=== PATIENT | male | born 1975 | race Caucasian/White ===

== ENCOUNTER 2022-03-18 13:26 | Emergency (ER) | payer MEDICAID, SELFPAY ==
--- NOTE | ~2022-03-18 | XR_ITS ---
EXAMINATION: XR CHEST CLINICAL INFORMATION: Shortness of breath. COMPARISON: None TECHNIQUE: 2 views of the chest were obtained. FINDINGS: No significant abnormality is noted involving the heart, lungs, mediastinum, or soft tissues. Mild degenerative changes of the spine. XR/XR chest 2V IMPRESSION: Unremarkable examination.
[2022-03-18 13:27] VITALS: BP 122/101; PULSE 100; RESP 18; TEMP 36.7; O2SAT 98; BMI 30.7
--- NOTE | 2022-03-18 13:28 | ED.SOB ---
HPI - SOB/Dyspnea General Chief Complaint: General Medical Stated Complaint: chf retaining fluids Time Seen by Provider: 03/18/22 18:27 Source: patient Mode of arrival: ambulatory Limitations: no limitations History of Present Illness HPI Narrative: 47 yo male who is transitioning to female and goes by KERRI w/ history of HTN, fibromyalgia, CHF, hepatitis C here with complaints of leg swelling and some cold symptoms who recently ran out of Lasix. Last dose of Lasix was Friday. No shortness of breath, chest pain, fevers or chills. Patient is currently residing in a jail house. Patient denies any history of DVTs or PEs. Related Data Previous Rx's Medication Instructions Recorded furosemide 40 mg tablet (Lasix) 40 mg PO QAM #60 tabs 03/18/22 Allergies Allergy/AdvReac Type Severity Reaction Status Date / Time cephalexin Allergy Mild Hives Verified 03/18/22 13:29 Review of Systems Review of Systems: Yes all other systems are reviewed and are negative Constitutional: Constitutional: Reports no additional constitutional complaints, Denies body ache(s), Denies chills, Denies fever(s), Denies headache(s) and Denies weakness Eyes: Eyes: Reports no additional eye complaints and Denies change in vision ENT: Reports system reviewed and no additional complaints, except as documented, Denies dizziness, Denies headache(s), Denies nasal congestion, Denies nasal discharge and Denies neck pain Cardiovascular: Cardiovascular: Reports no additional cardiovascular complaints, Denies chest pain, Reports leg edema and Denies dyspnea Respiratory: Respiratory: Reports no additional respiratory complaints, Reports cough and Denies dyspnea Gastrointestinal: Gastrointestinal: Reports no additional gastrointestinal complaints, Denies abdominal pain, Denies diarrhea, Denies nausea and Denies vomiting Genitourinary: Genitourinary: Denies urinary incontinence Musculoskeletal: Musculoskeletal: Reports no additional musculoskeletal complaints, Denies back pain, Denies arthralgias, Denies joint swelling, Denies neck pain, Denies numbness and Denies tingling Integumentary/Breasts: Skin/Breast: Reports system reviewed and no additional complaints, except as docu and Denies rash Neurologic: Reports system reviewed and no additional complaints, except as documented, Denies Abnormal speech present, Denies dizziness, Denies headache(s), Denies numbness, Denies tingling and Denies weakness PMF Social History Social History Advance Directives: Yes Advance Directives on File: No Physical Exam Vital Signs: Vital Signs: Last Vital Signs Temp 98.1 F 03/18/22 13:27 Pulse 100 03/18/22 13:27 Resp 18 03/18/22 13:27 BP 122/101 H 03/18/22 13:27 Pulse Ox 98 03/18/22 13:27 O2 Del Method 03/18/22 13:27 BMI result Body Mass Index 30.7 Const: General: cooperative, healthy appearing, comfortable and no acute distress Orientation/consciousness: patient oriented x3 Limitations: no limitations HEENT: Head: Yes normal to inspection Ears: hearing grossly normal bilaterally General nose exam: Normal external nose present Face and sinus: Yes normal facial exam Mouth: Normal oral and palatal mucosa present Throat: Yes posterior oropharynx normal Eyes: General: appearance normal, both eyes and all related structures Pupils: Equal, round and reactive pupils present Neck: Neck: Yes normal visual inspection Chest: Chest palpation & inspection: normal inspection of the chest Resp: Effort & Inspection: normal respiratory effort Auscultation: clear to auscultation bilaterally Cardio: Rate: regular rate Rhythm: regular rhythm Peripheral pulses: Peripheral pulses 2+ throughout GI: Inspection: Yes normal to inspection Palpation (GI): Soft to palpation and nontender Auscultation: normal bowel sounds Back/Spine/Pelvis: Thoracic/Lumbar Spine: thoracic and lumbar spine normal to inspection Skin: General skin exam: no rashes or lesions noted Neuro: General: patient oriented x3, no focal motor deficits and normal sensation to monofilament Cranial nerves: Yes Equal, round and reactive pupils present Cognition (Neuro): normal cognition Speech: No Abnormal speech present Gait exam (Neuro): Normal gait present Motor exam (neuro): 5/5 motor strength present throughout Extrem: Other: Bilateral edema nonpitting no redness or warmth no tenderness Normal distal pulses General: Yes normal to inspection Course Course Course Narrative: This is rapid medical exam. Deferred additional HPI, ROS, PE to primary provider. 47 yo male who is transitioning to female and goes by KERRI dove/ history of HTN, fibromyalgia, CHF, hepatitis C here with complaints of leg swelling and some cold symptoms who recently ran out of Lasix. Last dose of Lasix was Friday. Will obtain labs, EKG, chest x-ray. Vital state Reevaluation(s) Reevaluation #1: No evidence of CHF on chest x-ray. Vitals are stable. Patient with mild lower extremity swelling. No concern for DVT. Patient ran out of Lasix. Patient is currently in a jail home and been unable to get a touch with her primary care for refill. Will give refill for 2 months and recommend patient follow-up with primary outpatient. Reviewed worrisome signs and symptoms of when to return to the emergency room. Comfortable plan for discharge home. Medical Decision Making Medical Decision Making [facility] Narrative: 47-year-old patient here with increasing leg swelling and cough after running out of Lasix. No chest pain, shortness of breath or fever Will obtain labs, EKG, chest x-ray Differential Diagnosis Differential Diagnoses: The differential diagnosis associated with the presentation includes Low concern for DVT, CHF exacerbation Lab Data [facility] Lab Attestation statement: I reviewed the patient's lab results. 03/18/22 14:46 03/18/22 14:46 Labs: Lab Results 03/18/22 03/18/22 03/18/22 Range/Units 14:46 14:46 14:46 WBC 5.5 (4.8-10.8) X10*3/uL RBC 3.72 L (4.60-5.80) X10*6/uL Hgb 11.4 L (14.0-18.0) g/dl Hct 35.7 L (42.0-52.0) % MCV 96.0 (80.0-98.0) fL MCH 30.6 (27.0-33.0) pg MCHC 31.9 (31.0-36.0) g/dl RDW 13.8 (11.0-16.0) % Plt Count 270 (160-400) X10*3/uL MPV 10.6 (9.4-12.4) fL Immature Gran % (Auto) 0.5 H (0.0-0.4) % Neut % (Auto) 49.1 (45-73) % Lymph % (Auto) 33.7 (20-40) % Cannon % (Auto) 10.0 (2-11) % Eos % (Auto) 5.8 H (0-4) % Baso % (Auto) 0.9 (0-2) % Lymph # (Auto) 1.9 (1.2-4.9) X10*3/uL Cannon # (Auto) 0.6 (0.1-1.2) X10*3/uL Eos # (Auto) 0.3 (0.0-0.4) X10*3/uL Baso # (Auto) 0.1 (0.0-0.2) X10*3/uL Abs Immat Gran (auto) 0.03 (0.00-0.03) X10*3/uL Absolute Neuts (auto) 2.7 (2.0-8.3) x10*3/uL Absolute Nucleated RBC 0.000 (0.0-0.012) X10*3/uL Nucleated RBC % (auto) 0.0 (0.0-0.2) /100WBC Sodium 139 (135-145) mmol/L Potassium 4.6 (3.3-5.1) mmol/L Chloride 108 (96-108) mmol/L Carbon Dioxide 24 (22-29) mmol/L Anion Gap 12 (12-20) BUN 17 H (9-16) mg/dL Creatinine 0.79 (0.5-1.4) mg/dL Estim Creat Clear Calc 137.6 Estimated GFR > 60 Random Glucose 149 H (60-115) mg/dL Calcium 8.6 (8.4-10.2) mg/dL Total Bilirubin 0.3 (0.0-1.0) mg/dL Direct Bilirubin < 0.2 (0.0-0.5) mg/dL AST 42 H (5-37) U/L ALT 56 H (0-40) U/L Alkaline Phosphatase 67 (39-117) U/L Troponin I High Sens < 3.5 (<3.5-35.0) ng/L B-Natriuretic Peptide (<100) pg/mL Total Protein 6.2 L (6.5-8.0) g/dL Albumin 3.6 (3.5-5.0) g/dL 03/18/22 Range/Units 14:46 WBC (4.8-10.8) X10*3/uL RBC (4.60-5.80) X10*6/uL Hgb (14.0-18.0) g/dl Hct (42.0-52.0) % MCV (80.0-98.0) fL MCH (27.0-33.0) pg MCHC (31.0-36.0) g/dl RDW (11.0-16.0) % Plt Count (160-400) X10*3/uL MPV (9.4-12.4) fL Immature Gran % (Auto) (0.0-0.4) % Neut % (Auto) (45-73) % Lymph % (Auto) (20-40) % Cannon % (Auto) (2-11) % Eos % (Auto) (0-4) % Baso % (Auto) (0-2) % Lymph # (Auto) (1.2-4.9) X10*3/uL Cannon # (Auto) (0.1-1.2) X10*3/uL Eos # (Auto) (0.0-0.4) X10*3/uL Baso # (Auto) (0.0-0.2) X10*3/uL Abs Immat Gran (auto) (0.00-0.03) X10*3/uL Absolute Neuts (auto) (2.0-8.3) x10*3/uL Absolute Nucleated RBC (0.0-0.012) X10*3/uL Nucleated RBC % (auto) (0.0-0.2) /100WBC Sodium (135-145) mmol/L Potassium (3.3-5.1) mmol/L Chloride (96-108) mmol/L Carbon Dioxide (22-29) mmol/L Anion Gap (12-20) BUN (9-16) mg/dL Creatinine (0.5-1.4) mg/dL Estim Creat Clear Calc Estimated GFR Random Glucose (60-115) mg/dL Calcium (8.4-10.2) mg/dL Total Bilirubin (0.0-1.0) mg/dL Direct Bilirubin (0.0-0.5) mg/dL AST (5-37) U/L ALT (0-40) U/L Alkaline Phosphatase (39-117) U/L Troponin I High Sens (<3.5-35.0) ng/L B-Natriuretic Peptide 82 (<100) pg/mL Total Protein (6.5-8.0) g/dL Albumin (3.5-5.0) g/dL Independent Interpretation I performed an independent interpretation of an: EKG and Plain X-Ray (I independently reviewed the x-ray and agree with the radiologist's report) Interpretation: I independently reviewed the EKG which shows sinus rhythm with occasional PVCs with rate of 96, normal NC, normal QRS, normal QT Radiology Impression Discussion of test interpretation with radiology: I have reviewed the radiologist's reading. Radiologist Impression: [address] [address] XRay Report Signed Patient: Pj Lopez MR#: [id number] : 1975 Acct:[id number] Age/Sex: 47 / M ADM Date: 03/18/22 Loc: .ED Attending Dr: Ordering Physician: Rosibel Khanna NP Date of Service: 03/18/22 Procedure(s): XR chest 2V Accession Number(s): [id number] cc: Rosibel Khanna NP~ EXAMINATION: XR CHEST CLINICAL INFORMATION: Shortness of breath. COMPARISON: None TECHNIQUE: 2 views of the chest were obtained. FINDINGS: No significant abnormality is noted involving the heart, lungs, mediastinum, or soft tissues. Mild degenerative changes of the spine. XR/XR chest 2V IMPRESSION: Unremarkable examination. Discharge Plan Discharge Clinical Impression: Medication refill Patient Disposition: Home, Self-Care Instructions: Medicine Refill (ED) Additional Instructions: Labs, EKG and chest x-ray are reassuring. Elevate your legs, limit sodium Prescriptions: New furosemide [Lasix] 40 mg tablet 40 mg PO QAM Qty: 60 0RF Referrals: Physician,Nonstaff [Primary Care Provider] -
--- NOTE | 2022-03-18 13:29 | ECG_ITS ---
Test Reason : edema Blood Pressure : / mmHG Vent. Rate : 096 BPM Atrial Rate : 096 BPM P-R Int : 184 ms QRS Dur : 096 ms QT Int : 368 ms P-R-T Axes : 031 022 036 degrees QTc Int : 464 ms Sinus rhythm with occasional Premature ventricular complexes Otherwise normal ECG No previous ECGs available Referred By: Rosibel Estrada Electronically Signed By:Siva Lopez
[2022-03-18 15:07] LABS: Basophils Absolute Auto 0.1 X10*3/uL (0.0-0.2); Basophils Percent Auto 0.9 % (0-2); Eosinophils Absolute Auto 0.3 X10*3/uL (0.0-0.4); Eosinophils Percent Auto 5.8 % (0-4); Hematocrit 35.7 % (42.0-52.0); Hemoglobin 11.4 g/dl (14.0-18.0); Imm Gran Abs Auto 0.03 X10*3/uL (0.00-0.03); Imm Gran Pct Auto 0.5 % (0.0-0.4); Lymphocytes Absolute Auto 1.9 X10*3/uL (1.2-4.9); Lymphocytes Percent Auto 33.7 % (20-40); MANUAL DIFF FLAG NO; Mean Corpuscular HGB Conc 31.9 g/dl (31.0-36.0); Mean Corpuscular Hemoglobin 30.6 pg (27.0-33.0); Mean Platelet Volume 10.6 fL (9.4-12.4); Monocytes Absolute Auto 0.6 X10*3/uL (0.1-1.2); Neutrophils Absolute Auto 2.7 x10*3/uL (2.0-8.3); Neutrophils Percent Auto 49.1 % (45-73); Platelet Count 270 X10*3/uL (160-400); Red Blood Count 3.72 X10*6/uL (4.60-5.80); Red Cell Distribution Width 13.8 % (11.0-16.0); White Blood Count 5.5 X10*3/uL (4.8-10.8)
[2022-03-18 15:22] LABS: Alanine Aminotransferase 56 U/L (0-40); Albumin Level 3.6 g/dL (3.5-5.0); Alkaline Phosphatase 67 U/L (39-117); Anion Gap 12 (12-20); Aspartate Amino Transferase 42 U/L (5-37); Bilirubin Direct < 0.2 mg/dL (0.0-0.5); Bilirubin Total 0.3 mg/dL (0.0-1.0); Blood Urea Nitrogen 17 mg/dL (9-16); Calcium 8.6 mg/dL (8.4-10.2); Carbon Dioxide 24 mmol/L (22-29); Chloride 108 mmol/L (96-108); Creatinine Clr Calc Pharmacy 137.6; Estimated Glomerular Filt Rate > 60; Glucose Random 149 mg/dL (60-115); Potassium 4.6 mmol/L (3.3-5.1); Sodium 139 mmol/L (135-145); Total Protein 6.2 g/dL (6.5-8.0)
[2022-03-18 15:28] LABS: B Type Natriuretic Peptide 82 pg/mL (<100)
[2022-03-18 15:31] LABS: Troponin-I High Sensitivity < 3.5 ng/L (<3.5-35.0)
== END 2022-03-18 18:34 | disposition home or self-care (01) ==
PROVIDERS: Nurse Practitioner Family; Emergency Provider Emergency Medicine Emergency Medical Services
DX: R06.02 Shortness of breath (principal); I10 Essential (primary) hypertension; R60.0 Localized edema; Z76.0 Encounter for issue of repeat prescription; Z79.899 Other long term (current) drug therapy
CPT/HCPCS: 36415; 71046; 80048; 80076; 83880; 84484; 85025; 93005; 99283

== ENCOUNTER → 2022-05-16 14:03 | Outpatient (REF) | payer MEDICARE, MEDICAID, OTHER, SELFPAY ==
--- NOTE | 2022-05-16 14:12 | CA_ITS ---
Transthoracic Echocardiogram Patient (Last, First, Middle): Pj Lopez, Gender: Male Date of : 1975 Age: 47 Procedure Date: 05/16/2022 Procedure Type: Transthoracic Echocardiogram Location: OP Height: 180.34 cm Weight: 113.4 kg BSA: 2.32 m2 Heart Rate: 83 bpm BP: 124 / 78 mmHg Surgical Elastic Knitter: SB Referring MD: Cherie Benítez Symptoms: HX OF HF WITH EF...15% I50.1 Study Quality: Adequate ECG Rhythm: Sinus Conclusions: - The left ventricular systolic function is mildly decreased. The calculated ejection fraction is 44% by biplane method. - No obvious valvular pathology seen on this study. Findings Left Ventricle Mildly increased left ventricular cavity size. There is normal left ventricular wall thickness. The left ventricular systolic function is mildly decreased. The calculated ejection fraction is 44% by biplane method. There is mild global hypokinesis. Diastolic function is normal for age. Right Ventricle Normal right ventricular cavity size and systolic function. Atria Both atria are normal in size. Aortic Valve There is a normal trileaflet aortic valve. There is no aortic valve stenosis. There is no aortic valve regurgitation. Mitral Valve The mitral valve appears normal. There is trace mitral valve regurgitation. There is no mitral valve stenosis. Pulmonic Valve The pulmonic valve is likely normal. Tricuspid Valve Normal tricuspid valve structure. There is trace tricuspid valve regurgitation. There is no evidence of pulmonary hypertension. Great Vessels The asc aorta and aortic arch are normal in size. Venous The inferior vena cava was not well visualized. Pericardium/Pleural There is no evidence of pericardial effusion. Prior Study Comparison No prior study available for comparison. Recommendations, Care & Conclusions No obvious valvular pathology seen on this study. Measurements 2D Linear Measurements IVSd: 0.71 0.6-0.9/0.6-1.0 cm LVIDd: 5.79 3.9-5.3/4.2-5.9 cm LVIDd Index: 2.50 2.4-3.2/2.2-3.1 cm/m2 LVIDs: 5.01 2.0-3.6 cm LVPWd: 0.70 0.7-1.1 cm LA Diam: 3.90 2.7-3.8/3.0-4.0 cm LAIDs Index: 1.68 1.5-2.3 cm/m2 LV Mass: 186.47 67-162/88-224 g LV Mass Index: 80.38 43-95/49-115 g/m2 LVOT Diam: 2.40 3.0+(-)1.3 cm 2D Systolic Function EF 4C: 51.30 >55% EF 2C: 28.20 >55% EF BiP: 43.90 >55% Mitral Valve MV Pk E: 0.60 MV PK A: 0.79 MV Decel Time: 140.00 E/A: 0.80 E'Lateral: 6.53 E'Medial: 7.72 E/E' Med: 7.80 E/E' Lat: 9.20 PHT: 41.00 MVA PHT: 5.37 Decel [place]: 4.27 Aortic Valve AoV Pk Crow: 1.24 AoV Pk Grad: 6.00 DANIS: 3.86 LVOT LVOT Pk Crow: 1.06 LVOT Mn Crow: 0.69 LVOT VTI: 0.21 LVOT Pk Grad: 4.00 LVOT Mn Grad: 2.00 LVOT Diam: 2.40 LVOT Area: 4.52 Diastolic Function MV Pk E: 0.60 MV Pk A: 0.79 E/A: 0.80 E'Medial: 7.72 E/E' Med: 7.80 E' Laterial: 6.53 E/E' Lat: 9.20 Right Ventricle TAPSE (mm): 22.80 TVS' Crow: 11.40 Tricuspid Valve RA Press: 3.00 Great Vessels Aorta Sinus of Valsalva: 3.50 2.0-3.5 cm Ao Asc: 3.40 2.1-3.4 cm Ao Arch: 3.10 Ao Desc: 1.80 Pulmonary Valve PV Pk Crow: 1.20 Peak PV Grad: 6.00 Updated in Other Vendor System with Status of Final Raymon Morales MD electronically signed on 05/17/2022 12:24:44 PM with status of Final
== END ==
LOC: HO.CARD 14:03
PROVIDERS: Visit Provider Internal Medicine
DX: I50.1 Left ventricular failure, unspecified (principal)
CPT/HCPCS: 93306; Q9957

== ENCOUNTER 2022-07-30 12:55 | Inpatient (IN) | payer MEDICARE, MEDICAID, SELFPAY ==
--- NOTE | ~2022-07-30 | CT_ITS ---
EXAMINATION: CT ABDOMEN AND PELVIS WITH CONTRAST CLINICAL INFORMATION: Abdominal pain and constipation COMPARISON: None available. TECHNIQUE: Multidetector volumetric images were obtained from the superior aspect of the liver through the pubic symphysis following administration 85 mL of Omnipaque 350 intravenous contrast. Sagittal and coronal reformatted images were obtained on the technologist's workstation. Oral contrast: Yes This CT examination was performed using dose optimization techniques as appropriate, variously including the following: *Automated exposure control *Adjustment of mA and/or kV according to patient size (this includes techniques or standardized protocols for targeted exams where dose is matched to indication/reason for exam; i.e. extremities or head) *Use of iterative reconstruction technique DLP: 02/20/2005 mGy-cm FINDINGS: LUNG BASES: The visualized lung bases are unremarkable. LIVER, GALLBLADDER, AND BILIARY TREE: Enlarged fatty liver. No focal liver lesion. The gallbladder is been removed. No biliary duct dilatation. PANCREAS: Unremarkable. SPLEEN: The spleen is normal in size. There is question 1.3 cm splenule adjacent to the posterior inferior spleen and tiny amount of fluid versus changes related to old trauma. Embolization coils seen in the distal splenic artery. ADRENAL GLANDS: Unremarkable. KIDNEYS AND URETERS: The kidneys are normal in size, shape, and attenuation. No hydronephrosis, hydroureter, or calculi seen. No perinephric stranding. 1 cm cyst in the lower pole the left kidney. No imaging follow-up recommended. BLADDER: Unremarkable. GASTROINTESTINAL TRACT: The appendix is dilated. There is significant stranding of the surrounding fat and small amount of fluid. Appearance is suggestive of acute appendicitis. There are adjacent small air collections questionable for small abscesses versus contained perforation. No free air. Severe constipation. Mild diverticulosis of the colon. No evidence of diverticulitis. Fluid-filled loops of small bowel probably representing ileus. ABDOMINAL WALL: Small umbilical hernia containing fat. LYMPH NODES: Normal. VASCULAR: Unremarkable. PELVIC VISCERA: Unremarkable. OSSEOUS STRUCTURES: Degenerative changes of the spine. CT/CT abdomen pelvis w IV con IMPRESSION: Acute appendicitis with extensive inflammatory changes in the right lower quadrant. Small periappendiceal air pockets questionable for contained perforation versus small abscesses. No evidence of free air. Constipation. Probable posttraumatic changes to the spleen. Enlarged fatty liver. Findings were communicated to Tana EVANS by telephone on 07/30/2022 at 1951 hours Fleischner guidelines were followed.
--- NOTE | ~2022-07-30 | XR_ITS ---
EXAMINATION: XR CHEST CLINICAL INFORMATION: 2 please COMPARISON: 03/18/2022 TECHNIQUE: Frontal view of the chest was obtained. FINDINGS: There is low lung volume bilaterally with elevation of right and left hemidiaphragm and mildly increased interstitial markings. The nasogastric tube is placed, coiled in the stomach. XR/XR chest 1V IMPRESSION: Satisfactory position of nasogastric
--- NOTE | ~2022-07-30 | XR_ITS ---
EXAMINATION: XR ABDOMEN KUB CLINICAL INDICATION: Vomiting. Postop ileus. COMPARISON: Previous CT of the abdomen and pelvis 07/30/2022 TECHNIQUE: AP view of the abdomen. FINDINGS: Stomach, small and large bowel are distended and air-filled. Appearance is suggestive of an ileus. No free air. Right lower quadrant drain. Surgical clips in the right upper quadrant suggestive of previous cholecystectomy. Lower abdominal skin kentrell. Mild degenerative changes of the spine. XR/XR KUB IMPRESSION: Generalized ileus.
[2022-07-30 13:33] VITALS: BP 106/73; PULSE 112; RESP 18; TEMP 36.1; O2SAT 98; BMI 39.7
--- NOTE | 2022-07-30 13:33 | ED_ITS ---
HPI - Abdominal Pain General Chief Complaint: Abdominal Pain Stated Complaint: ? Hernia Time Seen by Provider: 07/30/22 16:02 Source: patient Mode of arrival: ambulatory Limitations: physical limitation History of Present Illness HPI narrative: Patient is a 47-year-old with history of CHF, afib s/p ablation, still on Eliquis, substance use disorder (heroin and meth), has been clean for the past 6 months presenting with right lower abdominal pain for four days. Patient states that while using meth, had to frequently manually disimpact stool. Has not had to disimpact for the past 3 months or so. Today was straining to have a bowel movement in the ED waiting room and felt a sudden increase in abdominal pain which patient describes as a tearing and also felt flushed. Also complaining of nausea. Deneis hematemesis, hematochezia or melena. Does report that bowel movement smelled like old stool. Denies fevers. Denies chest pain, dyspnea or cough. Denies dizziness or lightheadedness, denies syncope. Reports history of ruptured spleen as well as cholecystectomy and perforated bowel following cholecystectomy in the past. MD elicited complaint: abdominal pain Pertinent past history: constipation Onset (ago): day(s) Pain Consistency: constant Location: RLQ Severity: severe Pain scale (0-10): 8 Quality: burning Radiation: none Migration to: no migration Exacerbating factors: movement Relieving factors: rest Associated symptoms: nausea Related Data Previous Rx's Medication Instructions Recorded furosemide 40 mg tablet (Lasix) 40 mg PO QAM #60 tabs 03/18/22 Allergies Allergy/AdvReac Type Severity Reaction Status Date / Time cephalexin Allergy Mild Hives Verified 03/18/22 13:29 Review of Systems Review of Systems As per HPI. Yes all other systems are reviewed and are negative Constitutional: Reports as per HPI [facility] Social History Social History Advance Directives: No Advance Directives Information Provided: Yes Physical Exam ED Vital Signs: Vital Signs - 24 hr 07/30/22 13:33 07/30/22 16:14 Temperature 97.0 F 97.6 F Pulse Rate 112 H 101 H Respiratory Rate 18 20 Blood Pressure 106/73 126/84 Pulse Oximetry 98 96 Oxygen Delivery Method Room Air Room Air BMI result Body Mass Index 39.7 Vital signs have been reviewed and appear to be correct. Blood pressure normal. Heart rate mildly elevated. Respiratory rate normal. Temperature normal. Oxygen saturation normal. Const General: cooperative and no acute distress Orientation/consciousness: oriented to person, oriented to place, oriented to time and patient oriented x3 Limitations: no limitations HENMT Head: Yes normocephalic and Yes atraumatic Ears: external ears normal General nose exam: Normal external nose present Face and sinus: Yes face symmetric Mouth: oropharynx normal and moist mucous membranes Teeth and gingiva: poor dentition Throat: Yes uvula midline Eyes Pupils: Equal, round and reactive pupils present Neck Neck: Yes normal visual inspection and Yes supple Resp Effort & Inspection: normal respiratory effort and able to speak in complete sentences Auscultation: clear to auscultation bilaterally Cardio Rate: regular rate Rhythm: regular rhythm Heart sounds: S1 normal heart sound present and S2 normal heart sound present GI Inspection: Yes normal to inspection, No distended, Yes Abdominal panniculus present, Yes scar, No visible herniation and No visible pulsation Palpation (GI): Soft to palpation, Tenderness to palpation present (GI) in the RLQ, no guarding, no hernias and No Rebound tenderness present Auscultation: normoactive bowel sounds General: Yes no CVA tenderness Back/Spine/Pelvis Back: no CVA tenderness Skin General skin exam: elasticity normal and turgor normal Neuro General: oriented to person, oriented to place, oriented to time, patient oriented x3, moves all extremities, no focal motor deficits and CN's II-XI intact bilaterally Cranial nerves: Yes Equal, round and reactive pupils present Cognition (Neuro): normal cognition Extrem General: Yes full ROM, Yes no pedal edema and Yes no calf tenderness Psych Mental Status: mental status grossly normal Affect: normal affect Thought process: Normal thought process present Course Course Course Narrative: RME: 47yo F w/pmhx ruptured spleen, s/p cholecystectomy, HTN, CHF, A.fib on Eliquis c/o suspected hernia, feels ripping in abdomen x3 days w/assoc nausea. Admits to chronic constipation, previously requiring self disimpaction. last BM 2 days ago abdomen soft diffusely ttp, no rebound or guarding labs, UA, CTAP ordered Full HPI, ROS and PE to be performed by primary ED provider. 19:[address] Magallon, radiologist, patient's CT positive for acute appendicitis. [place] text to Dr. Schultz who will admit. [place] ordered. Medical Decision Making Medical Decision Making [facility] Narrative: Patient is a 47-year-old with history of CHF, afib s/p ablation, still on Eliquis, substance use disorder (heroin and meth), has been clean for the past 6 months presenting with right lower abdominal pain for four days. On exam patient is awake, A+Ox3, in no acute distress, nontoxic appearing, normal neurological exam without focal deficits, abdomen soft, TTP RLQ, no guarding or rebound tenderness, no CVA tenderness. Concern for hernia, diverticulitis, appendicitis, UTI/STI/pyelonephritis, constipation. Less likely AAA rupture, mesenteric ischemia, perforated viscous, bowel obstruction. No concern for sepsis. Plan: labs, CT abdomen pelvis, pain management Please refer to course for remaining clinical decision making. Differential Diagnosis Differential Diagnoses: The differential diagnosis associated with the presentation includes As above. Admission/Observation Consideration of admission/observation: Escalation of care including admission/observation considered Consult Healthcare Provider Management of the patient was discussed with: Chamber Worker (Dr. Schultz) Lab Data [facility] Lab Attestation statement: I reviewed the patient's lab results. 07/30/22 14:04 07/30/22 14:04 Labs: Lab Results 07/30/22 07/30/22 07/30/22 Range/Units 14:04 14:04 14:04 WBC 9.2 (4.8-10.8) X10*3/uL RBC 4.10 L (4.20-5.50) X10*6/uL Hgb 13.3 (12.0-16.0) g/dl Hct 40.9 (37.0-47.0) % MCV 99.8 H (80.0-98.0) fL MCH 32.4 (27.0-33.0) pg MCHC 32.5 (31.0-35.0) g/dl RDW 13.2 (11.0-16.0) % Plt Count 235 (160-400) X10*3/uL MPV 11.1 (9.4-12.3) fL Immature Gran % (Auto) 0.4 (0.0-0.4) % Neut % (Auto) 62.4 (45-73) % Lymph % (Auto) 25.0 (20-40) % [place] % (Auto) 9.5 (2-11) % Eos % (Auto) 2.1 (0-4) % Baso % (Auto) 0.6 (0-2) % Lymph # (Auto) 2.3 (1.2-4.9) X10*3/uL [place] # (Auto) 0.9 (0.1-1.2) X10*3/uL Eos # (Auto) 0.2 (0.0-0.4) X10*3/uL Baso # (Auto) 0.1 (0.0-0.2) X10*3/uL Abs Immat Gran (auto) 0.04 H (0.00-0.03) X10*3/uL Absolute Neuts (auto) 5.8 (2.0-8.3) x10*3/uL Absolute Nucleated RBC 0.000 (0.0-0.012) X10*3/uL Nucleated RBC % (auto) 0.0 (0.0-0.2) /100WBC PT 12.4 (10.0-13.1) SEC INR 1.1 (0.9-1.1) Sodium 135 (135-145) mmol/L Potassium 4.5 (3.3-5.1) mmol/L Chloride 102 (96-108) mmol/L Carbon Dioxide 24 (22-29) mmol/L Anion Gap 14 (12-20) BUN 27 H (9-16) mg/dL Creatinine 1.16 (0.5-1.4) mg/dL Estim Creat Clear Calc 88.1 Estimated GFR 50 Random Glucose 283 H (60-115) mg/dL Calcium 9.4 D (8.4-10.2) mg/dL Magnesium 2.0 (1.6-2.6) mg/dL Total Bilirubin 0.6 (0.0-1.0) mg/dL Direct Bilirubin 0.2 (0.0-0.5) mg/dL AST 52 H (5-31) U/L ALT 88 H (0-31) U/L Alkaline Phosphatase 81 (39-117) U/L Total Protein 7.3 (6.5-8.0) g/dL Albumin 3.7 (3.5-5.0) g/dL Lipase 16 (8-78) U/L Independent Interpretation I performed an independent interpretation of an: CT Scan Interpretation: I independently reviewed the CT scan and agree with the radiologist's interpretation. Radiology Impression Discussion of test interpretation with radiology: I have reviewed the radiologist's reading. Radiologist Impression: IMPRESSION: Acute appendicitis with extensive inflammatory changes in the right lower quadrant. Small periappendiceal air pockets questionable for contained perforation versus small abscesses. No evidence of free air. Constipation. Probable posttraumatic changes to the spleen. Enlarged fatty liver. ? Findings were communicated to Tana EVANS by telephone on 07/30/2022 at 1951 hours Fleischner guidelines were followed. External Record Review External record reviewed: Inpatient record, Office record and Outpatient record Prescription Management I considered prescription management with: Pain Medication and Antibiotic Medications Administered Discontinued Medications Generic Name Dose Route Start Last Admin Trade Name Freq PRN Reason Stop Dose Admin Acetaminophen 650 mg 07/30/22 14:18 07/30/22 17:46 Acetaminophen 325 Mg Tablet PO 07/30/22 14:19 Not Given ONCE ONE Sodium Chloride 1,000 mls @ 999 mls/hr 07/30/22 16:30 07/30/22 17:45 Ns IV 07/30/22 17:30 999 mls/hr .Q1H1M NELLY Administration Iohexol 100 ml 07/30/22 18:51 07/30/22 18:52 Iohexol 350 Mg/Ml 100 Ml Infus..Btl IV 07/30/22 18:52 85 ml ONCE ONE Administration Morphine Sulfate 4 mg 07/30/22 16:16 07/30/22 17:44 Morphine Sulfate 4 Mg/Ml Cartridge IVPUSH 07/30/22 16:17 4 mg ONCE ONE Administration Protocol Ondansetron HCl 4 mg 07/30/22 16:16 07/30/22 17:44 Ondansetron Hcl 4 Mg/2 Ml Vial IVPUSH 07/30/22 16:17 4 mg ONCE ONE Administration Discharge Plan Discharge Clinical Impression: Acute appendicitis Patient Disposition: Admitted As Inpatient Prescriptions: No Action furosemide [Lasix] 40 mg tablet 40 mg PO QAM Qty: 60 0RF
[2022-07-30 14:11] LABS: MANUAL DIFF FLAG NO
[2022-07-30 14:19] LABS: Basophils Absolute Auto 0.1 X10*3/uL (0.0-0.2); Basophils Percent Auto 0.6 % (0-2); Eosinophils Absolute Auto 0.2 X10*3/uL (0.0-0.4); Eosinophils Percent Auto 2.1 % (0-4); Hematocrit 40.9 % (37.0-47.0); Hemoglobin 13.3 g/dl (12.0-16.0); Imm Gran Abs Auto 0.04 X10*3/uL (0.00-0.03); Imm Gran Pct Auto 0.4 % (0.0-0.4); Lymphocytes Absolute Auto 2.3 X10*3/uL (1.2-4.9); Mean Corpuscular HGB Conc 32.5 g/dl (31.0-35.0); Mean Corpuscular Hemoglobin 32.4 pg (27.0-33.0); Mean Corpuscular Volume 99.8 fL (80.0-98.0); Mean Platelet Volume 11.1 fL (9.4-12.3); Monocytes Absolute Auto 0.9 X10*3/uL (0.1-1.2); Monocytes Percent Auto 9.5 % (2-11); Neutrophils Absolute Auto 5.8 x10*3/uL (2.0-8.3); Neutrophils Percent Auto 62.4 % (45-73); Platelet Count 235 X10*3/uL (160-400); Red Cell Distribution Width 13.2 % (11.0-16.0); White Blood Count 9.2 X10*3/uL (4.8-10.8)
[2022-07-30 14:27] LABS: INTERNATIONAL NORM RATIO 1.1 (0.9-1.1); Prothrombin Time 12.4 SEC (10.0-13.1)
[2022-07-30 14:31] LABS: Alanine Aminotransferase 88 U/L (0-31); Albumin Level 3.7 g/dL (3.5-5.0); Alkaline Phosphatase 81 U/L (39-117); Anion Gap 14 (12-20); Aspartate Amino Transferase 52 U/L (5-31); Bilirubin Direct 0.2 mg/dL (0.0-0.5); Bilirubin Total 0.6 mg/dL (0.0-1.0); Blood Urea Nitrogen 27 mg/dL (9-16); Calcium 9.4 mg/dL (8.4-10.2); Carbon Dioxide 24 mmol/L (22-29); Chloride 102 mmol/L (96-108); Creatinine Clr Calc Pharmacy 88.1; Estimated Glomerular Filt Rate 50; Glucose Random 283 mg/dL (60-115); Lipase 16 U/L (8-78); Potassium 4.5 mmol/L (3.3-5.1); Sodium 135 mmol/L (135-145); Total Protein 7.3 g/dL (6.5-8.0)
[2022-07-30 16:14] VITALS: BP 126/84; PULSE 101; RESP 20; TEMP 36.4; O2SAT 96
[2022-07-30] MEDS: Morphine Sulfate 4 MG/ML CARTRIDGE IVPUSH ×2 (17:44→20:27)
[2022-07-30] MEDS: ondansetron HCL 4 MG/2 ML VIAL IVPUSH ×3 (17:44→23:16)
[2022-07-30] MEDS: 0.9 % Sodium Chloride 1,000 ML 999 ML IV (17:45)
[2022-07-30] MEDS: iohexoL 350 MG/ML 100 ML INFUS..BTL IV (18:52)
[2022-07-30 20:07] VITALS: BP 125/87; PULSE 101; RESP 16; TEMP 37.1
--- NOTE | 2022-07-30 20:10 | PC.NURSE ---
patient received in bed with eyes open patient in no pain at this time patient vitals are stable patient is AAOX4 patient in the process of being admitted patient ism aware patient will continue to be monitored for safety
[2022-07-30 20:27] VITALS: RESP 16
[2022-07-30] MEDS: Piperacillin Sodium/Tazobactam 3.375 GM in 0.9 % Sodium Chloride 50 ML IV (20:28)
--- NOTE | 2022-07-30 20:31 | PC.NURSE ---
patient received all pain and nausea medication with no issues patient will be receiving antibiotics after blood cultures are received patient will continue to be monitored for safety
--- NOTE | 2022-07-30 20:55 | PHA.MEDREC ---
Pharmacy Consult ? Medication Reconciliation Pharmacy has completed the medication reconciliation. Pt currently taking eliquis 5 mg bid
--- NOTE | 2022-07-30 21:10 | PM.HPGS ---
History of Present Illness History of Present Illness Date of Service: 08/02/22 Chief complaint: Appendiceal abscess Narrative: Pj Lopez (Issie) is a 47 year old male, identifying as female, here in the ED for abdominal pain. She says that she has had this pain for over 1 week. She says that this is mostly around the area of her umbilicus, but extends to the right side of her abdomen. She says she had a bad episode earlier today that was why she decided to come to the ED. She denies any fever or chills, although says she may have felt warm . She denies any vomitting. She is staying in a program for drug addiction here in [place] for LGBTQ patients. 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 She also says that she had laparoscopic cholecystectomy about 5 years ago and had a bowel injury requiring repair. She says that this bowel repair was done through a small incision as well near the umbilicus. She ambulates with a walker. She says she has multiple body aches and pains as baseline and has difficulty with balance and ambulation with poor muscle strength. Review of Systems Constitutional: Constitutional: Denies anorexia and Denies fever(s) Cardiovascular: Cardiovascular: Denies chest pain and Denies dyspnea Respiratory: Respiratory: Denies cough and Denies dyspnea Gastrointestinal: Gastrointestinal: Denies hematochezia, Denies constipation and Denies diarrhea Genitourinary: Genitourinary: Denies difficulty urinating Psychiatric: Psychiatric: Reports depression PMFSH Past Medical History Medical History (Updated 07/30/22 @ 21:29 by Jakob Scuhltz MD) Atrial fibrillation CHF (congestive heart failure) Depression Drug abuse in remission Hypertension Obesity Surgical History Surgical History (Updated 07/31/22 @ 10:15 by Jakob Schultz MD) S/P ablation of atrial fibrillation Status post laparoscopic cholecystectomy Status post laparoscopic procedure Social History Social History Household Members: Other Housing: Other Housing Other:: snf Do you presently have visiting nurse or other home services: Yes Alcohol intake: never Patient Tobacco Use Status: Never used Tobacco Smoked in Last 30 Days: No Use of substances other than those prescribed or required for medical reasons: No Substance Use Type: Methamphetamine Substance Use Type Other:: crystal meth 6 months drug free Substance Use Frequency: Monthly Substance Use Frequency Other:: clean for 6 months Last Used Substance: Weeks (ago) Last Used Substance Other:: crystal meth Currently Displaying Signs/Symptoms of Drug Intoxication Withdrawal: No Any prior treatment program specific to substance use: No Have you been hit, kicked, punched, or otherwise hurt by someone within the past year? If so, by whom?: No Do you feel safe in your current relationship?: No Current Relationship Is there a partner from a previous relationship who is making you feel unsafe now?: No Are you made to feel afraid or neglected: No Are you DNR?: No Advance Directives: No Advance Directives Information Provided: Yes Do you have thoughts of harming others: None Do you have a plan to hurt others: No Plan Recently lost weight without trying: No How much weight loss: Not applicable Eating poorly because of decreased appetite: No Nutrition screen score: 0 Nutrition Risks: No Nutritional Risk Poor oral hygiene: No service: No Current occupational status: unemployed Meds Allergies Allergy/AdvReac Type Severity Reaction Status Date / Time cephalexin Allergy Mild Hives Verified 03/18/22 13:29 Active Medications: Current Medications Heparin Sodium (Porcine) (Heparin Sodium,Porcine 5,000 Unit/Ml Vial) 5,000 unit SUBCUT Q8H [facility] Lactated Ringer's (Lr) 1,000 mls @ 100 mls/hr IVCONT .Q10H [facility] Piperacillin Sod/Tazobactam (Sod 3.375 gm/ Sodium Chloride) 50 mls @ 100 mls/hr IV Q6H [facility] Morphine Sulfate (Morphine Sulfate 4 Mg/Ml Cartridge) 3 mg IVPUSH Q3H PRN; Protocol PRN Reason: Pain, Severe (Pain Scale 7-10) Ondansetron HCl (Ondansetron Hcl 4 Mg/2 Ml Vial) 4 mg IVPUSH Q6H PRN PRN Reason: nausea Pharmacy Consult (Consult Rx Perform Med Rec) 1 each MISCELLANE ONCE PRN PRN Reason: Consult order Sodium Chloride (0.9 % Sodium Chloride Flush 3 Ml Syringe) 3 ml IVFLUSH QSHIFT [facility] Sodium Chloride (0.9 % Sodium Chloride Flush 3 Ml Syringe) 3 ml IVFLUSH QSHIFT [facility] Home Medications Medication Instructions Recorded Confirmed Last Taken Type apixaban 5 mg tablet (Eliquis) 5 mg PO BID 07/30/22 07/30/22 07/30/22 History atomoxetine 60 mg capsule 60 mg PO DAILY 07/30/22 07/30/22 07/30/22 History (Strattera) buspirone 5 mg tablet 5 mg PO TID 07/30/22 07/30/22 07/30/22 History cyclobenzaprine 10 mg tablet 10 mg PO BID PRN muscle spasm 07/30/22 07/30/22 07/29/22 History docusate sodium 100 mg capsule 100 mg PO BID 07/30/22 07/30/22 07/30/22 History escitalopram oxalate 10 mg tablet 15 mg PO DAILY 07/30/22 07/30/22 07/30/22 History estradiol 0.1 mg/24 hr weekly 3 patch transdermal Q72H 07/30/22 07/30/22 07/28/22 History transdermal patch finasteride 5 mg tablet 5 mg PO DAILY 07/30/22 07/30/22 07/30/22 History lisinopril 20 mg tablet 20 mg PO DAILY 07/30/22 07/30/22 07/30/22 History mirtazapine 30 mg tablet 30 mg PO BEDTIME 07/30/22 07/30/22 07/29/22 History sennosides 8.6 mg tablet (senna) 8.6 mg PO BID 07/30/22 07/30/22 07/30/22 History topiramate 50 mg tablet 50 mg PO BEDTIME 07/30/22 07/30/22 07/29/22 History Physical Exam Vital Signs: Vital Signs: Last Vital Signs Temp 97.6 F 07/30/22 16:14 Pulse 101 H 07/30/22 16:14 Resp 16 07/30/22 20:27 BP 126/84 07/30/22 16:14 Pulse Ox 96 07/30/22 16:14 O2 Del Method Room Air 07/30/22 16:14 BMI result Body Mass Index 39.7 Const: Other: looks well, not toxic looking General: no acute distress and alert Resp: Effort & Inspection: normal respiratory effort Auscultation: clear to auscultation bilaterally Cardio: Rate: tachycardic GI: Palpation (GI): Soft to palpation, not firm, Tenderness to palpation present (GI) (some tenderness mostly around umbilicus) and no guarding Extrem: General: Yes no pedal edema Results Results Labs: Short CBC 07/30/22 Range/Units 14:04 WBC 9.2 (4.8-10.8) X10*3/uL Hgb 13.3 (12.0-16.0) g/dl Hct 40.9 (37.0-47.0) % Plt Count 235 (160-400) X10*3/uL BMP 07/30/22 14:04 Sodium 135 Potassium 4.5 Chloride 102 Carbon Dioxide 24 BUN 27 H Creatinine 1.16 Calcium 9.4 D Liver Function 07/30/22 Range/Units 14:04 Total Bilirubin 0.6 (0.0-1.0) mg/dL Direct Bilirubin 0.2 (0.0-0.5) mg/dL AST 52 H (5-31) U/L ALT 88 H (0-31) U/L Alkaline Phosphatase 81 (39-117) U/L Albumin 3.7 (3.5-5.0) g/dL Laboratory Results WBC 9.2 X10*3/uL (4.8-10.8) 07/30/22 14:04 RBC 4.10 X10*6/uL (4.20-5.50) L 07/30/22 14:04 Hgb 13.3 g/dl (12.0-16.0) 07/30/22 14:04 Hct 40.9 % (37.0-47.0) 07/30/22 14:04 MCV 99.8 fL (80.0-98.0) H 07/30/22 14:04 MCH 32.4 pg (27.0-33.0) 07/30/22 14:04 MCHC 32.5 g/dl (31.0-35.0) 07/30/22 14:04 RDW 13.2 % (11.0-16.0) 07/30/22 14:04 Plt Count 235 X10*3/uL (160-400) 07/30/22 14:04 MPV 11.1 fL (9.4-12.3) 07/30/22 14:04 Immature Gran % (Auto) 0.4 % (0.0-0.4) 07/30/22 14:04 Neut % (Auto) 62.4 % (45-73) 07/30/22 14:04 Lymph % (Auto) 25.0 % (20-40) 07/30/22 14:04 [place] % (Auto) 9.5 % (2-11) 07/30/22 14:04 Eos % (Auto) 2.1 % (0-4) 07/30/22 14:04 Baso % (Auto) 0.6 % (0-2) 07/30/22 14:04 Lymph # (Auto) 2.3 X10*3/uL (1.2-4.9) 07/30/22 14:04 [place] # (Auto) 0.9 X10*3/uL (0.1-1.2) 07/30/22 14:04 Eos # (Auto) 0.2 X10*3/uL (0.0-0.4) 07/30/22 14:04 Baso # (Auto) 0.1 X10*3/uL (0.0-0.2) 07/30/22 14:04 Abs Immat Gran (auto) 0.04 X10*3/uL (0.00-0.03) H 07/30/22 14:04 Absolute Neuts (auto) 5.8 x10*3/uL (2.0-8.3) 07/30/22 14:04 Absolute Nucleated RBC 0.000 X10*3/uL (0.0-0.012) 07/30/22 14:04 Nucleated RBC % (auto) 0.0 /100WBC (0.0-0.2) 07/30/22 14:04 PT 12.4 SEC (10.0-13.1) 07/30/22 14:04 INR 1.1 (0.9-1.1) 07/30/22 14:04 Sodium 135 mmol/L (135-145) 07/30/22 14:04 Potassium 4.5 mmol/L (3.3-5.1) 07/30/22 14:04 Chloride 102 mmol/L (96-108) 07/30/22 14:04 Carbon Dioxide 24 mmol/L (22-29) 07/30/22 14:04 Anion Gap 14 (12-20) 07/30/22 14:04 BUN 27 mg/dL (9-16) H 07/30/22 14:04 Creatinine 1.16 mg/dL (0.5-1.4) 07/30/22 14:04 Estim Creat Clear Calc 88.1 07/30/22 14:04 Estimated GFR 50 07/30/22 14:04 Random Glucose 283 mg/dL (60-115) H 07/30/22 14:04 Calcium 9.4 mg/dL (8.4-10.2) D 07/30/22 14:04 Magnesium 2.0 mg/dL (1.6-2.6) 07/30/22 14:04 Total Bilirubin 0.6 mg/dL (0.0-1.0) 07/30/22 14:04 Direct Bilirubin 0.2 mg/dL (0.0-0.5) 07/30/22 14:04 AST 52 U/L (5-31) H 07/30/22 14:04 ALT 88 U/L (0-31) H 07/30/22 14:04 Alkaline Phosphatase 81 U/L (39-117) 07/30/22 14:04 Total Protein 7.3 g/dL (6.5-8.0) 07/30/22 14:04 Albumin 3.7 g/dL (3.5-5.0) 07/30/22 14:04 Lipase 16 U/L (8-78) 07/30/22 14:04 Impressions Abdomen/Pelvis CT 07/30/22 18:53 IMPRESSION: Acute appendicitis with extensive inflammatory changes in the right lower quadrant. Small periappendiceal air pockets questionable for contained perforation versus small abscesses. No evidence of free air. Constipation. Probable posttraumatic changes to the spleen. Enlarged fatty liver. Findings were communicated to Tana EVANS by telephone on 07/30/2022 at 1951 hours Fleischner guidelines were followed. Assessment and Plan (1) Acute appendicitis: Status: Acute She describes symptoms for about a week now. I have reviewed her CT scan and there is significant inflammatory changes in the area of the appendix, with phlegmonous characteristics. There is no fecalith seen. In view of this phlegmonous appearance, possible small abscesses, and duration of illness, I explained to her that we may manage this with IV abx and bowel rest for now. She does not appear toxic, and is afebrile, with normal WBC. Her HR is slightly elevated but she has a hx of atrial fibrillation. She says she had been managed for CHF as well. Her PCP is in [place]. We will hold her Eliquis in case she wll need surgery. She understands that if she clinically worsens, likely open appendectomy may be necessary. She is comfortable with the plan. I have consulted the Hospitalist service for her multiple medical problems. Time Spent With Patient Time: Total time managing care of this patient today ____ minutes. Quality Stroke Does the patient have a stroke diagnosis?: No VTE Prior VTE?: No VTE Risk Level:: Medical - moderate - high VTE Device Contraindication: N/A - Device Ordered VTE Drug Contraindication: N/A - Med Ordered Procedures Date of Service Date of Service: 08/02/22
[2022-07-30 21:22] VITALS: BP 130/83; PULSE 77; RESP 16; TEMP 36.9
[2022-07-30] MEDS: Lactated Ringers 1,000 ML 100 ML IVCONT (21:29)
[2022-07-30 21:43] LABS: Appearance Urine Clear; Color Urine Yellow; Glucose Urine UA Negative (Negative); Leukocyte Esterase Urine Negative (Negative); Nitrite Urine Negative (Negative); Specific Gravity - Urine >= 1.030 (1.005-1.025); Urine Blood Negative (Negative); Urine Ketones Negative (Negative); Urine Protein Negative (Neg-Trace)
--- NOTE | 2022-07-30 21:49 | PC.NURSE ---
patient blood cultures were drawn patient tolerated antibiotics with no issues patient will continue to be monitored for safety
[2022-07-30 21:56] LABS: Lactic Acid 1.6 mmol/L (0.5-2.0)
--- NOTE | 2022-07-30 22:03 | MHC.CM.PN ---
IMM 07/30. A&Ox4. Name choice is [place] and preferred pronouns are she, her. Pt lives in [facility] sober house in [place]. Sober x6 months. No MAT. HX heroin/Meth. Did have 7 years sober in past. Pt has very diseased dentation. Pending dental surgery in future. Uses a rollator. Has [facility] for twice daily medication administration.Has etiquette coach and therapist from [facility] . HCP is sister Dee ([phone]). Moderna x2 /booster x2. D/C plan: home with existing services. Request for [facility] to follow for discharge [facility]. Pt will arrange transport. CM following for any discharge planning.
--- NOTE | 2022-07-30 22:43 | PC.NURSE ---
patient report was given to the receiving nurse Hyacinth
[2022-07-30 22:45] VITALS: BP 117/70; PULSE 95; RESP 20; TEMP 37.1; O2SAT 95
[2022-07-30 22:56] VITALS: BMI 39.7
[2022-07-30] MEDS: Morphine Sulfate 4 MG/ML CARTRIDGE 3 MG IVPUSH (23:16)
[2022-07-30] MEDS: 0.9 % Sodium Chloride Flush 3 ML SYRINGE IVFLUSH (23:16)
[2022-07-31] VITALS (12 sets, daily range): BP systolic 116–145; BP diastolic 58–86; PULSE 94–100; RESP 14–18; TEMP 36.1–37.3; O2SAT 92–98
[2022-07-31] MEDS: Morphine Sulfate 4 MG/ML CARTRIDGE 3 MG IVPUSH ×2 (02:16→05:35)
[2022-07-31] MEDS: Piperacillin Sodium/Tazobactam 3.375 GM in 0.9 % Sodium Chloride 50 ML IV ×4 (02:16→20:36)
[2022-07-31] MEDS: Lactated Ringers 1,000 ML 100 ML IVCONT ×2 (05:35→16:57)
[2022-07-31 06:19] LABS: Anion Gap 13 (12-20); Blood Urea Nitrogen 24 mg/dL (9-16); Calcium 8.8 mg/dL (8.4-10.2); Carbon Dioxide 24 mmol/L (22-29); Chloride 105 mmol/L (96-108); Creatinine Clr Calc Pharmacy 116.7; Estimated Glomerular Filt Rate > 60; Glucose Random 220 mg/dL (60-115); Potassium 3.8 mmol/L (3.3-5.1); Sodium 138 mmol/L (135-145)
[2022-07-31 06:32] LABS: Hematocrit 39.9 % (42.0-52.0); Mean Corpuscular HGB Conc 32.6 g/dl (31.0-36.0); Mean Corpuscular Hemoglobin 32.2 pg (27.0-33.0); Mean Corpuscular Volume 98.8 fL (80.0-98.0); Mean Platelet Volume 11.3 fL (9.4-12.4); Platelet Count 231 X10*3/uL (160-400); Red Blood Count 4.04 X10*6/uL (4.60-5.80); Red Cell Distribution Width 13.3 % (11.0-16.0); White Blood Count 10.7 X10*3/uL (4.8-10.8)
[2022-07-31] MEDS: lisinopriL 20 MG TABLET PO (07:35)
--- NOTE | 2022-07-31 08:01 | PM.PNGS ---
Subjective Subjective Date of Service: 08/02/22 Interval history: says she still has pain no N/V no fever Physical Exam Vital Signs: Vital Signs: Last Vital Signs Temp 97.4 F 07/31/22 07:06 Pulse 100 07/31/22 07:06 Resp 18 07/31/22 07:06 BP 116/58 L 07/31/22 07:06 Pulse Ox 98 07/31/22 07:06 O2 Del Method Room Air 07/31/22 07:06 BMI result Body Mass Index 39.7 Const: General: comfortable and no acute distress Resp: Effort & Inspection: normal respiratory effort Cardio: Rhythm: regular rhythm GI: Other: soft, tender mostly on lower abd, umbilical areas Objective Data Active Medications Heparin Sodium (Porcine) (Heparin Sodium,Porcine 5,000 Unit/Ml Vial) 5,000 unit SUBCUT Q8H [facility] Lactated Ringer's (Lr) 1,000 mls @ 100 mls/hr IVCONT .Q10H [facility] Last Admin: 07/31/22 05:35 Dose: 100 mls/hr Documented By: KWAME Piperacillin Sod/Tazobactam (Sod 3.375 gm/ Sodium Chloride) 50 mls @ 100 mls/hr IV Q6H [facility] Last Admin: 07/31/22 07:34 Dose: 100 mls/hr Documented By: MICHAEL Lisinopril (Lisinopril 20 Mg Tablet) 20 mg PO DAILY [facility]; Protocol Last Admin: 07/31/22 07:35 Dose: 20 mg Documented By: MICHAEL Morphine Sulfate (Morphine Sulfate 4 Mg/Ml Cartridge) 3 mg IVPUSH Q3H PRN; Protocol PRN Reason: Pain, Severe (Pain Scale 7-10) Last Admin: 07/31/22 05:35 Dose: 3 mg Documented By: KWAME Ondansetron HCl (Ondansetron Hcl 4 Mg/2 Ml Vial) 4 mg IVPUSH Q6H PRN PRN Reason: nausea Last Admin: 07/30/22 23:16 Dose: 4 mg Documented By: KWAME Pharmacy Consult (Consult Rx Perform Med Rec) 1 each MISCELLANE ONCE PRN PRN Reason: Consult order Sodium Chloride (0.9 % Sodium Chloride Flush 3 Ml Syringe) 3 ml IVFLUSH QSHIFT [facility] Last Admin: 07/31/22 06:54 Dose: Not Given Documented By: MICHAEL Non-Admin Reason: IV Running Sodium Chloride (0.9 % Sodium Chloride Flush 3 Ml Syringe) 3 ml IVFLUSH QSHIFT [facility] Last Admin: 07/31/22 06:54 Dose: Not Given Documented By: MICHAEL Non-Admin Reason: IV Running Labs 07/31/22 05:26 07/31/22 05:26 Labs: Laboratory Results - last 24 hr 07/30/22 07/30/22 07/30/22 14:04 14:04 14:04 MCV 99.8 H MCH 32.4 MCHC 32.5 RDW 13.2 Plt Count 235 MPV 11.1 Immature Gran % (Auto) 0.4 Neut % (Auto) 62.4 Lymph % (Auto) 25.0 [place] % (Auto) 9.5 Eos % (Auto) 2.1 Baso % (Auto) 0.6 Lymph # (Auto) 2.3 [place] # (Auto) 0.9 Eos # (Auto) 0.2 Baso # (Auto) 0.1 Abs Immat Gran (auto) 0.04 H Absolute Neuts (auto) 5.8 Absolute Nucleated RBC 0.000 Nucleated RBC % (auto) 0.0 PT 12.4 INR 1.1 Anion Gap 14 Estim Creat Clear Calc 88.1 Estimated GFR 50 Random Glucose 283 H Lactic Acid Calcium 9.4 D Magnesium 2.0 Total Bilirubin 0.6 Direct Bilirubin 0.2 AST 52 H ALT 88 H Alkaline Phosphatase 81 Total Protein 7.3 Albumin 3.7 Lipase 16 Urine Color Urine Appearance Urine pH Ur Specific [place] Urine Protein Urine Glucose (UA) Urine Ketones Urine Blood Urine Nitrite Ur Leukocyte Esterase 07/30/22 07/30/22 07/31/22 21:34 21:34 05:26 MCV 98.8 H MCH 32.2 MCHC 32.6 RDW 13.3 Plt Count 231 MPV 11.3 Immature Gran % (Auto) Neut % (Auto) Lymph % (Auto) [place] % (Auto) Eos % (Auto) Baso % (Auto) Lymph # (Auto) [place] # (Auto) Eos # (Auto) Baso # (Auto) Abs Immat Gran (auto) Absolute Neuts (auto) Absolute Nucleated RBC 0.000 Nucleated RBC % (auto) 0.0 PT INR Anion Gap Estim Creat Clear Calc Estimated GFR Random Glucose Lactic Acid 1.6 Calcium Magnesium Total Bilirubin Direct Bilirubin AST ALT Alkaline Phosphatase Total Protein Albumin Lipase Urine Color Yellow Urine Appearance Clear Urine pH 6.0 Ur Specific [place] >= 1.030 H Urine Protein Negative Urine Glucose (UA) Negative Urine Ketones Negative Urine Blood Negative Urine Nitrite Negative Ur Leukocyte Esterase Negative 07/31/22 05:26 MCV MCH MCHC RDW Plt Count MPV Immature Gran % (Auto) Neut % (Auto) Lymph % (Auto) [place] % (Auto) Eos % (Auto) Baso % (Auto) Lymph # (Auto) [place] # (Auto) Eos # (Auto) Baso # (Auto) Abs Immat Gran (auto) Absolute Neuts (auto) Absolute Nucleated RBC Nucleated RBC % (auto) PT INR Anion Gap 13 Estim Creat Clear Calc 116.7 Estimated GFR > 60 Random Glucose 220 H Lactic Acid Calcium 8.8 D Magnesium Total Bilirubin Direct Bilirubin AST ALT Alkaline Phosphatase Total Protein Albumin Lipase Urine Color Urine Appearance Urine pH Ur Specific [place] Urine Protein Urine Glucose (UA) Urine Ketones Urine Blood Urine Nitrite Ur Leukocyte Esterase Procedures Date of Service Date of Service: 08/02/22 Progress Note: A&P Assessment and plan (1) Acute appendicitis: Status: Acute Assessment and Plan: phlegmonous appearing appendix, contained perforation slasher tender, but no fever WBC normal she wants pain meds increased - she has a hx of meth use, currently in a drug rehab program will review CT scan with radiologist not septic looking hemodynamically stable IV Zosyn will monitor closely on Eliquis - she last took this Friday morning Time Spent With Patient Time: Total time managing care of this patient today ____ minutes. Quality Stroke Does the patient have a stroke diagnosis?: No VTE Prior VTE?: No VTE Risk Level:: Medical - moderate - high VTE Device Contraindication: N/A - Device Ordered VTE Drug Contraindication: N/A - Med Ordered
[2022-07-31] MEDS: ondansetron HCL 4 MG/2 ML VIAL IVPUSH (08:33)
[2022-07-31] MEDS: HYDROmorphone HCl 0.5 MG/0.5 ML SYRINGE IVPUSH ×3 (08:33→20:36)
[2022-07-31] MEDS: Heparin Sodium,Porcine 5,000 UNIT/ML VIAL 5000 UNIT SUBCUT ×2 (08:33→16:57)
--- NOTE | 2022-07-31 08:59 | HO.PM.IMPN ---
Subjective Subjective Date of Service: 07/31/22 Review of Systems Follow up consultation acute abdomen still with pain, but controlled Physical Exam Vital Signs: Vital Signs: Last Vital Signs Temp 97.4 F 07/31/22 07:06 Pulse 100 07/31/22 07:06 Resp 18 07/31/22 07:06 BP 116/58 L 07/31/22 07:06 Pulse Ox 98 07/31/22 07:06 O2 Del Method Room Air 07/31/22 07:06 BMI result Body Mass Index 39.7 Appearing in no acute distress lung sounds are clear to auscultation heart regular rate rhythm, clear S1, S2 positive bowel sounds, abdomen is soft, nontender neuro patient is alert x3, no focal deficits Objective Data Active Medications Heparin Sodium (Porcine) (Heparin Sodium,Porcine 5,000 Unit/Ml Vial) 5,000 unit SUBCUT Q8H [facility] Last Admin: 07/31/22 08:33 Dose: 5,000 unit Documented By: MICHAEL Hydromorphone HCl (Hydromorphone Hcl 0.5 Mg/0.5 Ml Syringe) 0.5 mg IVPUSH Q3H PRN; Protocol PRN Reason: Pain, Severe (Pain Scale 7-10) Last Admin: 07/31/22 08:33 Dose: 0.5 mg Documented By: MICHAEL Lactated Ringer's (Lr) 1,000 mls @ 100 mls/hr IVCONT .Q10H [facility] Last Admin: 07/31/22 05:35 Dose: 100 mls/hr Documented By: JEANQC Piperacillin Sod/Tazobactam (Sod 3.375 gm/ Sodium Chloride) 50 mls @ 100 mls/hr IV Q6H [facility] Last Infusion: 07/31/22 08:13 Dose: 0 mls/hr Documented By: MICHAEL Ondansetron HCl (Ondansetron Hcl 4 Mg/2 Ml Vial) 4 mg IVPUSH Q6H PRN PRN Reason: nausea Last Admin: 07/31/22 08:33 Dose: 4 mg Documented By: MICHAEL Pharmacy Consult (Consult Rx Perform Med Rec) 1 each MISCELLANE ONCE PRN PRN Reason: Consult order Sodium Chloride (0.9 % Sodium Chloride Flush 3 Ml Syringe) 3 ml IVFLUSH QSHIFT [facility] Last Admin: 07/31/22 06:54 Dose: Not Given Documented By: MICHAEL Non-Admin Reason: IV Running Sodium Chloride (0.9 % Sodium Chloride Flush 3 Ml Syringe) 3 ml IVFLUSH QSHIFT [facility] Last Admin: 07/31/22 06:54 Dose: Not Given Documented By: MICHAEL Non-Admin Reason: IV Running Labs 07/31/22 05:26 07/31/22 05:26 Labs: Laboratory Results - last 24 hr 07/30/22 07/30/22 07/30/22 14:04 14:04 14:04 MCV 99.8 H MCH 32.4 MCHC 32.5 RDW 13.2 Plt Count 235 MPV 11.1 Immature Gran % (Auto) 0.4 Neut % (Auto) 62.4 Lymph % (Auto) 25.0 [place] % (Auto) 9.5 Eos % (Auto) 2.1 Baso % (Auto) 0.6 Lymph # (Auto) 2.3 [place] # (Auto) 0.9 Eos # (Auto) 0.2 Baso # (Auto) 0.1 Abs Immat Gran (auto) 0.04 H Absolute Neuts (auto) 5.8 Absolute Nucleated RBC 0.000 Nucleated RBC % (auto) 0.0 PT 12.4 INR 1.1 Anion Gap 14 Estim Creat Clear Calc 88.1 Estimated GFR 50 Random Glucose 283 H Lactic Acid Calcium 9.4 D Magnesium 2.0 Total Bilirubin 0.6 Direct Bilirubin 0.2 AST 52 H ALT 88 H Alkaline Phosphatase 81 Total Protein 7.3 Albumin 3.7 Lipase 16 Urine Color Urine Appearance Urine pH Ur Specific [place] Urine Protein Urine Glucose (UA) Urine Ketones Urine Blood Urine Nitrite Ur Leukocyte Esterase 07/30/22 07/30/22 07/31/22 21:34 21:34 05:26 MCV 98.8 H MCH 32.2 MCHC 32.6 RDW 13.3 Plt Count 231 MPV 11.3 Immature Gran % (Auto) Neut % (Auto) Lymph % (Auto) [place] % (Auto) Eos % (Auto) Baso % (Auto) Lymph # (Auto) [place] # (Auto) Eos # (Auto) Baso # (Auto) Abs Immat Gran (auto) Absolute Neuts (auto) Absolute Nucleated RBC 0.000 Nucleated RBC % (auto) 0.0 PT INR Anion Gap Estim Creat Clear Calc Estimated GFR Random Glucose Lactic Acid 1.6 Calcium Magnesium Total Bilirubin Direct Bilirubin AST ALT Alkaline Phosphatase Total Protein Albumin Lipase Urine Color Yellow Urine Appearance Clear Urine pH 6.0 Ur Specific [place] >= 1.030 H Urine Protein Negative Urine Glucose (UA) Negative Urine Ketones Negative Urine Blood Negative Urine Nitrite Negative Ur Leukocyte Esterase Negative 07/31/22 05:26 MCV MCH MCHC RDW Plt Count MPV Immature Gran % (Auto) Neut % (Auto) Lymph % (Auto) [place] % (Auto) Eos % (Auto) Baso % (Auto) Lymph # (Auto) [place] # (Auto) Eos # (Auto) Baso # (Auto) Abs Immat Gran (auto) Absolute Neuts (auto) Absolute Nucleated RBC Nucleated RBC % (auto) PT INR Anion Gap 13 Estim Creat Clear Calc 116.7 Estimated GFR > 60 Random Glucose 220 H Lactic Acid Calcium 8.8 D Magnesium Total Bilirubin Direct Bilirubin AST ALT Alkaline Phosphatase Total Protein Albumin Lipase Urine Color Urine Appearance Urine pH Ur Specific [place] Urine Protein Urine Glucose (UA) Urine Ketones Urine Blood Urine Nitrite Ur Leukocyte Esterase Assessment and Plan (1) CHF (congestive heart failure): Status: Acute Plan 47 year old admitted by general surgery Appendicitis management as per surgical team pain management continue zosyn Afib in NSR Hold Eliquis for surgical procedure HTN Hold lisinopril for soft BP Mental health continue home medications obesity. BMI 39.7 Discussed importance of weight management as this may be contributing to worsening of other comorbidities DVT prophylaxis with SCD boots Attending Dr. Barney Time Spent With Patient Time: Total time managing care of this patient today ____ minutes. Quality Stroke Does the patient have a stroke diagnosis?: No VTE Prior VTE?: No VTE Risk Level:: Medical - moderate - high VTE Device Contraindication: N/A - Device Ordered VTE Drug Contraindication: N/A - Med Ordered
--- NOTE | 2022-07-31 09:49 | PM.EVENT ---
Event Note Date of Service: 07/31/22 Event Note: Seen and re-examined She does not feel that she is getting any significant pain relief Abdomen soft but tender I reviewed her CAT scan with the radiologist - likely contained perforation and a significant inflammatory changes The patient says that she cannot continue with this management She wants to undergo surgical treatment today Will therefore proceed laparoscopic appendectomy, possible open via laparotomy and possible resection of part of the colon I had a long discussion with her about the technique of this procedure. I reviewed the risks including but not limited to bleeding, infections, injury to other organs including bowel and urinary tract, staple line leak, blood clots, pneumonia, respiratory failure, OK She has multiple medical problems and is aware of her relatively higher perioperative risks She says she wants to proceed Will put the add on schedule today Time Spent With Patient Time: Total time managing care of this patient today ____ minutes.
--- NOTE | 2022-07-31 12:43 | HO.ANESPROP2 ---
HPI - Anesthesia Eval Consult details Narrative: for lap. appendectomy PMFSH Active Problems Active Problems: All Active Problems (Updated 07/30/22 @ 21:29 by Jakob Schultz MD) Status post laparoscopic procedure (Acute) Status post laparoscopic cholecystectomy (Acute) CHF (congestive heart failure) (Acute) S/P ablation of atrial fibrillation (Acute) Atrial fibrillation (Acute) Hypertension (Acute) Drug abuse in remission (Acute) Obesity (Acute) Depression (Acute) Acute appendicitis (Acute) Past Medical History Medical History (Updated 07/30/22 @ 21:29 by Jakob Schultz MD) Atrial fibrillation CHF (congestive heart failure) Depression Drug abuse in remission Hypertension Obesity Family History Family history of problems with anesthesia: No Surgical History Surgical History (Updated 07/31/22 @ 10:15 by Jakob Schultz MD) S/P ablation of atrial fibrillation Status post laparoscopic cholecystectomy Status post laparoscopic procedure History of Problems with Anesthesia: No Social History Social History Household Members: Other Housing: Other Housing Other:: fdc Do you presently have visiting nurse or other home services: Yes Alcohol intake: never Patient Tobacco Use Status: Never used Tobacco Smoked in Last 30 Days: No Use of substances other than those prescribed or required for medical reasons: No Substance Use Type: Methamphetamine Substance Use Type Other:: crystal meth 6 months drug free Substance Use Frequency: Monthly Substance Use Frequency Other:: clean for 6 months Last Used Substance: Weeks (ago) Last Used Substance Other:: crystal meth Currently Displaying Signs/Symptoms of Drug Intoxication Withdrawal: No Any prior treatment program specific to substance use: No Have you been hit, kicked, punched, or otherwise hurt by someone within the past year? If so, by whom?: No Do you feel safe in your current relationship?: No Current Relationship Is there a partner from a previous relationship who is making you feel unsafe now?: No Are you made to feel afraid or neglected: No Are you DNR?: No Advance Directives: No Advance Directives Information Provided: Yes Do you have thoughts of harming others: None Do you have a plan to hurt others: No Plan Recently lost weight without trying: No How much weight loss: Not applicable Eating poorly because of decreased appetite: No Nutrition screen score: 0 Nutrition Risks: No Nutritional Risk Poor oral hygiene: No service: No Current occupational status: unemployed Meds Allergies Allergy/AdvReac Type Severity Reaction Status Date / Time cephalexin Allergy Mild Hives Verified 03/18/22 13:29 Active Medications: Current Medications Heparin Sodium (Porcine) (Heparin Sodium,Porcine 5,000 Unit/Ml Vial) 5,000 unit SUBCUT Q8H [facility] Last Admin: 07/31/22 08:33 Dose: 5,000 unit Hydromorphone HCl (Hydromorphone Hcl 0.5 Mg/0.5 Ml Syringe) 0.5 mg IVPUSH Q3H PRN; Protocol PRN Reason: Pain, Severe (Pain Scale 7-10) Last Admin: 07/31/22 08:33 Dose: 0.5 mg Lactated Ringer's (Lr) 1,000 mls @ 100 mls/hr IVCONT .Q10H [facility] Last Admin: 07/31/22 05:35 Dose: 100 mls/hr Piperacillin Sod/Tazobactam (Sod 3.375 gm/ Sodium Chloride) 50 mls @ 100 mls/hr IV Q6H [facility] Last Infusion: 07/31/22 08:13 Dose: Infused Ondansetron HCl (Ondansetron Hcl 4 Mg/2 Ml Vial) 4 mg IVPUSH Q6H PRN PRN Reason: nausea Last Admin: 07/31/22 08:33 Dose: 4 mg Pharmacy Consult (Consult Rx Perform Med Rec) 1 each MISCELLANE ONCE PRN PRN Reason: Consult order Sodium Chloride (0.9 % Sodium Chloride Flush 3 Ml Syringe) 3 ml IVFLUSH [facility] Last Admin: 07/31/22 06:54 Dose: Not Given Sodium Chloride (0.9 % Sodium Chloride Flush 3 Ml Syringe) 3 ml IVFLUSH [facility] Last Admin: 07/31/22 06:54 Dose: Not Given Home Medications Medication Instructions Recorded Confirmed Last Taken Type apixaban 5 mg tablet (Eliquis) 5 mg PO BID 07/30/22 07/30/22 07/30/22 History atomoxetine 60 mg capsule 60 mg PO DAILY 07/30/22 07/30/22 07/30/22 History (Strattera) buspirone 5 mg tablet 5 mg PO TID 07/30/22 07/30/22 07/30/22 History cyclobenzaprine 10 mg tablet 10 mg PO BID PRN muscle spasm 07/30/22 07/30/22 07/29/22 History docusate sodium 100 mg capsule 100 mg PO BID 07/30/22 07/30/22 07/30/22 History escitalopram oxalate 10 mg tablet 15 mg PO DAILY 07/30/22 07/30/22 07/30/22 History estradiol 0.1 mg/24 hr weekly 3 patch transdermal Q72H 07/30/22 07/30/22 07/28/22 History transdermal patch finasteride 5 mg tablet 5 mg PO DAILY 07/30/22 07/30/22 07/30/22 History lisinopril 20 mg tablet 20 mg PO DAILY 07/30/22 07/30/22 07/30/22 History mirtazapine 30 mg tablet 30 mg PO BEDTIME 07/30/22 07/30/22 07/29/22 History sennosides 8.6 mg tablet (senna) 8.6 mg PO BID 07/30/22 07/30/22 07/30/22 History topiramate 50 mg tablet 50 mg PO BEDTIME 07/30/22 07/30/22 07/29/22 History Exam Exam Date and Time: July 31, 2022 1243 Height,Weight and Vital Signs: Height 5 ft 11 in Weight 129.1 kg Last Vital Signs Temp 98.5 F 07/31/22 11:36 Pulse 96 07/31/22 11:36 Resp 18 07/31/22 11:36 BP 121/74 07/31/22 11:36 Pulse Ox 95 07/31/22 11:36 O2 Del Method Room Air 07/31/22 11:36 Pertinent Lab Results Pertinent Lab Results: Laboratory Tests 07/30/22 07/30/22 07/30/22 14:04 14:04 14:04 WBC 9.2 RBC 4.10 L Hgb 13.3 Hct 40.9 MCV 99.8 H MCH 32.4 MCHC 32.5 RDW 13.2 Plt Count 235 MPV 11.1 Immature Gran % (Auto) 0.4 Neut % (Auto) 62.4 Lymph % (Auto) 25.0 [place] % (Auto) 9.5 Eos % (Auto) 2.1 Baso % (Auto) 0.6 Lymph # (Auto) 2.3 [place] # (Auto) 0.9 Eos # (Auto) 0.2 Baso # (Auto) 0.1 Abs Immat Gran (auto) 0.04 H Absolute Neuts (auto) 5.8 Absolute Nucleated RBC 0.000 Nucleated RBC % (auto) 0.0 PT 12.4 INR 1.1 Sodium 135 Potassium 4.5 Chloride 102 Carbon Dioxide 24 Anion Gap 14 BUN 27 H Creatinine 1.16 Estim Creat Clear Calc 88.1 Estimated GFR 50 Random Glucose 283 H Lactic Acid Calcium 9.4 D Magnesium 2.0 Total Bilirubin 0.6 Direct Bilirubin 0.2 AST 52 H ALT 88 H Alkaline Phosphatase 81 Total Protein 7.3 Albumin 3.7 Lipase 16 Urine Color Urine Appearance Urine pH Ur Specific [place] Urine Protein Urine Glucose (UA) Urine Ketones Urine Blood Urine Nitrite Ur Leukocyte Esterase 07/30/22 07/30/22 07/31/22 21:34 21:34 05:26 WBC 10.7 RBC 4.04 L Hgb 13.0 L Hct 39.9 L MCV 98.8 H MCH 32.2 MCHC 32.6 RDW 13.3 Plt Count 231 MPV 11.3 Immature Gran % (Auto) Neut % (Auto) Lymph % (Auto) [place] % (Auto) Eos % (Auto) Baso % (Auto) Lymph # (Auto) [place] # (Auto) Eos # (Auto) Baso # (Auto) Abs Immat Gran (auto) Absolute Neuts (auto) Absolute Nucleated RBC 0.000 Nucleated RBC % (auto) 0.0 PT INR Sodium Potassium Chloride Carbon Dioxide Anion Gap BUN Creatinine Estim Creat Clear Calc Estimated GFR Random Glucose Lactic Acid 1.6 Calcium Magnesium Total Bilirubin Direct Bilirubin AST ALT Alkaline Phosphatase Total Protein Albumin Lipase Urine Color Yellow Urine Appearance Clear Urine pH 6.0 Ur Specific [place] >= 1.030 H Urine Protein Negative Urine Glucose (UA) Negative Urine Ketones Negative Urine Blood Negative Urine Nitrite Negative Ur Leukocyte Esterase Negative 07/31/22 05:26 WBC RBC Hgb Hct MCV MCH MCHC RDW Plt Count MPV Immature Gran % (Auto) Neut % (Auto) Lymph % (Auto) [place] % (Auto) Eos % (Auto) Baso % (Auto) Lymph # (Auto) [place] # (Auto) Eos # (Auto) Baso # (Auto) Abs Immat Gran (auto) Absolute Neuts (auto) Absolute Nucleated RBC Nucleated RBC % (auto) PT INR Sodium 138 Potassium 3.8 Chloride 105 Carbon Dioxide 24 Anion Gap 13 BUN 24 H Creatinine 1.06 Estim Creat Clear Calc 116.7 Estimated GFR > 60 Random Glucose 220 H Lactic Acid Calcium 8.8 D Magnesium Total Bilirubin Direct Bilirubin AST ALT Alkaline Phosphatase Total Protein Albumin Lipase Urine Color Urine Appearance Urine pH Ur Specific [place] Urine Protein Urine Glucose (UA) Urine Ketones Urine Blood Urine Nitrite Ur Leukocyte Esterase Airway Mallampati Class: I TM Dist: >3cm Neck ROM: Full Loose/Missing/Broken Teeth: Yes, No, Upper and Lower Heart: Echo 05/16/22. Dilated CMOP, EF 44%. RV normal. Valves OK. Lungs: ok Other: most teeth missing; remaining are very decayed and loose. Spoke at length w patient about the risks. Assessment and Plan Assessment Anesthesia Assessment: Anesthesia Plan Discussed and Chart Reviewed Final Anesthetic Review Family History of Problems with Anesthesia: No History of Problems with Anesthesia: No NPO: Yes ASA Class: IV Final Preanesthetic Review: No Changes in Pt Med Stat, Meds/Allgs Chart Reviewed, Consent Obtained/Reviewed and Anes Risks/Benef Reviewed Patient Risk: High Procedure Risk: Intermediate Anesthetic Plan Anesthetic Plan: GA and Agree w/ Assess. and Plan Disposition: Standard PACU
--- NOTE | 2022-07-31 15:09 | MHC.CM.PN ---
per rounds pt is a surgery case no anticapated dc at this time
--- NOTE | 2022-07-31 15:33 | W.PM.OPN ---
Operative Note Operative Note Date of Service: 07/31/22 Narrative: Preop diagnosis: Acute appendicitis Postop diagnosis: Acute appendicitis, with contained perforation, periappendiceal abscesses, severe induration Procedure: attempted laparoscopic appendectomy, converted to open appendectomy via a short midline laparotomy incision Surgeon: Jakob Schultz MD The patient is a 47 year female, who admitted last night because acute appendicitis. She however had symptoms for about a week. I had reviewed her CAT scan with the radiologist and this showed significant inflammatory changes surrounding the area of the appendix with what appeared to small abscesses, contained perforation. There was no obvious fecalith. Because of the duration of her symptoms along with contained perforation and small abscess, I had considered trying IV antibiotic therapy as she did not appear septic, and had no leukocytosis. Her main complaint was pain on right lower quadrant. However, this morning, she has stated that she did not feel that her pain has been improving since we started IV antibiotics last night. She remained tender as well. She stated that in view of her persistent pain, she would rather go ahead with appendectomy. I therefore decided to proceed with appendectomy. She understood the planned procedure as well as the risks, benefits, and alternatives She was brought to the operating room. He was placed supine under general anesthesia via endotracheal tube. The leftt arm was tucked on the side. a Mai catheter was inserted. The abdomen was prepped and draped in the usual sterile fashion. A surgical time-out was done. The patient was receiving scheduled IV antibiotics I made a short incision on the supraumbilical area using blade 15. This carried down through the full-thickness of the skin and subcutaneous fat down to the fascia with a wash incised. The peritoneum was entered. This incision a Addi port was introduced. Pneumoperitoneum was introduced to a pressure of 15 mm hg. Laparoscopic visualization using a 10 mm flat scope, I proceeded to insert a 5/12 mm port in the left lower quadrant and a 5 mm oat insufflate margin. We had to lift her large pannus to allow as insertion of the pubic port. The patient was markedly obese with a large pannus with and thick subcutaneous fat. The patient was placed in the head-down and [id number] position. With laparoscopic visualization, I proceeded to then look for the appendix. There was note of a lot of indurated and supportive tissue on the right lower quadrant. We gently this from the anterior abdominal wall. We had to do a lot of gentle blunt dissection with the tip of the irrigation your. Eventually, as able to visualize the tip of the appendix. This was indurated and markedly inflamed. I continued to proceeded to gently dissect this off of the rest of the surrounding bowel loops and mesenteric fat and epiploic fat. With a prolonged and careful dissection using blunt instruments, I was able to visualize more of the appendix. There was note of a lot of indurated fatty tissue surrounding this with severe induration and abscess is mesentery of the appendix itself as well as the gutter laterally. We had to do a lot of careful dissection to separate the appendix from the right gutter. This allowed us to see more the appendix and the was more induration and abscess fluid. There was no obvious fecal spillage. I was able to see a good segment of the appendix and I thinned out the mesentery attached to this. I used the LigaSure to achieve this. However, I could not visualize the rest of proximal appendix in view of the very dense induration in the area with inflammation. I felt that it would be unsafe to continue to proceed laparoscopically so I decided to convert to an open procedure at this point I removed all the ports. I made a short incision on the midline. I applied the Bookwalter retractors. Again, visualization and exposure was challenging in view of the patient's morbid obesity and in thick subcutaneous fat . I had to apply Bookwalter retractors with lap pads to retract all the bowel loops away from the lower right lower quadrant. I was able to therefore isolate the visible appendix. I applied a Salo to this and continued to trace this by gentle dissection proximally towards the base. I continued to thin out the surrounding markedly indurated fatty tissue with a right angle clamps until I was able to see the base. This appeared viable although inflamed. Even the cecum itself appeared inflamed although viable. I was able to clamp the base of the appendix with a right angle clamp. I divided the appendix above this using Metzenbaum scissors. I transected the rest of the attached mesentery using the LigaSure and the appendix was sent as a specimen. I doubly ligated the base of the using Polysorb 2-0. I proceeded to copiously irrigate, and careful examination of the right lower quadrant was done. There was no evidence of any bowel injury or any bleeding I repeated copious irrigation. I positioned a [place] drain 7 on the right gutter surrounding the appendix. This was brought out through the suprapubic port site incision. This was secured to the skin with nylon 3-0 sutures. After final examination of the right lower quadrant revealed good hemostasis, I proceeded to then remove all lap pads and retractors I closed the fascia of the midline incision with a running Maxon 1 stitch. Skin closure was achieved on all incisions using skin kentrell. Iodoform packing was inserted in between the kentrell on the thick subcutaneous fat on the midline. I infiltrated all incisions with Marcaine 0.5% for postop analgesia. Dressings were applied. The procedure was completed. The patient tolerated the procedure well. There were no immediate complications. Initial and final counts of sponges and instruments were correct. Estimated blood loss was about 75 cc. The patient was extubated without difficulty and transferred to the recovery room with stable vital signs.
[2022-07-31] MEDS: 0.9 % Sodium Chloride Flush 3 ML SYRINGE IVFLUSH ×2 (16:57→20:36)
--- NOTE | 2022-07-31 16:59 | PM.EVENT ---
Event Note Date of Service: 07/31/22 Event Note: seen postop underwent open appendectomy earlier appendix very indurated, with surrounding small abscesses, likely contained perforation pain management tonight on clear liquids left message with her sister the phone hospitalist following continue IV Zosyn Time Spent With Patient Time: Total time managing care of this patient today ____ minutes.
[2022-07-31] MEDS: Acetaminophen 1,000 MG/100 ML PIGGYBACK 400 MG IV (19:27)
[2022-07-31] MEDS: Docusate Sodium 100 MG CAPSULE PO (20:36)
[2022-08-01] MEDS: HYDROmorphone HCl 0.5 MG/0.5 ML SYRINGE IVPUSH ×7 (00:29→21:20)
[2022-08-01] MEDS: Acetaminophen 1,000 MG/100 ML PIGGYBACK 400 MG IV ×4 (02:21→21:24)
[2022-08-01] MEDS: Heparin Sodium,Porcine 5,000 UNIT/ML VIAL 5000 UNIT SUBCUT ×3 (02:23→17:46)
[2022-08-01] MEDS: Piperacillin Sodium/Tazobactam 3.375 GM in 0.9 % Sodium Chloride 50 ML IV ×4 (02:36→21:57)
[2022-08-01] MEDS: Lactated Ringers 1,000 ML 100 ML IVCONT (03:29)
[2022-08-01 03:57] VITALS: BP 117/64; PULSE 105; RESP 17; TEMP 36.4; O2SAT 94
[2022-08-01 06:38] LABS: Hematocrit 38.6 % (42.0-52.0); Hemoglobin 12.5 g/dl (14.0-18.0); Mean Corpuscular HGB Conc 32.4 g/dl (31.0-36.0); Mean Corpuscular Hemoglobin 32.5 pg (27.0-33.0); Mean Corpuscular Volume 100.3 fL (80.0-98.0); Mean Platelet Volume 11.1 fL (9.4-12.4); Platelet Count 226 X10*3/uL (160-400); Red Blood Count 3.85 X10*6/uL (4.60-5.80); Red Cell Distribution Width 13.7 % (11.0-16.0); White Blood Count 8.2 X10*3/uL (4.8-10.8)
[2022-08-01 07:09] LABS: Anion Gap 11 (12-20); Blood Urea Nitrogen 18 mg/dL (9-16); Calcium 8.9 mg/dL (8.4-10.2); Carbon Dioxide 25 mmol/L (22-29); Chloride 107 mmol/L (96-108); Creatinine Clr Calc Pharmacy 147.2; Estimated Glomerular Filt Rate > 60; Glucose Random 194 mg/dL (60-115); Potassium 3.8 mmol/L (3.3-5.1); Sodium 139 mmol/L (135-145)
[2022-08-01] MEDS: 0.9 % Sodium Chloride Flush 3 ML SYRINGE IVFLUSH ×2 (07:09→21:23)
[2022-08-01 07:42] VITALS: BP 117/64; PULSE 103; RESP 18; TEMP 37.1; O2SAT 94
[2022-08-01] MEDS: Docusate Sodium 100 MG CAPSULE PO ×2 (08:17→21:29)
--- NOTE | 2022-08-01 08:18 | PM.PNGS ---
Subjective Subjective Date of Service: 08/01/22 Interval history: says she feels today still has pain but states this is different from yesterday no events reported overnight good urine output Physical Exam Vital Signs: Vital Signs: Last Vital Signs Temp 98.7 F 08/01/22 07:42 Pulse 103 H 08/01/22 07:42 Resp 18 08/01/22 07:42 BP 117/64 08/01/22 07:42 Pulse Ox 94 08/01/22 07:42 O2 Del Method Nasal Cannula 08/01/22 07:42 O2 Flow Rate 2.5 08/01/22 07:42 BMI result Body Mass Index 39.7 Const: General: no acute distress Resp: Effort & Inspection: normal respiratory effort Cardio: Rate: tachycardic Rhythm: regular rhythm GI: Other: dressings dry, been soft, [place] drain scanty dark blood : Other: Mai in place, good urine output Objective Data Active Medications Docusate Sodium (Docusate Sodium 100 Mg Capsule) 100 mg PO BID [facility] Last Admin: 08/01/22 08:17 Dose: 100 mg Documented By: ASHLEE Fentanyl (Fentanyl Citrate/Pf 100 Mcg/2 Ml Vial) 50 mcg IVPUSH Q5M PRN; Protocol PRN Reason: Pain, Severe (Pain Scale 7-10) Heparin Sodium (Porcine) (Heparin Sodium,Porcine 5,000 Unit/Ml Vial) 5,000 unit SUBCUT Q8H [facility] Last Admin: 08/01/22 02:23 Dose: 5,000 unit Documented By: KWAME Hydromorphone HCl (Hydromorphone Hcl 0.5 Mg/0.5 Ml Syringe) 0.5 mg IVPUSH Q3H PRN; Protocol PRN Reason: Pain, Severe (Pain Scale 7-10) Last Admin: 08/01/22 07:09 Dose: 0.5 mg Documented By: ASHLEE Hydromorphone HCl (Hydromorphone Hcl 0.5 Mg/0.5 Ml Syringe) 0.5 mg IVPUSH Q5M PRN; Protocol PRN Reason: Pain, Severe (Pain Scale 7-10) Last Admin: 07/31/22 16:15 Dose: 0.5 mg Documented By: SAL Lactated Ringer's (Lr) 1,000 mls @ 100 mls/hr IVCONT .Q10H [facility] Last Admin: 08/01/22 03:29 Dose: 100 mls/hr Documented By: KWAME Piperacillin Sod/Tazobactam (Sod 3.375 gm/ Sodium Chloride) 50 mls @ 100 mls/hr IV Q6H [facility] Last Infusion: 08/01/22 03:17 Dose: 0 mls/hr Documented By: KWAME Promethazine HCl 12.5 mg/ (Sodium Chloride) 50.5 mls @ 202 mls/hr IV ONCE PRN PRN Reason: Nausea and Vomiting Acetaminophen (Ofirmev) 1,000 mg in 100 mls @ 400 mls/hr IV Q6H [facility] Stop: 08/01/22 14:14 Last Admin: 08/01/22 08:16 Dose: 400 mls/hr Documented By: ASHELE Ondansetron HCl (Ondansetron Hcl 4 Mg/2 Ml Vial) 4 mg IVPUSH Q6H PRN PRN Reason: nausea Last Admin: 07/31/22 08:33 Dose: 4 mg Documented By: MICHAEL Ondansetron HCl (Ondansetron Hcl 4 Mg/2 Ml Vial) 4 mg IVPUSH ONCE PRN PRN Reason: Nausea and Vomiting Pharmacy Consult (Consult Rx Perform Med Rec) 1 each MISCELLANE ONCE PRN PRN Reason: Consult order Sodium Chloride (0.9 % Sodium Chloride Flush 3 Ml Syringe) 3 ml IVFLUSH QSAZFT [facility] Last Admin: 08/01/22 07:09 Dose: 3 ml Documented By: ASHLEE Sodium Chloride (0.9 % Sodium Chloride Flush 3 Ml Syringe) 3 ml IVFLUSH [facility] Last Admin: 07/31/22 20:41 Dose: Not Given Documented By: KWAME Non-Admin Reason: Duplicate Order Labs 08/01/22 05:27 08/01/22 05:27 Labs: Laboratory Results - last 24 hr 08/01/22 08/01/22 05:27 05:27 MCV 100.3 H MCH 32.5 MCHC 32.4 RDW 13.7 Plt Count 226 MPV 11.1 Absolute Nucleated RBC 0.000 Nucleated RBC % (auto) 0.0 Anion Gap 11 L Estim Creat Clear Calc 147.2 Estimated GFR > 60 Random Glucose 194 H Calcium 8.9 Microbiology Microbiology Results: Microbiology 07/30/22 21:34 Blood Culture - Preliminary Blood - Venous No growth after 24 hours. 07/30/22 21:34 Blood Culture - Preliminary Blood - Venous No growth after 24 hours. Procedures Date of Service Date of Service: 08/01/22 Progress Note: A&P Assessment and plan (1) Acute appendicitis: Status: Acute Assessment and Plan: status post open appendectomy via midline incision markedly indurated, inflamed appendix, phlegmonous, with small abscesses in suppuration continue pain management clear liquids for now and advance as tolerated later on [place] drain in place DC Mai continue IV antibiotics pain management out of bed hospitalist following Time Spent With Patient Time: Total time managing care of this patient today ____ minutes. Quality Stroke Does the patient have a stroke diagnosis?: No VTE Prior VTE?: No VTE Risk Level:: Medical - moderate - high VTE Device Contraindication: N/A - Device Ordered VTE Drug Contraindication: N/A - Med Ordered
--- NOTE | 2022-08-01 10:41 | PC.NURSE ---
D/C F/C, tolerated well. 40cc in bag.
[2022-08-01 11:48] VITALS: BP 121/59; PULSE 97; RESP 17; TEMP 36.8; O2SAT 95
[2022-08-01] MEDS: Lactated Ringers 1,000 ML 80 ML IVCONT ×2 (13:33→22:01)
--- NOTE | 2022-08-01 14:14 | HO.POSTANES ---
Post Anesthesia Evaluation Post Anesthesia Evaluation Date of Service: 08/01/22 Vital Signs: Vital Signs Temp Pulse Resp BP Pulse Ox O2 Del Method O2 Flow Rate 08/01/22 11:48 98.2 F 97 17 121/59 L 95 Nasal Cannula 2.0 08/01/22 07:42 98.7 F 103 H 18 117/64 94 Nasal Cannula 2.5 08/01/22 03:57 97.5 F 105 H 17 117/64 94 Nasal Cannula 2 Anesthesia: General Endotracheal-GETA Mental Status: Awake Pain Control: Satisfactory Nausea/Vomiting: None Hydration: Adequate Anesthesia-Related Issues: No Anes. Related Issues
--- NOTE | 2022-08-01 15:33 | P.PNIM_ITS ---
Subjective Subjective Date of Service: 08/01/22 Interval History: seen and examined this morning follow up for medical consultation s/p open appendectomy has some incisional tenderness denies shortness of breath, cough Review of Systems Review of Systems: Yes all other systems are reviewed and are negative Constitutional Constitutional: Denies chills and Denies fever(s) Cardiovascular Cardiovascular: Denies chest pain, Denies palpitations and Denies dyspnea Respiratory Respiratory: Denies cough and Denies dyspnea Endocrine Endocrine: Denies palpitations Physical Exam Vital Signs: Vital Signs: Last Vital Signs Temp 98.2 F 08/01/22 11:48 Pulse 97 08/01/22 11:48 Resp 17 08/01/22 11:48 BP 121/59 L 08/01/22 11:48 Pulse Ox 95 08/01/22 11:48 O2 Del Method Nasal Cannula 08/01/22 11:48 O2 Flow Rate 2.0 08/01/22 11:48 BMI result Body Mass Index 39.7 Const: General: cooperative, comfortable, alert and awake Nutritional Appearance: overweight Orientation/consciousness: patient oriented x3 HEENT: Other: poor dentition Resp: Other: diminished breath sounds Effort & Inspection: normal respiratory effort, able to speak in complete sentences, no respiratory distress and no use of accessory muscles Cardio: Rate: regular rate Heart sounds: S1 normal heart sound present and S2 normal heart sound present GI: Other: abdominal binder in place [place] drain with scant bloody output Neuro: Other: grossly nonfocal General: patient oriented x3 and moves all extremities Extrem: General: Yes no pedal edema Objective Data Active Medications Docusate Sodium (Docusate Sodium 100 Mg Capsule) 100 mg PO BID [facility] Last Admin: 08/01/22 08:17 Dose: 100 mg Documented By: ASHLEE Fentanyl (Fentanyl Citrate/Pf 100 Mcg/2 Ml Vial) 50 mcg IVPUSH Q5M PRN; Protocol PRN Reason: Pain, Severe (Pain Scale 7-10) Heparin Sodium (Porcine) (Heparin Sodium,Porcine 5,000 Unit/Ml Vial) 5,000 unit SUBCUT Q8H [facility] Last Admin: 08/01/22 10:20 Dose: 5,000 unit Documented By: ASHLEE Hydromorphone HCl (Hydromorphone Hcl 0.5 Mg/0.5 Ml Syringe) 0.5 mg IVPUSH Q3H PRN; Protocol PRN Reason: Pain, Severe (Pain Scale 7-10) Last Admin: 08/01/22 14:31 Dose: 0.5 mg Documented By: ZARI Hydromorphone HCl (Hydromorphone Hcl 0.5 Mg/0.5 Ml Syringe) 0.5 mg IVPUSH Q5M PRN; Protocol PRN Reason: Pain, Severe (Pain Scale 7-10) Last Admin: 07/31/22 16:15 Dose: 0.5 mg Documented By: WARM Lactated Ringer's (Lr) 1,000 mls @ 80 mls/hr IVCONT .[id number] [facility] Last Admin: 08/01/22 13:33 Dose: 80 mls/hr Documented By: ZARI Piperacillin Sod/Tazobactam (Sod 3.375 gm/ Sodium Chloride) 50 mls @ 100 mls/hr IV Q6H [facility] Last Infusion: 08/01/22 14:05 Dose: 0 mls/hr Documented By: ZARI Promethazine HCl 12.5 mg/ (Sodium Chloride) 50.5 mls @ 202 mls/hr IV ONCE PRN PRN Reason: Nausea and Vomiting Ondansetron HCl (Ondansetron Hcl 4 Mg/2 Ml Vial) 4 mg IVPUSH Q6H PRN PRN Reason: nausea Last Admin: 07/31/22 08:33 Dose: 4 mg Documented By: DABChani Ondansetron HCl (Ondansetron Hcl 4 Mg/2 Ml Vial) 4 mg IVPUSH ONCE PRN PRN Reason: Nausea and Vomiting Pharmacy Consult (Consult Rx Perform Med Rec) 1 each MISCELLANE ONCE PRN PRN Reason: Consult order Sodium Chloride (0.9 % Sodium Chloride Flush 3 Ml Syringe) [facility] Last Admin: 08/01/22 13:32 Dose: Not Given Documented By: ZARI Non-Admin Reason: IV Running Sodium Chloride (0.9 % Sodium Chloride Flush 3 Ml Syringe) [facility] Last Admin: 08/01/22 13:34 Dose: Not Given Documented By: ZARI Non-Admin Reason: IV Running Labs 08/01/22 05:27 08/01/22 05:27 Labs: Laboratory Results - last 24 hr 08/01/22 08/01/22 05:27 05:27 MCV 100.3 H MCH 32.5 MCHC 32.4 RDW 13.7 Plt Count 226 MPV 11.1 Absolute Nucleated RBC 0.000 Nucleated RBC % (auto) 0.0 Anion Gap 11 L Estim Creat Clear Calc 147.2 Estimated GFR > 60 Random Glucose 194 H Calcium 8.9 Microbiology Microbiology Results: Microbiology 07/30/22 21:34 Blood Culture - Preliminary Blood - Venous No growth after 24 hours. 07/30/22 21:34 Blood Culture - Preliminary Blood - Venous No growth after 24 hours. Assessment and Plan (1) Atrial fibrillation: Status: Acute (2) Hypertension: Status: Acute Plan 47 year old admitted by general surgery for acute appendicitis acute Appendicitis s/p open appendectomy 07/31 pain management continue zosyn management per surgical team Paroxysmal Afib in NSR Hold Eliquis for surgery, resume when safe from surgical perspective HTN Hold lisinopril for soft BP Mental health will resume buspirone, lexapro, remeron obesity. BMI 39.7 Discussed importance of weight management as this may be contributing to worsening of other comorbidities DVT prophylaxis with heparin - resume eliquis when safe from medical perspective Attending Dr. Barney Time Spent With Patient Time: Total time managing care of this patient today ____ minutes. Quality Stroke Does the patient have a stroke diagnosis?: No VTE Prior VTE?: No VTE Risk Level:: Medical - moderate - high VTE Device Contraindication: N/A - Device Ordered VTE Drug Contraindication: N/A - Med Ordered
[2022-08-01 15:39] VITALS: BP 128/70; PULSE 97; RESP 18; TEMP 36.5; O2SAT 93
--- NOTE | 2022-08-01 16:08 | PC.NURSE ---
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 No information given to person. Patient encouraged to call this person to update them considering she is her own person.
--- NOTE | 2022-08-01 17:18 | PC.NURSE ---
Pt void 275cc of concentrated yellow urine. Encouraged to drink more fluids. aware.
[2022-08-01 19:14] VITALS: BP 135/86; PULSE 100; RESP 17; TEMP 36.2; O2SAT 95
[2022-08-01] MEDS: Mirtazapine 30 MG TABLET PO (21:29)
[2022-08-01] MEDS: busPIRone HCl 5 MG TABLET PO (21:29)
[2022-08-01 23:39] VITALS: BP 126/83; PULSE 100; RESP 17; TEMP 36.6; O2SAT 93
[2022-08-02] VITALS (8 sets, daily range): BP systolic 132–157; BP diastolic 70–96; PULSE 78–110; RESP 17–20; TEMP 36.1–36.6; O2SAT 92–96
[2022-08-02] MEDS: HYDROmorphone HCl 0.5 MG/0.5 ML SYRINGE IVPUSH ×8 (01:03→23:44)
[2022-08-02] MEDS: Acetaminophen 1,000 MG/100 ML PIGGYBACK 400 MG IV ×3 (02:29→14:05)
[2022-08-02] MEDS: Heparin Sodium,Porcine 5,000 UNIT/ML VIAL 5000 UNIT SUBCUT ×3 (02:33→16:55)
[2022-08-02] MEDS: ondansetron HCL 4 MG/2 ML VIAL IVPUSH ×2 (03:17→09:32)
[2022-08-02] MEDS: LORazepam 2 MG/ML VIAL 0.5 MG IVPUSH ×2 (03:21→14:43)
[2022-08-02] MEDS: Piperacillin Sodium/Tazobactam 3.375 GM in 0.9 % Sodium Chloride 50 ML IV ×4 (03:27→20:50)
[2022-08-02] MEDS: busPIRone HCl 5 MG TABLET PO ×3 (08:02→20:58)
[2022-08-02] MEDS: Escitalopram Oxalate 5 MG TABLET 15 MG PO (08:02)
[2022-08-02] MEDS: Docusate Sodium 100 MG CAPSULE PO ×2 (08:02→21:00)
--- NOTE | 2022-08-02 08:46 | P.PNGS_ITS ---
Subjective Subjective Date of Service: 08/02/22 Interval history: pain on incisions she says she needs Dilaudid for control denies flatus no nausea or vomiting voiding without the catheter tolerating clear liquids well Physical Exam Vital Signs: Vital Signs: Last Vital Signs Temp 98 F 08/02/22 07:03 Pulse 110 H 08/02/22 07:03 Resp 19 08/02/22 07:03 BP 132/70 08/02/22 07:03 Pulse Ox 92 08/02/22 07:03 O2 Del Method Room Air 08/02/22 07:03 O2 Flow Rate 2.0 08/01/22 11:48 BMI result Body Mass Index 39.7 Const: General: no acute distress Resp: Effort & Inspection: normal respiratory effort Cardio: Rate: regular rate GI: Other: soft, tender mostly around incision, clean, packing removed, [place] drain with scanty serosanguineous fluid Objective Data Active Medications Buspirone HCl (Buspirone Hcl 5 Mg Tablet) 5 mg PO TID [facility] Last Admin: 08/02/22 08:02 Dose: 5 mg Documented By: ZARI Docusate Sodium (Docusate Sodium 100 Mg Capsule) 100 mg PO BID [facility] Last Admin: 08/02/22 08:02 Dose: 100 mg Documented By: ZARI Escitalopram Oxalate (Escitalopram Oxalate 5 Mg Tablet) 15 mg PO DAILY [facility] Last Admin: 08/02/22 08:02 Dose: 15 mg Documented By: ZARI Heparin Sodium (Porcine) (Heparin Sodium,Porcine 5,000 Unit/Ml Vial) 5,000 unit SUBCUT Q8H [facility] Last Admin: 08/02/22 02:33 Dose: 5,000 unit Documented By: JAVED Hydromorphone HCl (Hydromorphone Hcl 0.5 Mg/0.5 Ml Syringe) 0.5 mg IVPUSH Q3H PRN; Protocol PRN Reason: Pain, Severe (Pain Scale 7-10) Last Admin: 08/02/22 08:02 Dose: 0.5 mg Documented By: ZARI Lactated Ringer's (Lr) 1,000 mls @ 80 mls/hr IVCONT .[id number] [facility] Last Infusion: 08/01/22 22:38 Dose: 80 mls/hr Documented By: HO.BOURQC Piperacillin Sod/Tazobactam (Sod 3.375 gm/ Sodium Chloride) 50 mls @ 100 mls/hr IV Q6H [facility] Last Infusion: 08/02/22 08:13 Dose: 0 mls/hr Documented By: ZARI Acetaminophen (Ofirmev) 1,000 mg in 100 mls @ 400 mls/hr IV Q6H [facility] Stop: 08/02/22 14:14 Last Infusion: 08/02/22 07:22 Dose: 0 mls/hr Documented By: ZARI Mirtazapine (Mirtazapine 30 Mg Tablet) 30 mg PO BEDTIME [facility] Last Admin: 08/01/22 21:29 Dose: 30 mg Documented By: JAVED Ondansetron HCl (Ondansetron Hcl 4 Mg/2 Ml Vial) 4 mg IVPUSH Q6H PRN PRN Reason: nausea Last Admin: 08/02/22 03:17 Dose: 4 mg Documented By: JAVED Pharmacy Consult (Consult Rx Perform Med Rec) 1 each MISCELLANE ONCE PRN PRN Reason: Consult order Sodium Chloride (0.9 % Sodium Chloride Flush 3 Ml Syringe) 3 ml IVFLUSH QSHIFT [facility] Last Admin: 08/02/22 07:13 Dose: Not Given Documented By: ZARI Non-Admin Reason: IV Running Labs 08/01/22 05:27 08/01/22 05:27 Microbiology Microbiology Results: Microbiology 07/30/22 21:34 Blood Culture - Preliminary Blood - Venous No growth after 48 hours. 07/30/22 21:34 Blood Culture - Preliminary Blood - Venous No growth after 48 hours. Procedures Date of Service Date of Service: 08/02/22 Progress Note: A&P Assessment and plan (1) Acute appendicitis: Status: Acute Assessment and Plan: status post open appendectomy for very indurated, phlegmonous, suppurative appendix with small abscesses continue pain management encourage to getout of bed to chair await return of GI function - may be delayed in view of significant inflammatory changes in the right lower quadrant hospitalist following for multiple medical problems I removed her packings and changed her dressings [place] drain in place Time Spent With Patient Time: Total time managing care of this patient today ____ minutes. Quality Stroke Does the patient have a stroke diagnosis?: No VTE Prior VTE?: No VTE Risk Level:: Medical - moderate - high VTE Device Contraindication: N/A - Device Ordered VTE Drug Contraindication: N/A - Med Ordered
--- NOTE | 2022-08-02 13:49 | MHC.CM.PN ---
per rounds no anticapated dc date at this time
--- NOTE | 2022-08-02 14:34 | PC.NURSE ---
Vomiting roughly 300cc toi german MD notified, new order for NG placement, KUB, see eMAR for updated meds.
--- NOTE | 2022-08-02 15:10 | HO.PM.IMPN ---
Subjective Subjective Date of Service: 08/02/22 Interval History: seen and examined this morning follow up for medical consultation no overnight events having some pain at surgical site Review of Systems Review of Systems: Yes all other systems are reviewed and are negative Constitutional Constitutional: Denies chills and Denies fever(s) Cardiovascular Cardiovascular: Denies chest pain, Denies palpitations and Denies dyspnea Respiratory Respiratory: Denies cough and Denies dyspnea Gastrointestinal Gastrointestinal: Reports abdominal pain, Denies nausea and Denies vomiting Endocrine Endocrine: Denies palpitations Physical Exam Vital Signs: Vital Signs: Last Vital Signs Temp 98 F 08/02/22 12:57 Pulse 97 08/02/22 12:57 Resp 18 08/02/22 12:57 BP 142/74 H 08/02/22 12:57 Pulse Ox 96 08/02/22 12:57 O2 Del Method Room Air 08/02/22 12:57 O2 Flow Rate 2.0 08/01/22 11:48 BMI result Body Mass Index 39.7 Objective Data Active Medications Buspirone HCl (Buspirone Hcl 5 Mg Tablet) 5 mg PO TID [facility] Last Admin: 08/02/22 14:15 Dose: 5 mg Documented By: ZARI Docusate Sodium (Docusate Sodium 100 Mg Capsule) 100 mg PO BID [facility] Last Admin: 08/02/22 08:02 Dose: 100 mg Documented By: ZARI Escitalopram Oxalate (Escitalopram Oxalate 5 Mg Tablet) 15 mg PO DAILY [facility] Last Admin: 08/02/22 08:02 Dose: 15 mg Documented By: ZARI Heparin Sodium (Porcine) (Heparin Sodium,Porcine 5,000 Unit/Ml Vial) 5,000 unit SUBCUT Q8H [facility] Last Admin: 08/02/22 09:33 Dose: 5,000 unit Documented By: ZARI Hydromorphone HCl (Hydromorphone Hcl 0.5 Mg/0.5 Ml Syringe) 0.5 mg IVPUSH Q3H PRN; Protocol PRN Reason: Pain, Severe (Pain Scale 7-10) Last Admin: 08/02/22 14:01 Dose: 0.5 mg Documented By: ZARI Lactated Ringer's (Lr) 1,000 mls @ 80 mls/hr IVCONT .[id number] [facility] Last Infusion: 08/02/22 11:13 Dose: 0 mls/hr Documented By: ZARI Piperacillin Sod/Tazobactam (Sod 3.375 gm/ Sodium Chloride) 50 mls @ 100 mls/hr IV Q6H [facility] Last Infusion: 08/02/22 08:13 Dose: 0 mls/hr Documented By: ZARI Promethazine HCl 12.5 mg/ (Sodium Chloride) 50.5 mls @ 202 mls/hr IV Q6H PRN PRN Reason: Nausea Last Infusion: 08/02/22 14:44 Dose: 0 mls/hr Documented By: ZARI Lorazepam (Lorazepam 2 Mg/Ml Vial) 0.5 mg IVPUSH Q6H PRN PRN Reason: Anxiety Last Admin: 08/02/22 14:43 Dose: 0.5 mg Documented By: ZARI Mirtazapine (Mirtazapine 30 Mg Tablet) 30 mg PO BEDTIME [facility] Last Admin: 08/01/22 21:29 Dose: 30 mg Documented By: JAVED Ondansetron HCl (Ondansetron Hcl 4 Mg/2 Ml Vial) 4 mg IVPUSH Q6H PRN PRN Reason: nausea Last Admin: 08/02/22 09:32 Dose: 4 mg Documented By: ZARI Pharmacy Consult (Consult Rx Perform Med Rec) 1 each MISCELLANE ONCE PRN PRN Reason: Consult order Sodium Chloride (0.9 % Sodium Chloride Flush 3 Ml Syringe) 3 ml IVFLUSH QSHIFT [facility] Last Admin: 08/02/22 07:13 Dose: Not Given Documented By: ZARI Non-Admin Reason: IV Running Labs 08/01/22 05:27 08/01/22 05:27 Microbiology Microbiology Results: Microbiology 07/30/22 21:34 Blood Culture - Preliminary Blood - Venous No growth after 48 hours. 07/30/22 21:34 Blood Culture - Preliminary Blood - Venous No growth after 48 hours. Assessment and Plan (1) Atrial fibrillation: Status: Acute (2) Hypertension: Status: Acute Plan 47 year old admitted by general surgery for acute appendicitis acute Appendicitis s/p open appendectomy 07/31 continue pain management continue zosyn management per surgical team Paroxysmal Afib in NSR Hold Eliquis for surgery, plan to resume on eliquis 08/03 HTN Hold lisinopril for soft BP, can resume as bp allows Mental health will resume buspirone, lexapro, remeron obesity. BMI 39.7 Discussed importance of weight management as this may be contributing to worsening of other comorbidities DVT prophylaxis with heparin - resume eliquis when safe from medical perspective Attending Dr. Barney Thank you for allowing us to participate in the care of this patient. we will follow along with you Time Spent With Patient Time: Total time managing care of this patient today ____ minutes. Quality Stroke Does the patient have a stroke diagnosis?: No VTE Prior VTE?: No VTE Risk Level:: Medical - moderate - high VTE Device Contraindication: N/A - Device Ordered VTE Drug Contraindication: N/A - Med Ordered
[2022-08-02] MEDS: Lactated Ringers 1,000 ML 80 ML IVCONT ×2 (15:47→19:12)
--- NOTE | 2022-08-02 15:51 | PM.EVENT ---
Event Note Date of Service: 08/02/22 Event Note: sanjuanaut vomitted 300 cc KUB ordered - reviewed: shows stoamch distension, some SB dilatation, good air in colon c/w postop ileus NGT being placed now explained above to pt otherwise he looks well stable VS hoepfully to dc NGT over the weekend continue pain meds ok to give PO meds via NGT may restart Eliquis tomorrow Time Spent With Patient Time: Total time managing care of this patient today ____ minutes.
--- NOTE | 2022-08-02 16:03 | PC.NURSE ---
NG Tube inserted, awaiting CXR for placement.
[2022-08-02] MEDS: Mirtazapine 30 MG TABLET PO (20:58)
[2022-08-02] MEDS: Topiramate 25 MG TABLET 50 MG PO (20:58)
[2022-08-03] VITALS (7 sets, daily range): BP systolic 130–163; BP diastolic 78–95; PULSE 88–105; RESP 17–18; TEMP 36.2–36.6; O2SAT 92–96
[2022-08-03] MEDS: Piperacillin Sodium/Tazobactam 3.375 GM in 0.9 % Sodium Chloride 50 ML IV ×4 (03:03→20:22)
[2022-08-03] MEDS: Heparin Sodium,Porcine 5,000 UNIT/ML VIAL 5000 UNIT SUBCUT ×3 (03:03→18:38)
[2022-08-03] MEDS: HYDROmorphone HCl 0.5 MG/0.5 ML SYRINGE IVPUSH ×2 (06:30→10:26)
[2022-08-03 07:48] LABS: Hematocrit 38.7 % (42.0-52.0); Hemoglobin 12.5 g/dl (14.0-18.0); Mean Corpuscular HGB Conc 32.3 g/dl (31.0-36.0); Mean Corpuscular Hemoglobin 32.5 pg (27.0-33.0); Mean Corpuscular Volume 100.5 fL (80.0-98.0); Mean Platelet Volume 10.4 fL (9.4-12.4); Platelet Count 364 X10*3/uL (160-400); Red Blood Count 3.85 X10*6/uL (4.60-5.80); Red Cell Distribution Width 13.9 % (11.0-16.0); White Blood Count 9.8 X10*3/uL (4.8-10.8)
[2022-08-03 08:01] LABS: Anion Gap 14 (12-20); Blood Urea Nitrogen 26 mg/dL (9-16); Calcium 9.6 mg/dL (8.4-10.2); Carbon Dioxide 22 mmol/L (22-29); Chloride 110 mmol/L (96-108); Creatinine Clr Calc Pharmacy 126.2; Estimated Glomerular Filt Rate > 60; Glucose Random 227 mg/dL (60-115); Potassium 3.7 mmol/L (3.3-5.1); Sodium 142 mmol/L (135-145)
[2022-08-03] MEDS: Lactated Ringers 1,000 ML 80 ML IVCONT ×2 (08:19→20:25)
[2022-08-03] MEDS: Escitalopram Oxalate 5 MG TABLET 15 MG PO (08:26)
[2022-08-03] MEDS: Finasteride 5 MG TABLET PO (08:27)
[2022-08-03] MEDS: Docusate Sodium 100 MG CAPSULE PO (08:27)
[2022-08-03] MEDS: 0.9 % Sodium Chloride Flush 3 ML SYRINGE IVFLUSH (08:27)
[2022-08-03] MEDS: busPIRone HCl 5 MG TABLET PO ×2 (08:27→14:42)
--- NOTE | 2022-08-03 12:33 | P.PNGS_ITS ---
Subjective Subjective Date of Service: 08/03/22 Interval history: says feels like crap but doing better, no flatus no nausea Physical Exam Vital Signs: Vital Signs: Last Vital Signs Temp 97.3 F 08/03/22 11:33 Pulse 105 H 08/03/22 11:33 Resp 18 08/03/22 11:33 BP 158/95 H 08/03/22 11:33 Pulse Ox 92 08/03/22 11:33 O2 Del Method Room Air 08/03/22 11:33 O2 Flow Rate 2.0 08/01/22 11:48 BMI result Body Mass Index 39.7 Const: General: cooperative, healthy appearing, awake, Physically active and acute distress mild Orientation/consciousness: patient oriented x3 Resp: Effort & Inspection: normal respiratory effort and able to speak in complete sentences Auscultation: clear to auscultation bilaterally Cardio: Rate: regular rate Rhythm: regular rhythm GI: Other: abdo soft nontender, hypo bowel sounds incision looks great crhistina drain with serous drainage Skin: General skin exam: no rashes or lesions noted Neuro: General: patient oriented x3 Cranial nerves: Yes CN's II-XII intact bilaterally Objective Data Active Medications Buspirone HCl (Buspirone Hcl 5 Mg Tablet) 5 mg PO TID [facility] Last Admin: 08/03/22 08:27 Dose: 5 mg Documented By: CATE Docusate Sodium (Docusate Sodium 100 Mg Capsule) 100 mg PO BID [facility] Last Admin: 08/03/22 08:27 Dose: 100 mg Documented By: CATE Escitalopram Oxalate (Escitalopram Oxalate 5 Mg Tablet) 15 mg PO DAILY [facility] Last Admin: 08/03/22 08:26 Dose: 15 mg Documented By: CATE Finasteride (Finasteride 5 Mg Tablet) 5 mg PO DAILY [facility] Last Admin: 08/03/22 08:27 Dose: 5 mg Documented By: CATE Heparin Sodium (Porcine) (Heparin Sodium,Porcine 5,000 Unit/Ml Vial) 5,000 unit SUBCUT Q8H [facility] Last Admin: 08/03/22 10:25 Dose: 5,000 unit Documented By: CATE Hydromorphone HCl (Hydromorphone Hcl 0.5 Mg/0.5 Ml Syringe) 0.5 mg IVPUSH Q3H PRN; Protocol PRN Reason: Pain, Severe (Pain Scale 7-10) Last Admin: 08/03/22 10:26 Dose: 0.5 mg Documented By: CATE Lactated Ringer's (Lr) 1,000 mls @ 80 mls/hr IVCONT .[id number] [facility] Last Admin: 08/03/22 08:19 Dose: 80 mls/hr Documented By: CATE Piperacillin Sod/Tazobactam (Sod 3.375 gm/ Sodium Chloride) 50 mls @ 100 mls/hr IV Q6H [facility] Last Infusion: 08/03/22 09:10 Dose: 100 mls/hr Documented By: CATE Promethazine HCl 12.5 mg/ (Sodium Chloride) 50.5 mls @ 202 mls/hr IV Q6H PRN PRN Reason: Nausea Last Infusion: 08/02/22 14:44 Dose: 0 mls/hr Documented By: ZARI Lorazepam (Lorazepam 2 Mg/Ml Vial) 0.5 mg IVPUSH Q6H PRN PRN Reason: Anxiety Last Admin: 08/02/22 14:43 Dose: 0.5 mg Documented By: ZARI Mirtazapine (Mirtazapine 30 Mg Tablet) 30 mg PO BEDTIME [facility] Last Admin: 08/02/22 20:58 Dose: 30 mg Documented By: JERICA Morphine Sulfate (Morphine Sulfate 4 Mg/Ml Cartridge) 3 mg IVPUSH Q4H PRN; Protocol PRN Reason: Pain, Severe (Pain Scale 7-10) Ondansetron HCl (Ondansetron Hcl 4 Mg/2 Ml Vial) 4 mg IVPUSH Q6H PRN PRN Reason: nausea Last Admin: 08/02/22 09:32 Dose: 4 mg Documented By: ZARI Pharmacy Consult (Consult Rx Perform Med Rec) 1 each MISCELLANE ONCE PRN PRN Reason: Consult order Sodium Chloride (0.9 % Sodium Chloride Flush 3 Ml Syringe) 3 ml IVFLUSH QSHIFT [facility] Last Admin: 08/03/22 08:27 Dose: 3 ml Documented By: CATE Topiramate (Topiramate 25 Mg Tablet) 50 mg PO BEDTIME [facility] Last Admin: 08/02/22 20:58 Dose: 50 mg Documented By: JERICA Labs 08/03/22 07:31 08/03/22 07:31 Labs: Laboratory Results - last 24 hr 08/03/22 08/03/22 07:31 07:31 MCV 100.5 H MCH 32.5 MCHC 32.3 RDW 13.9 Plt Count 364 D MPV 10.4 Absolute Nucleated RBC 0.000 Nucleated RBC % (auto) 0.0 Anion Gap 14 Estim Creat Clear Calc 126.2 Estimated GFR > 60 Random Glucose 227 H Calcium 9.6 D Procedures Date of Service Date of Service: 08/03/22 Progress Note: A&P Assessment and plan (1) S/P appendectomy: Status: Acute Assessment and Plan: 47 year old s/p lap to open appy pod#3 doing overall well ileus cont - cont with npo and ivf and ng tube needs to ambulate and move cont with iv antibx cont with christina drain appreciate the med team following Time Spent With Patient Time: Total time managing care of this patient today ____ minutes. Quality Stroke Does the patient have a stroke diagnosis?: No VTE Prior VTE?: No VTE Risk Level:: Medical - moderate - high VTE Device Contraindication: N/A - Device Ordered VTE Drug Contraindication: N/A - Med Ordered
--- NOTE | 2022-08-03 16:29 | HO.PM.IMPN ---
Subjective Subjective Date of Service: 08/03/22 Interval History: seen and examined this morning Follow-up for medical consultation Had NG tube placed yesterday afternoon still reporting some abdominal pain otherwise no specific symptoms Review of Systems Review of Systems: Yes all other systems are reviewed and are negative Constitutional Constitutional: Denies chills and Denies fever(s) ENT Ears, Nose, Mouth, and Throat: Denies dizziness Cardiovascular Cardiovascular: Denies chest pain, Denies palpitations and Denies dyspnea Respiratory Respiratory: Denies cough and Denies dyspnea Gastrointestinal Gastrointestinal: Reports abdominal pain, Denies nausea and Denies vomiting Neurologic Neurologic: Denies dizziness Endocrine Endocrine: Denies palpitations Physical Exam Vital Signs: Vital Signs: Last Vital Signs Temp 97.3 F 08/03/22 15:34 Pulse 96 08/03/22 15:34 Resp 17 08/03/22 15:34 BP 130/83 08/03/22 15:34 Pulse Ox 93 08/03/22 15:34 O2 Del Method Room Air 08/03/22 15:34 O2 Flow Rate 2.0 08/01/22 11:48 BMI result Body Mass Index 39.7 Const: General: cooperative, comfortable, alert and awake Nutritional Appearance: overweight Orientation/consciousness: patient oriented x3 HEENT: Other: poor dentition NGT in place Resp: Other: diminished breath sounds Effort & Inspection: normal respiratory effort, able to speak in complete sentences, no respiratory distress and no use of accessory muscles Cardio: Rate: regular rate Heart sounds: S1 normal heart sound present and S2 normal heart sound present GI: Other: abdominal binder in place [place] drain with sm amt serous drainage Neuro: Other: grossly nonfocal General: patient oriented x3 and moves all extremities Extrem: General: Yes no pedal edema Objective Data Active Medications Buspirone HCl (Buspirone Hcl 5 Mg Tablet) 5 mg PO TID [facility] Last Admin: 08/03/22 14:42 Dose: 5 mg Documented By: CATE Docusate Sodium (Docusate Sodium 100 Mg Capsule) 100 mg PO BID [facility] Last Admin: 08/03/22 08:27 Dose: 100 mg Documented By: CATE Escitalopram Oxalate (Escitalopram Oxalate 5 Mg Tablet) 15 mg PO DAILY [facility] Last Admin: 08/03/22 08:26 Dose: 15 mg Documented By: CATE Finasteride (Finasteride 5 Mg Tablet) 5 mg PO DAILY [facility] Last Admin: 08/03/22 08:27 Dose: 5 mg Documented By: CATE Heparin Sodium (Porcine) (Heparin Sodium,Porcine 5,000 Unit/Ml Vial) 5,000 unit SUBCUT Q8H [facility] Last Admin: 08/03/22 10:25 Dose: 5,000 unit Documented By: CATE Lactated Ringer's (Lr) 1,000 mls @ 80 mls/hr IVCONT .[id number] [facility] Last Admin: 08/03/22 15:53 Dose: Not Given Documented By: SHANTA Non-Admin Reason: IV Running Piperacillin Sod/Tazobactam (Sod 3.375 gm/ Sodium Chloride) 50 mls @ 100 mls/hr IV Q6H [facility] Last Infusion: 08/03/22 15:18 Dose: 0 mls/hr Documented By: SHANTA Promethazine HCl 12.5 mg/ (Sodium Chloride) 50.5 mls @ 202 mls/hr IV Q6H PRN PRN Reason: Nausea Last Infusion: 08/02/22 14:44 Dose: 0 mls/hr Documented By: ZARI Lorazepam (Lorazepam 2 Mg/Ml Vial) 0.5 mg IVPUSH Q6H PRN PRN Reason: Anxiety Last Admin: 08/02/22 14:43 Dose: 0.5 mg Documented By: ZARI Mirtazapine (Mirtazapine 30 Mg Tablet) 30 mg PO BEDTIME [facility] Last Admin: 08/02/22 20:58 Dose: 30 mg Documented By: JERICA Morphine Sulfate (Morphine Sulfate 4 Mg/Ml Cartridge) 3 mg IVPUSH Q4H PRN; Protocol PRN Reason: Pain, Severe (Pain Scale 7-10) Ondansetron HCl (Ondansetron Hcl 4 Mg/2 Ml Vial) 4 mg IVPUSH Q6H PRN PRN Reason: nausea Last Admin: 08/02/22 09:32 Dose: 4 mg Documented By: ZARI Pharmacy Consult (Consult Rx Perform Med Rec) 1 each MISCELLANE ONCE PRN PRN Reason: Consult order Sodium Chloride (0.9 % Sodium Chloride Flush 3 Ml Syringe) 3 ml IVFLUSH QSHIFT [facility] Last Admin: 06/17/23 15:18 Dose: Not Given Documented By: SHANTA Non-Admin Reason: IV Running Topiramate (Topiramate 25 Mg Tablet) 50 mg PO BEDTIME [facility] Last Admin: 08/02/22 20:58 Dose: 50 mg Documented By: JERICA Labs 08/03/22 07:31 08/03/22 07:31 Labs: Laboratory Results - last 24 hr 08/03/22 08/03/22 07:31 07:31 MCV 100.5 H MCH 32.5 MCHC 32.3 RDW 13.9 Plt Count 364 D MPV 10.4 Absolute Nucleated RBC 0.000 Nucleated RBC % (auto) 0.0 Anion Gap 14 Estim Creat Clear Calc 126.2 Estimated GFR > 60 Random Glucose 227 H Calcium 9.6 D Assessment and Plan (1) S/P appendectomy: Status: Acute (2) Atrial fibrillation: Status: Acute Plan 47 year old admitted by general surgery for acute appendicitis acute Appendicitis s/p open appendectomy 07/31 now with postop ileus, NGT in place continue pain management continue zosyn management per surgical team Paroxysmal Afib in NSR Hold Eliquis for surgery, plan to resume on eliquis 08/04 HTN Hold lisinopril for soft BP, can resume as bp allows Mental health will resume buspirone, lexapro, remeron obesity. BMI 39.7 Discussed importance of weight management as this may be contributing to worsening of other comorbidities DVT prophylaxis with heparin - resume eliquis when safe from medical perspective Attending Dr. Douglas Thank you for allowing us to participate in the care of this patient. we will follow along with you Time Spent With Patient Time: Total time managing care of this patient today ____ minutes. Quality Stroke Does the patient have a stroke diagnosis?: No VTE Prior VTE?: No VTE Risk Level:: Medical - moderate - high VTE Device Contraindication: N/A - Device Ordered VTE Drug Contraindication: N/A - Med Ordered
[2022-08-03] MEDS: Morphine Sulfate 4 MG/ML CARTRIDGE 3 MG IVPUSH (20:10)
[2022-08-04] VITALS (7 sets, daily range): BP systolic 142–158; BP diastolic 74–88; PULSE 60–96; RESP 17–18; TEMP 35.9–36.6; O2SAT 91–96
[2022-08-04] MEDS: Morphine Sulfate 4 MG/ML CARTRIDGE 3 MG IVPUSH ×5 (01:56→23:49)
[2022-08-04] MEDS: Heparin Sodium,Porcine 5,000 UNIT/ML VIAL 5000 UNIT SUBCUT ×2 (01:57→11:10)
[2022-08-04] MEDS: Piperacillin Sodium/Tazobactam 3.375 GM in 0.9 % Sodium Chloride 50 ML IV ×4 (01:57→20:50)
[2022-08-04] MEDS: ondansetron HCL 4 MG/2 ML VIAL IVPUSH ×3 (06:03→23:36)
[2022-08-04 07:28] LABS: Alanine Aminotransferase 41 U/L (0-40); Alkaline Phosphatase 58 U/L (39-117); Aspartate Amino Transferase 50 U/L (5-37); Bilirubin Direct 0.1 mg/dL (0.0-0.5); Bilirubin Total 0.4 mg/dL (0.0-1.0); Total Protein 6.5 g/dL (6.5-8.0)
[2022-08-04] MEDS: Lactated Ringers 1,000 ML 80 ML IVCONT ×2 (08:06→22:38)
--- NOTE | 2022-08-04 12:27 | PM.PNGS ---
Subjective Subjective Date of Service: 08/04/22 Interval history: feeling better says passing gas but tired. no bowel movement Physical Exam Vital Signs: Vital Signs: Last Vital Signs Temp 97.5 F 08/04/22 11:11 Pulse 94 08/04/22 11:11 Resp 18 08/04/22 11:11 BP 158/88 H 08/04/22 11:11 Pulse Ox 93 08/04/22 11:11 O2 Del Method Room Air 08/04/22 11:11 O2 Flow Rate 2.0 08/01/22 11:48 BMI result Body Mass Index 39.7 Const: General: cooperative, comfortable and tired appearing Resp: Effort & Inspection: normal respiratory effort Auscultation: clear to auscultation bilaterally Cardio: Rate: regular rate Rhythm: regular rhythm GI: Other: soft nontender nondistended christina serous drainage bowel sounds better - more active ng still with rush fluid coming out Objective Data Active Medications Buspirone HCl (Buspirone Hcl 5 Mg Tablet) 5 mg PO TID [facility] Last Admin: 08/04/22 09:45 Dose: Not Given Documented By: SHANTA Non-Admin Reason: Patient Refused Docusate Sodium (Docusate Sodium 100 Mg Capsule) 100 mg PO BID [facility] Last Admin: 08/04/22 09:45 Dose: Not Given Documented By: SHANTA Non-Admin Reason: Patient Refused Escitalopram Oxalate (Escitalopram Oxalate 5 Mg Tablet) 15 mg PO DAILY [facility] Last Admin: 08/04/22 09:45 Dose: Not Given Documented By: SHANTA Non-Admin Reason: Patient Refused Finasteride (Finasteride 5 Mg Tablet) 5 mg PO DAILY [facility] Last Admin: 08/04/22 09:45 Dose: Not Given Documented By: SHANTA Non-Admin Reason: Patient Refused Heparin Sodium (Porcine) (Heparin Sodium,Porcine 5,000 Unit/Ml Vial) 5,000 unit SUBCUT Q8H [facility] Last Admin: 08/04/22 11:10 Dose: 5,000 unit Documented By: MERCED Lactated Ringer's (Lr) 1,000 mls @ 80 mls/hr IVCONT .[id number] [facility] Last Admin: 08/04/22 08:06 Dose: 80 mls/hr Documented By: SHANTA Piperacillin Sod/Tazobactam (Sod 3.375 gm/ Sodium Chloride) 50 mls @ 100 mls/hr IV Q6H [facility] Last Infusion: 08/04/22 08:29 Dose: 0 mls/hr Documented By: SHANTA Promethazine HCl 12.5 mg/ (Sodium Chloride) 50.5 mls @ 202 mls/hr IV Q6H PRN PRN Reason: Nausea Last Infusion: 08/02/22 14:44 Dose: 0 mls/hr Documented By: ZARI Lorazepam (Lorazepam 2 Mg/Ml Vial) 0.5 mg IVPUSH Q6H PRN PRN Reason: Anxiety Last Admin: 08/02/22 14:43 Dose: 0.5 mg Documented By: ZARI Mirtazapine (Mirtazapine 30 Mg Tablet) 30 mg PO BEDTIME [facility] Last Admin: 08/03/22 20:23 Dose: Not Given Documented By: AGUSTIN Non-Admin Reason: Patient Refused Morphine Sulfate (Morphine Sulfate 4 Mg/Ml Cartridge) 3 mg IVPUSH Q4H PRN; Protocol PRN Reason: Pain, Severe (Pain Scale 7-10) Last Admin: 08/04/22 09:21 Dose: 3 mg Documented By: SHANTA Ondansetron HCl (Ondansetron Hcl 4 Mg/2 Ml Vial) 4 mg IVPUSH Q6H PRN PRN Reason: nausea Last Admin: 08/04/22 06:03 Dose: 4 mg Documented By: AGUSTIN Pharmacy Consult (Consult Rx Perform Med Rec) 1 each MISCELLANE ONCE PRN PRN Reason: Consult order Sodium Chloride (0.9 % Sodium Chloride Flush 3 Ml Syringe) 3 ml IVFLUSH QSHIFT [facility] Last Admin: 08/04/22 07:21 Dose: Not Given Documented By: SHANTA Non-Admin Reason: IV Running Topiramate (Topiramate 25 Mg Tablet) 50 mg PO BEDTIME [facility] Last Admin: 08/03/22 20:22 Dose: Not Given Documented By: AGUSTIN Non-Admin Reason: Patient Refused Labs 08/03/22 07:31 08/03/22 07:31 Labs: Laboratory Results - last 24 hr 08/04/22 06:55 Total Bilirubin 0.4 Direct Bilirubin 0.1 AST 50 H ALT 41 H Alkaline Phosphatase 58 Total Protein 6.5 Albumin 3.0 L Procedures Date of Service Date of Service: 08/04/22 Progress Note: A&P Assessment and plan (1) S/P appendectomy: Status: Acute Assessment and Plan: pt sp lap to open appy - ileus improving still keep in ng tube, ambulate and oob in chair cont with iv fluids and iv pain meds check lytes in am hopefully turning the corner keep christina drain in place cont iv antibx Time Spent With Patient Time: Total time managing care of this patient today ____ minutes. Quality Stroke Does the patient have a stroke diagnosis?: No VTE Prior VTE?: No VTE Risk Level:: Medical - moderate - high VTE Device Contraindication: N/A - Device Ordered VTE Drug Contraindication: N/A - Med Ordered
--- NOTE | 2022-08-04 15:19 | HO.PM.IMPN ---
Subjective Subjective Date of Service: 08/04/22 Interval History: seen and examined this morning Follow-up for medical consultation no overnight events Patient still with NGT- she wants it removed Review of Systems Review of Systems: Yes all other systems are reviewed and are negative Constitutional Constitutional: Denies chills and Denies fever(s) Cardiovascular Cardiovascular: Denies chest pain, Denies palpitations and Denies dyspnea Respiratory Respiratory: Denies cough and Denies dyspnea Gastrointestinal Gastrointestinal: Reports abdominal pain Endocrine Endocrine: Denies palpitations Physical Exam Vital Signs: Vital Signs: Last Vital Signs Temp 97.9 F 08/04/22 15:17 Pulse 77 08/04/22 15:17 Resp 18 08/04/22 15:17 BP 157/80 H 08/04/22 15:17 Pulse Ox 93 08/04/22 15:17 O2 Del Method Room Air 08/04/22 15:17 O2 Flow Rate 2.0 08/01/22 11:48 BMI result Body Mass Index 39.7 Const: General: cooperative, comfortable, alert and awake Nutritional Appearance: overweight Orientation/consciousness: patient oriented x3 HEENT: Other: NGT present Resp: Effort & Inspection: normal respiratory effort, able to speak in complete sentences, no respiratory distress and no use of accessory muscles Auscultation: clear to auscultation bilaterally Cardio: Rate: regular rate Heart sounds: S1 normal heart sound present and S2 normal heart sound present GI: Other: [place] drain with sm amt serous drainage Neuro: Other: grossly nonfocal General: patient oriented x3 and moves all extremities Extrem: General: Yes no pedal edema Objective Data Active Medications Buspirone HCl (Buspirone Hcl 5 Mg Tablet) 5 mg PO TID [facility] Last Admin: 08/04/22 14:08 Dose: Not Given Documented By: MERCED Non-Admin Reason: Patient Refused Docusate Sodium (Docusate Sodium 100 Mg Capsule) 100 mg PO BID [facility] Last Admin: 08/04/22 09:45 Dose: Not Given Documented By: SHANTA Non-Admin Reason: Patient Refused Escitalopram Oxalate (Escitalopram Oxalate 5 Mg Tablet) 15 mg PO DAILY [facility] Last Admin: 08/04/22 09:45 Dose: Not Given Documented By: SHANTA Non-Admin Reason: Patient Refused Finasteride (Finasteride 5 Mg Tablet) 5 mg PO DAILY [facility] Last Admin: 08/04/22 09:45 Dose: Not Given Documented By: SHANTA Non-Admin Reason: Patient Refused Heparin Sodium (Porcine) (Heparin Sodium,Porcine 5,000 Unit/Ml Vial) 5,000 unit SUBCUT Q8H [facility] Last Admin: 08/04/22 11:10 Dose: 5,000 unit Documented By: MERCED Lactated Ringer's (Lr) 1,000 mls @ 80 mls/hr IVCONT .[id number] [facility] Last Admin: 08/04/22 08:06 Dose: 80 mls/hr Documented By: SHANTA Piperacillin Sod/Tazobactam (Sod 3.375 gm/ Sodium Chloride) 50 mls @ 100 mls/hr IV Q6H [facility] Last Infusion: 08/04/22 14:13 Dose: 0 mls/hr Documented By: MERCED Promethazine HCl 12.5 mg/ (Sodium Chloride) 50.5 mls @ 202 mls/hr IV Q6H PRN PRN Reason: Nausea Last Infusion: 08/02/22 14:44 Dose: 0 mls/hr Documented By: ZARI Lorazepam (Lorazepam 2 Mg/Ml Vial) 0.5 mg IVPUSH Q6H PRN PRN Reason: Anxiety Last Admin: 08/02/22 14:43 Dose: 0.5 mg Documented By: ZARI Mirtazapine (Mirtazapine 30 Mg Tablet) 30 mg PO BEDTIME [facility] Last Admin: 08/03/22 20:23 Dose: Not Given Documented By: AGUSTIN Non-Admin Reason: Patient Refused Morphine Sulfate (Morphine Sulfate 4 Mg/Ml Cartridge) 3 mg IVPUSH Q4H PRN; Protocol PRN Reason: Pain, Severe (Pain Scale 7-10) Last Admin: 08/04/22 13:40 Dose: 3 mg Documented By: MERCED Ondansetron HCl (Ondansetron Hcl 4 Mg/2 Ml Vial) 4 mg IVPUSH Q6H PRN PRN Reason: nausea Last Admin: 08/04/22 14:38 Dose: 4 mg Documented By: SHANTA Pharmacy Consult (Consult Rx Perform Med Rec) 1 each MISCELLANE ONCE PRN PRN Reason: Consult order Sodium Chloride (0.9 % Sodium Chloride Flush 3 Ml Syringe) 3 ml IVFLUSH QSHIFT [facility] Last Admin: 08/04/22 14:52 Dose: Not Given Documented By: SHANTA Non-Admin Reason: IV Running Topiramate (Topiramate 25 Mg Tablet) 50 mg PO BEDTIME [facility] Last Admin: 08/03/22 20:22 Dose: Not Given Documented By: AGUSTIN Non-Admin Reason: Patient Refused Labs 08/03/22 07:31 08/03/22 07:31 Labs: Laboratory Results - last 24 hr 08/04/22 06:55 Total Bilirubin 0.4 Direct Bilirubin 0.1 AST 50 H ALT 41 H Alkaline Phosphatase 58 Total Protein 6.5 Albumin 3.0 L Assessment and Plan (1) Atrial fibrillation: Status: Acute (2) Hypertension: Status: Acute Plan 47 year old admitted by general surgery for acute appendicitis acute Appendicitis s/p open appendectomy 07/31 now with postop ileus, NGT in place continue pain management continue zosyn management per surgical team Paroxysmal Afib in NSR resume Eliquis HTN BP trending back up will resume lisinopril Mental health will resume buspirone, lexapro, remeron obesity. BMI 39.7 Discussed importance of weight management as this may be contributing to worsening of other comorbidities DVT prophylaxis with heparin - resume eliquis when safe from medical perspective Attending Dr. Mcghee Thank you for allowing us to participate in the care of this patient. we will follow along with you Time Spent With Patient Time: Total time managing care of this patient today ____ minutes. Quality Stroke Does the patient have a stroke diagnosis?: No VTE Prior VTE?: No VTE Risk Level:: Medical - moderate - high VTE Device Contraindication: N/A - Device Ordered VTE Drug Contraindication: N/A - Med Ordered
--- NOTE | 2022-08-04 16:13 | PC.NURSE ---
Pt ambulated in hallway and sat in recliner today. Passing large amount of flatus. NGT draining rush secretions. Medicated twice this shift with morphine for pain and once with zofran for nausea, both with good effect
[2022-08-05] MEDS: Piperacillin Sodium/Tazobactam 3.375 GM in 0.9 % Sodium Chloride 50 ML IV ×4 (02:37→19:54)
[2022-08-05 03:56] VITALS: BP 143/77; PULSE 50; RESP 18; TEMP 36; O2SAT 94
[2022-08-05] MEDS: ondansetron HCL 4 MG/2 ML VIAL IVPUSH ×2 (05:32→13:04)
[2022-08-05] MEDS: Morphine Sulfate 4 MG/ML CARTRIDGE 3 MG IVPUSH (05:32)
[2022-08-05 07:14] VITALS: BP 164/70; PULSE 42; RESP 17; TEMP 36.2; O2SAT 93
--- NOTE | 2022-08-05 07:59 | ECG_ITS ---
Test Reason : BRADYCARDIA Blood Pressure : / mmHG Vent. Rate : 036 BPM Atrial Rate : 036 BPM P-R Int : 170 ms QRS Dur : 102 ms QT Int : 634 ms P-R-T Axes : 048 050 064 degrees QTc Int : 490 ms Marked sinus bradycardia Nonspecific ST abnormality Prolonged QT Abnormal ECG When compared with ECG of 18-MAR-2022 14:48, Premature ventricular complexes are no longer Present Vent. rate has decreased BY 60 BPM Non-specific change in ST segment in Anterior leads Nonspecific T wave abnormality no longer evident in Inferior leads Referred By: Pricila Lowe Electronically Signed By:CRISTI MIKE
[2022-08-05] MEDS: Lactated Ringers 1,000 ML 80 ML IVCONT (08:03)
--- NOTE | 2022-08-05 08:03 | P.PNIM_ITS ---
Subjective Subjective Date of Service: 08/05/22 Interval History: Seen and examined Interval history: Has no complaints at this time. NGT still in place. New onset bradycardia HR 42. pt asymptomatic- no lightheadedness, syncope, sob. No cp Review of Systems Review of Systems: Yes all other systems are reviewed and are negative Physical Exam Vital Signs: Vital Signs: Last Vital Signs Temp 97.2 F 08/05/22 07:14 Pulse 42 L 08/05/22 07:14 Resp 17 08/05/22 07:14 BP 164/70 H 08/05/22 07:14 Pulse Ox 93 08/05/22 07:14 O2 Del Method Room Air 08/05/22 07:14 O2 Flow Rate 2.0 08/01/22 11:48 BMI result Body Mass Index 39.7 Constitutional - Awake and Alert, No apparent distress Eyes - PERRLA, EOMI Cardiovascular - S1S2, regular rhythm, bradycardia, No edema Respiratory - Normal lung expansion, Normal respiratory effort, No respiratory distress, CTA bilaterally Gastrointestinal - NT / ND; +BS; No rebound or guarding Extremities - no calf tenderness bilaterally, no swelling Skin - Warm/Dry Neurological - Alert & oriented x3 Objective Data Active Medications Apixaban (Apixaban 5 Mg Tablet) 5 mg PO BID [facility] Last Admin: 08/04/22 21:39 Dose: Not Given Documented By: SALLY Non-Admin Reason: Patient Refused Buspirone HCl (Buspirone Hcl 5 Mg Tablet) 5 mg PO TID [facility] Last Admin: 08/04/22 20:48 Dose: Not Given Documented By: SALLY Non-Admin Reason: Patient Refused Docusate Sodium (Docusate Sodium 100 Mg Capsule) 100 mg PO BID [facility] Last Admin: 08/04/22 20:48 Dose: Not Given Documented By: SALLY Non-Admin Reason: Patient Refused Escitalopram Oxalate (Escitalopram Oxalate 5 Mg Tablet) 15 mg PO DAILY [facility] Last Admin: 08/04/22 09:45 Dose: Not Given Documented By: SHANTA Non-Admin Reason: Patient Refused Finasteride (Finasteride 5 Mg Tablet) 5 mg PO DAILY [facility] Last Admin: 08/04/22 09:45 Dose: Not Given Documented By: SHANTA Non-Admin Reason: Patient Refused Piperacillin Sod/Tazobactam (Sod 3.375 gm/ Sodium Chloride) 50 mls @ 100 mls/hr IV Q6H [facility] Last Infusion: 08/05/22 03:15 Dose: 0 mls/hr Documented By: SALLY Promethazine HCl 12.5 mg/ (Sodium Chloride) 50.5 mls @ 202 mls/hr IV Q6H PRN PRN Reason: Nausea Last Infusion: 08/02/22 14:44 Dose: 0 mls/hr Documented By: ZARI Lactated Ringer's (Lr) 1,000 mls @ 80 mls/hr IVCONT .[id number] [facility] Last Admin: 08/04/22 22:38 Dose: 80 mls/hr Documented By: SALLY Lisinopril (Lisinopril 20 Mg Tablet) 20 mg PO DAILY [facility]; Protocol Lorazepam (Lorazepam 2 Mg/Ml Vial) 0.5 mg IVPUSH Q6H PRN PRN Reason: Anxiety Last Admin: 08/02/22 14:43 Dose: 0.5 mg Documented By: ZARI Mirtazapine (Mirtazapine 30 Mg Tablet) 30 mg PO BEDTIME [facility] Last Admin: 08/04/22 20:48 Dose: Not Given Documented By: SALLY Non-Admin Reason: Patient Refused Morphine Sulfate (Morphine Sulfate 4 Mg/Ml Cartridge) 3 mg IVPUSH Q4H PRN; Protocol PRN Reason: Pain, Severe (Pain Scale 7-10) Last Admin: 08/05/22 05:32 Dose: 3 mg Documented By: SALLY Ondansetron HCl (Ondansetron Hcl 4 Mg/2 Ml Vial) 4 mg IVPUSH Q6H PRN PRN Reason: nausea Last Admin: 08/05/22 05:32 Dose: 4 mg Documented By: SALLY Pharmacy Consult (Consult Rx Perform Med Rec) 1 each MISCELLANE ONCE PRN PRN Reason: Consult order Sodium Chloride (0.9 % Sodium Chloride Flush 3 Ml Syringe) 3 ml IVFLUSH QSHIFT [facility] Last Admin: 08/05/22 07:34 Dose: Not Given Documented By: RYLAN Non-Admin Reason: IV Running Topiramate (Topiramate 25 Mg Tablet) 50 mg PO BEDTIME [facility] Last Admin: 08/04/22 20:48 Dose: Not Given Documented By: SALLY Non-Admin Reason: Patient Refused Labs 08/03/22 07:31 08/03/22 07:31 Microbiology Microbiology Results: Microbiology 07/30/22 21:34 Blood Culture - Final Blood - Venous No growth after 5 days. 07/30/22 21:34 Blood Culture - Final Blood - Venous No growth after 5 days. Assessment and Plan (1) Atrial fibrillation: Status: Acute (2) Hypertension: Status: Acute Plan 47 year old admitted by general surgery for acute appendicitis acute Appendicitis s/p open appendectomy 07/31 now with postop ileus, NGT in place continue pain management continue zosyn management per surgical team Sinus bradycardia- asymptomatic EKG showing sinus clifford, rate 38 with t wave inversions V1, V2, V4, V5 Not on any AV etienne blockers monitoring coordinator TSH, BMP, Mag, Trops ordered. Echo ordered Cardiology consult Paroxysmal Afib now with sinus bradycardia, not on rate control medications resume Eliquis HTN BP trending back up will resume lisinopril Mental health will resume buspirone, lexapro, remeron obesity. BMI 39.7 Discussed importance of weight management as this may be contributing to worsening of other comorbidities DVT prophylaxis with heparin - resume eliquis when safe from medical perspective Attending Dr. Velázquez Thank you for allowing us to participate in the care of this patient. we will follow along with you Time Spent With Patient Time: Total time managing care of this patient today ____ minutes. Quality Stroke Does the patient have a stroke diagnosis?: No VTE Prior VTE?: No VTE Risk Level:: Medical - moderate - high VTE Device Contraindication: N/A - Device Ordered VTE Drug Contraindication: N/A - Med Ordered
--- NOTE | 2022-08-05 08:04 | PM.PNGS ---
Subjective Subjective Date of Service: 08/05/22 Interval history: says she feels better passing flatus NGT output reported to be high - pt taking a lot of sips of water pain much improved she has been ambulating Physical Exam Vital Signs: Vital Signs: Last Vital Signs Temp 97.2 F 08/05/22 07:14 Pulse 42 L 08/05/22 07:14 Resp 17 08/05/22 07:14 BP 164/70 H 08/05/22 07:14 Pulse Ox 93 08/05/22 07:14 O2 Del Method Room Air 08/05/22 07:14 O2 Flow Rate 2.0 08/01/22 11:48 BMI result Body Mass Index 39.7 Const: General: comfortable and no acute distress Resp: Effort & Inspection: normal respiratory effort Cardio: Other: HR low, in the 40's GI: Other: midline incision wellhealing, clean, [place] scanty clear output Palpation (GI): Soft to palpation, not firm and no guarding Objective Data Active Medications Apixaban (Apixaban 5 Mg Tablet) 5 mg PO BID [facility] Last Admin: 08/04/22 21:39 Dose: Not Given Documented By: SALLY Non-Admin Reason: Patient Refused Buspirone HCl (Buspirone Hcl 5 Mg Tablet) 5 mg PO TID [facility] Last Admin: 08/04/22 20:48 Dose: Not Given Documented By: SALLY Non-Admin Reason: Patient Refused Docusate Sodium (Docusate Sodium 100 Mg Capsule) 100 mg PO BID [facility] Last Admin: 08/04/22 20:48 Dose: Not Given Documented By: SALLY Non-Admin Reason: Patient Refused Escitalopram Oxalate (Escitalopram Oxalate 5 Mg Tablet) 15 mg PO DAILY [facility] Last Admin: 08/04/22 09:45 Dose: Not Given Documented By: SHANTA Non-Admin Reason: Patient Refused Finasteride (Finasteride 5 Mg Tablet) 5 mg PO DAILY [facility] Last Admin: 08/04/22 09:45 Dose: Not Given Documented By: SHANTA Non-Admin Reason: Patient Refused Piperacillin Sod/Tazobactam (Sod 3.375 gm/ Sodium Chloride) 50 mls @ 100 mls/hr IV Q6H [facility] Last Admin: 08/05/22 08:03 Dose: 100 mls/hr Documented By: RYLAN Promethazine HCl 12.5 mg/ (Sodium Chloride) 50.5 mls @ 202 mls/hr IV Q6H PRN PRN Reason: Nausea Last Infusion: 08/02/22 14:44 Dose: 0 mls/hr Documented By: ZARI Lactated Ringer's (Lr) 1,000 mls @ 80 mls/hr IVCONT .[id number] [facility] Last Admin: 08/05/22 08:03 Dose: 80 mls/hr Documented By: RYLAN Lisinopril (Lisinopril 20 Mg Tablet) 20 mg PO DAILY [facility]; Protocol Lorazepam (Lorazepam 2 Mg/Ml Vial) 0.5 mg IVPUSH Q6H PRN PRN Reason: Anxiety Last Admin: 08/02/22 14:43 Dose: 0.5 mg Documented By: ZARI Mirtazapine (Mirtazapine 30 Mg Tablet) 30 mg PO BEDTIME [facility] Last Admin: 08/04/22 20:48 Dose: Not Given Documented By: SALLY Non-Admin Reason: Patient Refused Morphine Sulfate (Morphine Sulfate 4 Mg/Ml Cartridge) 3 mg IVPUSH Q4H PRN; Protocol PRN Reason: Pain, Severe (Pain Scale 7-10) Last Admin: 08/05/22 05:32 Dose: 3 mg Documented By: SALLY Ondansetron HCl (Ondansetron Hcl 4 Mg/2 Ml Vial) 4 mg IVPUSH Q6H PRN PRN Reason: nausea Last Admin: 08/05/22 05:32 Dose: 4 mg Documented By: SALLY Pharmacy Consult (Consult Rx Perform Med Rec) 1 each MISCELLANE ONCE PRN PRN Reason: Consult order Sodium Chloride (0.9 % Sodium Chloride Flush 3 Ml Syringe) 3 ml IVFLUSH QSHIFT [facility] Last Admin: 08/05/22 07:34 Dose: Not Given Documented By: RYLAN Non-Admin Reason: IV Running Topiramate (Topiramate 25 Mg Tablet) 50 mg PO BEDTIME [facility] Last Admin: 08/04/22 20:48 Dose: Not Given Documented By: SALLY Non-Admin Reason: Patient Refused Labs 08/03/22 07:31 06/17/23 07:31 Microbiology Microbiology Results: Microbiology 07/30/22 21:34 Blood Culture - Final Blood - Venous No growth after 5 days. 07/30/22 21:34 Blood Culture - Final Blood - Venous No growth after 5 days. Procedures Date of Service Date of Service: 08/05/22 Progress Note: A&P Assessment and plan (1) Acute appendicitis: Status: Acute Assessment and Plan: s/p open appy clinically much improved will clamp NGT, and reeval - he is passing flatus, taking a lot of liquids incision clean looks well HR low - may need to to be on tele; dw Hospitalist OOB, ambulate Time Spent With Patient Time: Total time managing care of this patient today ____ minutes. Quality Stroke Does the patient have a stroke diagnosis?: No VTE Prior VTE?: No VTE Risk Level:: Medical - moderate - high VTE Device Contraindication: N/A - Device Ordered VTE Drug Contraindication: N/A - Med Ordered
--- NOTE | 2022-08-05 08:32 | PC.NURSE ---
Patient HR between 32-42, Dr Schultz and Pricila EVANS aware. Stat EKG ordered and shows sinus clifford with T wave inversions, consult to cardiology made by Pricila EVANS
[2022-08-05 09:21] VITALS: BMI 39.7
--- NOTE | 2022-08-05 09:37 | MHC.CLN ---
NUTRITION CONSULT FOR PPN. S/P APPENDECTOMY. CURRENTLY NPO WITH POOR PO GREATER THAN 5 DAYS. RECOMMEND DAY 1 PPN D10AA4.25 AT 55 ML PER HOUR. PROVIDES 673 KCALS, 56 G PROTEIN. REPLETE LYTES NEEDED. DAY 2 PPN D10AA4.25 AT 75 ML PER HOUR. PROVIDES 918 KCALS, 77 G PROTEIN. REPLETE LYTES NEEDED. CHECK TRIGLYCERIDES. DAY 3 ADVANCE TO MAX GOAL RATE PPN D10AA4.25 AT 95 ML PER HOUR, ADD LIPIDS 20 ML PER HOUR OF 20% LIPIDS. PROVIDES 2123 KCALS (27.1 KCALS/KG IBW), 97 G PROTEIN (1.24 G/KG IBW). REPLETE LYTES NEEDED. RD TO FOLLOW FOR DIET ADVANCEMENT, PPN TOLERANCE, LYTES. SEE [facility] NUTRITION ASSESSMENT 08/05/22.
[2022-08-05 09:41] LABS: TSH reflex Free T4 1.54 uIU/mL (0.32-4.0)
[2022-08-05 10:35] LABS: Albumin Level 3.1 g/dL (3.5-5.0); Anion Gap 15 (12-20); Blood Urea Nitrogen 25 mg/dL (9-16); Calcium 9.4 mg/dL (8.4-10.2); Carbon Dioxide 26 mmol/L (22-29); Chloride 114 mmol/L (96-108); Creatinine Clr Calc Pharmacy 117.8; Estimated Glomerular Filt Rate > 60; Glucose Random 206 mg/dL (60-115); Magnesium 2.3 mg/dL (1.6-2.6); Phosphorus 3.1 mg/dL (2.7-4.5); Potassium 3.4 mmol/L (3.3-5.1); Sodium 152 mmol/L (135-145)
[2022-08-05 10:41] LABS: Troponin-I High Sensitivity 13.9 ng/L (<3.5-35.0)
--- NOTE | 2022-08-05 10:51 | PM.CNCAR ---
History of Present Illness History of Present Illness Date of Service: 08/05/22 Chief complaint: Appendiceal abscess Narrative: This is a cardiology consultation regarding abnormal EKG. Per documentation, she is here for appendicitis and underwent surgery for the same about 5 days ago. She still has postop ileus and has an NG tube placed. On pain medications. From the cardiac standpoint has a history of paroxysmal atrial fibrillation. It seems that patient has had ablation in [place] in the past. Remains on Eliquis. At this time, no complaints like angina or shortness of breath or palpitations or in fact anything cardiac sounding at all. Some abdominal discomfort only. Review of Systems Review of Systems: Yes all other systems are reviewed and are negative Constitutional: Constitutional: Reports as per HPI and Reports no additional constitutional complaints Eyes: Eyes: Reports as per HPI and Denies no additional eye complaints ENT: Denies system reviewed and no additional complaints, except as documented and Reports as per HPI Cardiovascular: Cardiovascular: Reports as per HPI, Reports no additional cardiovascular complaints, Denies acrocyanosis, Denies cool extremities, Denies chest pain, Denies leg edema, Denies lightheadedness, Denies palpitations and Denies dyspnea Respiratory: Respiratory: Reports as per HPI, Denies no additional respiratory complaints and Denies dyspnea Gastrointestinal: Gastrointestinal: Reports as per HPI and Denies no additional gastrointestinal complaints Genitourinary: Genitourinary: Reports no additional male genitourinary complaints and Reports as per HPI Musculoskeletal: Musculoskeletal: Reports no additional musculoskeletal complaints and Reports as per HPI Integumentary/Breasts: Skin/Breast: Reports system reviewed and no additional complaints, except as docu Neurologic: Reports system reviewed and no additional complaints, except as documented and Reports as per HPI Psychiatric: Psychiatric: Reports no additional psychiatric complaints and Reports as per HPI Endocrine: Endocrine: Reports no additional endocrine complaints, Reports as per HPI and Denies palpitations Hematologic/Lymphatic: Hematologic/Lymphatic: Reports no additional hematologic/lymphatic complaints and Reports as per HPI Allergic/Immunologic: Allergic/Immunologic: Reports no additional allergic/immunologic complaints and Reports as per HPI [facility] Past Medical History Medical History (Updated 08/05/22 @ 10:57 by Raymon Morales MD) Atrial fibrillation CHF (congestive heart failure) Depression Drug abuse in remission Hypertension Obesity Family History Family History (Updated 08/05/22 @ 10:53 by Raymon Morales MD) Mother Angina pectoris Surgical History Surgical History (Updated 08/03/22 @ 12:35 by Annabelle White MD) S/P ablation of atrial fibrillation Status post laparoscopic cholecystectomy Status post laparoscopic procedure Social History Social History Household Members: Other Housing: Other Housing Other:: shelter Do you presently have visiting nurse or other home services: Yes Alcohol intake: never Patient Tobacco Use Status: Never used Tobacco Smoked in Last 30 Days: No Use of substances other than those prescribed or required for medical reasons: No Substance Use Type: Methamphetamine Substance Use Type Other:: crystal meth 6 months drug free Substance Use Frequency: Monthly Substance Use Frequency Other:: clean for 6 months Last Used Substance: Weeks (ago) Last Used Substance Other:: crystal meth Currently Displaying Signs/Symptoms of Drug Intoxication Withdrawal: No Any prior treatment program specific to substance use: No Have you been hit, kicked, punched, or otherwise hurt by someone within the past year? If so, by whom?: No Do you feel safe in your current relationship?: No Current Relationship Is there a partner from a previous relationship who is making you feel unsafe now?: No Are you made to feel afraid or neglected: No Are you DNR?: No Advance Directives: No Advance Directives Information Provided: Yes Do you have thoughts of harming others: None Do you have a plan to hurt others: No Plan Recently lost weight without trying: No How much weight loss: Not applicable Eating poorly because of decreased appetite: No Nutrition screen score: 0 Nutrition Risks: No Nutritional Risk Poor oral hygiene: No service: No Current occupational status: unemployed Meds Allergies Allergy/AdvReac Type Severity Reaction Status Date / Time cephalexin Allergy Mild Hives Verified 03/18/22 13:29 Active Medications: Current Medications Apixaban (Apixaban 5 Mg Tablet) 5 mg PO BID [facility] BEDS AT [facility] Last Admin: 08/05/22 08:14 Dose: Not Given Buspirone HCl (Buspirone Hcl 5 Mg Tablet) 5 mg PO TID [facility] 234 BEDS AT [facility] Last Admin: 08/05/22 08:14 Dose: Not Given Docusate Sodium (Docusate Sodium 100 Mg Capsule) 100 mg PO BID [facility] 234 BEDS AT [facility] Last Admin: 08/05/22 08:14 Dose: Not Given Escitalopram Oxalate (Escitalopram Oxalate 5 Mg Tablet) 15 mg PO DAILY [facility] 234 BEDS AT [facility] Last Admin: 08/05/22 08:14 Dose: Not Given Finasteride (Finasteride 5 Mg Tablet) 5 mg PO DAILY [facility] 234 BEDS AT [facility] Last Admin: 08/05/22 08:14 Dose: Not Given Piperacillin Sod/Tazobactam (Sod 3.375 gm/ Sodium Chloride) 50 mls @ 100 mls/hr IV Q6H [facility] Last Infusion: 08/05/22 08:38 Dose: Infused Promethazine HCl 12.5 mg/ (Sodium Chloride) 50.5 mls @ 202 mls/hr IV Q6H PRN PRN Reason: Nausea Last Infusion: 08/05/22 10:03 Dose: Infused Lactated Ringer's (Lr) 1,000 mls @ 80 mls/hr IVCONT .[id number] [facility] 234 B[facility]S AT [facility] Last Admin: 08/05/22 08:03 Dose: 80 mls/hr Lisinopril (Lisinopril 20 Mg Tablet) 20 mg PO DAILY [facility] 234 BEDS AT [facility]; Protocol Last Admin: 08/05/22 08:14 Dose: Not Given Lorazepam (Lorazepam 2 Mg/Ml Vial) 0.5 mg IVPUSH Q6H PRN PRN Reason: Anxiety Last Admin: 08/02/22 14:43 Dose: 0.5 mg Mirtazapine (Mirtazapine 30 Mg Tablet) 30 mg PO BEDTIME [facility] 234 BEDS AT [facility] Last Admin: 08/04/22 20:48 Dose: Not Given Morphine Sulfate (Morphine Sulfate 4 Mg/Ml Cartridge) 2 mg IVPUSH Q4H PRN; Protocol PRN Reason: Pain, Severe (Pain Scale 7-10) Ondansetron HCl (Ondansetron Hcl 4 Mg/2 Ml Vial) 4 mg IVPUSH Q6H PRN PRN Reason: nausea Last Admin: 08/05/22 05:32 Dose: 4 mg Pharmacy Consult (Consult Rx Perform Med Rec) 1 each MISCELLANE ONCE PRN PRN Reason: Consult order Sodium Chloride (0.9 % Sodium Chloride Flush 3 Ml Syringe) 3 ml IVFLUSH QSHIFT [facility]CLUDE 234 BEDS AT [facility] Last Admin: 08/05/22 07:34 Dose: Not Given Topiramate (Topiramate 25 Mg Tablet) 50 mg PO BEDTIME [facility] 234 BEDS AT [facility] Last Admin: 08/04/22 20:48 Dose: Not Given Home Medications Medication Instructions Recorded Confirmed Last Taken Type apixaban 5 mg tablet (Eliquis) 5 mg PO BID 07/30/22 07/30/22 07/30/22 History atomoxetine 60 mg capsule 60 mg PO DAILY 07/30/22 07/30/22 07/30/22 History (Strattera) buspirone 5 mg tablet 5 mg PO TID 07/30/22 07/30/22 07/30/22 History cyclobenzaprine 10 mg tablet 10 mg PO BID PRN muscle spasm 07/30/22 07/30/22 07/29/22 History docusate sodium 100 mg capsule 100 mg PO BID 07/30/22 07/30/22 07/30/22 History escitalopram oxalate 10 mg tablet 15 mg PO DAILY 07/30/22 07/30/22 07/30/22 History estradiol 0.1 mg/24 hr weekly 3 patch transdermal Q72H 07/30/22 07/30/22 07/28/22 History transdermal patch finasteride 5 mg tablet 5 mg PO DAILY 07/30/22 07/30/22 07/30/22 History lisinopril 20 mg tablet 20 mg PO DAILY 07/30/22 07/30/22 07/30/22 History mirtazapine 30 mg tablet 30 mg PO BEDTIME 07/30/22 07/30/22 07/29/22 History sennosides 8.6 mg tablet (senna) 8.6 mg PO BID 07/30/22 07/30/22 07/30/22 History topiramate 50 mg tablet 50 mg PO BEDTIME 07/30/22 07/30/22 07/29/22 History Physical Exam Vital Signs: Vital Signs: Last Vital Signs Temp 97.2 F 08/05/22 07:14 Pulse 42 L 08/05/22 07:14 Resp 17 08/05/22 07:14 BP 164/70 H 08/05/22 07:14 Pulse Ox 93 08/05/22 07:14 O2 Del Method Room Air 08/05/22 07:14 O2 Flow Rate 2.0 08/01/22 11:48 BMI result Body Mass Index 39.7 Const: General: comfortable and no acute distress Orientation/consciousness: patient oriented x3 HEENT: Other: Unremarkable Head: Yes normal to inspection Neck: Neck: Yes normal visual inspection Chest: Chest palpation & inspection: normal inspection of the chest Resp: Auscultation: clear to auscultation bilaterally Cardio: Palpation: normal PMI Heart sounds: S1 normal heart sound present, S2 normal heart sound present, no gallops, Murmur heart sound present systolic I/ and at the right sternal border and no rubs GI: Palpation (GI): Soft to palpation Back/Spine/Pelvis: Other: unremarkable Skin: General skin exam: no rashes or lesions noted Neuro: General: patient oriented x3 Extrem: General: Yes normal to inspection Psych: Mental Status: mental status grossly normal Objective Labs and Meds 08/03/22 07:31 08/05/22 09:57 Lab results: Laboratory Results - last 24 hr 08/05/22 08/05/22 08/05/22 08:38 09:57 09:57 Sodium 152 H Potassium 3.4 Chloride 114 H Carbon Dioxide 26 Anion Gap 15 BUN 25 H Creatinine 1.05 Estim Creat Clear Calc 117.8 Estimated GFR > 60 Random Glucose 206 H Calcium 9.4 Phosphorus 3.1 Magnesium 2.3 Troponin I High Sens 13.9 D Albumin 3.1 L TSH 1.54 08/05/22 09:57 Sodium Cancelled Potassium Cancelled Chloride Cancelled Carbon Dioxide Cancelled Anion Gap Cancelled BUN Cancelled Creatinine Cancelled Estim Creat Clear Calc Cancelled Estimated GFR Cancelled Random Glucose Cancelled Calcium Cancelled Phosphorus Cancelled Magnesium Cancelled Troponin I High Sens Albumin Cancelled TSH ECG Interpretation: EKG with sinus bradycardia at 36/Min; T inversions in lead V1 and V2. Normal MO. Corrected QT is 490 milliseconds. In the prior EKG from February, sinus rhythm at 96/Min with PVC. Assessment and Plan (1) Sinus bradycardia: Status: Acute (2) Abnormal EKG: Status: Acute (3) S/P appendectomy: Status: Acute (4) S/P ablation of atrial fibrillation: Status: Acute (5) Drug abuse in remission: Status: Acute Plan Electrolytes show slightly high sodium at 01:52. Potassium is 3.4. Creatinine is 1.05. Magnesium is 2.3. High sensitivity troponin 13.9. Echocardiogram from April shows LVEF of 44%. Mild global hypokinesis. Bradycardia could be a vagal effect. Could be also related to pain as well as pain medications. Unless absolutely necessary, can cut back on pain medications. Especially narcotics. With regard to other psychotropic medications, again use only absolutely necessary ones. Monitor on telemetry. Will follow-up. Discussed with hospitalist. Time Spent With Patient Time: Total time managing care of this patient today ____ minutes. Procedures Date of Service Date of Service: 08/05/22
[2022-08-05 11:46] VITALS: BP 165/79; PULSE 36; RESP 18; TEMP 36.2; O2SAT 94
[2022-08-05] MEDS: Dextrose 5 % and 0.45 % NaCl 1,000 ML 100 ML IVCONT (13:04)
--- NOTE | 2022-08-05 13:23 | PM.EVENT ---
Event Note Date of Service: 08/05/22 Event Note: Denies nausea or vomiting after clamping NG tube Passing flatus NG tube placed back to suction - minimal output NG tube DC'ed Keep on clear liquids, ice chips Encouraged to get out of bed more Doing well Heart rate still low - hospitalist service following Sodium elevated Time Spent With Patient Time: Total time managing care of this patient today ____ minutes.
[2022-08-05] MEDS: busPIRone HCl 5 MG TABLET PO (14:34)
[2022-08-05] MEDS: 0.9 % Sodium Chloride Flush 3 ML SYRINGE IVFLUSH (15:05)
[2022-08-05 15:13] VITALS: BP 165/79; PULSE 36; O2SAT 94
--- NOTE | 2022-08-05 15:22 | MHC.CM.PN ---
per rounds pt is not dcd at this time dc plan home with alvarez
[2022-08-05 15:28] VITALS: BP 131/62; PULSE 45; RESP 18; TEMP 36.1; O2SAT 97
[2022-08-05 18:28] LABS: Anion Gap 15 (12-20); Blood Urea Nitrogen 21 mg/dL (9-16); Carbon Dioxide 24 mmol/L (22-29); Chloride 115 mmol/L (96-108); Creatinine Clr Calc Pharmacy 118.9; Estimated Glomerular Filt Rate > 60; Glucose Random 211 mg/dL (60-115); Potassium 3.8 mmol/L (3.3-5.1); Sodium 150 mmol/L (135-145)
[2022-08-05 20:00] VITALS: BP 149/70; PULSE 43; RESP 18; TEMP 36; O2SAT 99
[2022-08-05] MEDS: Topiramate 25 MG TABLET 50 MG PO (21:12)
[2022-08-05] MEDS: Docusate Sodium 100 MG CAPSULE PO (21:12)
[2022-08-05] MEDS: Apixaban 5 MG TABLET PO (21:13)
[2022-08-06] VITALS: BP 130/69; PULSE 53; RESP 16; TEMP 36.4; O2SAT 94
[2022-08-06] MEDS: Piperacillin Sodium/Tazobactam 3.375 GM in 0.9 % Sodium Chloride 50 ML IV ×4 (03:02→20:38)
[2022-08-06] MEDS: Dextrose 5 % and 0.45 % NaCl 1,000 ML 50 ML IVCONT (03:27)
[2022-08-06 04:00] VITALS: BP 147/79; PULSE 54; RESP 16; TEMP 36.1; O2SAT 97
[2022-08-06 07:31] VITALS: BP 164/77; PULSE 49; RESP 16; TEMP 36.8; O2SAT 98
[2022-08-06] MEDS: Finasteride 5 MG TABLET PO (07:36)
[2022-08-06] MEDS: Escitalopram Oxalate 5 MG TABLET 15 MG PO (07:38)
[2022-08-06] MEDS: Apixaban 5 MG TABLET PO ×2 (07:38→20:39)
[2022-08-06] MEDS: Docusate Sodium 100 MG CAPSULE PO ×2 (07:38→20:39)
[2022-08-06] MEDS: lisinopriL 20 MG TABLET PO (07:39)
--- NOTE | 2022-08-06 08:11 | PM.PNGS ---
Subjective Subjective Date of Service: 08/06/22 Interval history: feels much better passing flatus says she had small BMs pain much improved Physical Exam Vital Signs: Vital Signs: Last Vital Signs Temp 98.3 F 08/06/22 07:31 Pulse 49 L 08/06/22 07:31 Resp 16 08/06/22 07:31 BP 164/77 H 08/06/22 07:31 Pulse Ox 98 08/06/22 07:31 O2 Del Method Room Air 08/06/22 07:31 O2 Flow Rate 2.0 08/01/22 11:48 BMI result Body Mass Index 39.7 Const: General: comfortable and no acute distress Resp: Effort & Inspection: normal respiratory effort Cardio: Rate: bradycardic GI: Other: incision clean and dry, CAROLINA drain scanty, serosanguineous output Palpation (GI): Soft to palpation, not firm and no guarding Objective Data Active Medications Apixaban (Apixaban 5 Mg Tablet) 5 mg PO BID [facility] Last Admin: 08/06/22 07:38 Dose: 5 mg Documented By: MICHAEL Buspirone HCl (Buspirone Hcl 5 Mg Tablet) 5 mg PO TID [facility] Last Admin: 08/05/22 14:34 Dose: 5 mg Documented By: RYLAN Docusate Sodium (Docusate Sodium 100 Mg Capsule) 100 mg PO BID [facility] Last Admin: 08/06/22 07:38 Dose: 100 mg Documented By: MICHAEL Escitalopram Oxalate (Escitalopram Oxalate 5 Mg Tablet) 15 mg PO DAILY [facility] Last Admin: 08/06/22 07:38 Dose: 15 mg Documented By: MICHAEL Finasteride (Finasteride 5 Mg Tablet) 5 mg PO DAILY [facility] Last Admin: 08/06/22 07:36 Dose: 5 mg Documented By: MICHAEL Piperacillin Sod/Tazobactam (Sod 3.375 gm/ Sodium Chloride) 50 mls @ 100 mls/hr IV Q6H [facility] Last Admin: 08/06/22 07:39 Dose: 100 mls/hr Documented By: MICHAEL Promethazine HCl 12.5 mg/ (Sodium Chloride) 50.5 mls @ 202 mls/hr IV Q6H PRN PRN Reason: Nausea Last Infusion: 08/05/22 10:03 Dose: 0 mls/hr Documented By: RYLAN Magnesium Sulfate 10 meq/Potassium Phosphate 30 mmol/Calcium Gluconate 9.3 meq/Potassium Acetate 20 meq/Multivitamins 10 ml/ Trace Metals 1 ml/ Amino Acids/Electrolytes/Dextrose 1,320 mls @ 55 mls/hr IVCONT DAILY@1800 [facility] Last Admin: 08/05/22 17:27 Dose: 55 mls/hr Documented By: RYLAN Dextrose/Sodium Chloride (D51/2ns) 1,000 mls @ 50 mls/hr IVCONT .Q20H [facility] Last Admin: 08/06/22 03:27 Dose: 50 mls/hr Documented By: AGUSTIN Lisinopril (Lisinopril 20 Mg Tablet) 20 mg PO DAILY [facility]; Protocol Last Admin: 08/06/22 07:39 Dose: 20 mg Documented By: MICHAEL Lorazepam (Lorazepam 2 Mg/Ml Vial) 0.5 mg IVPUSH Q6H PRN PRN Reason: Anxiety Last Admin: 08/02/22 14:43 Dose: 0.5 mg Documented By: ZARI Mirtazapine (Mirtazapine 30 Mg Tablet) 30 mg PO BEDTIME [facility] Last Admin: 08/04/22 20:48 Dose: Not Given Documented By: SALLY Non-Admin Reason: Patient Refused Morphine Sulfate (Morphine Sulfate 4 Mg/Ml Cartridge) 2 mg IVPUSH Q4H PRN; Protocol PRN Reason: Pain, Severe (Pain Scale 7-10) Last Admin: 08/06/22 00:00 Dose: 2 mg Documented By: AGUSTIN Ondansetron HCl (Ondansetron Hcl 4 Mg/2 Ml Vial) 4 mg IVPUSH Q6H PRN PRN Reason: nausea Last Admin: 08/05/22 13:04 Dose: 4 mg Documented By: RYLAN Pharmacy Consult (Consult Rx Perform Med Rec) 1 each MISCELLANE ONCE PRN PRN Reason: Consult order Sodium Chloride (0.9 % Sodium Chloride Flush 3 Ml Syringe) 3 ml IVFLUSH QSHIFT [facility] Last Admin: 08/06/22 07:38 Dose: Not Given Documented By: MICHAEL Non-Admin Reason: IV Running Topiramate (Topiramate 25 Mg Tablet) 50 mg PO BEDTIME [facility] Last Admin: 08/05/22 21:12 Dose: 50 mg Documented By: AGUSTIN Labs 08/03/22 07:31 08/05/22 18:04 Labs: Laboratory Results - last 24 hr 08/05/22 08/05/22 08/05/22 08:38 09:57 09:57 Anion Gap 15 Estim Creat Clear Calc 117.8 Estimated GFR > 60 Random Glucose 206 H Calcium 9.4 Phosphorus 3.1 Magnesium 2.3 Troponin I High Sens 13.9 D Albumin 3.1 L TSH 1.54 08/05/22 08/05/22 09:57 18:04 Anion Gap Cancelled 15 Estim Creat Clear Calc Cancelled 118.9 Estimated GFR Cancelled > 60 Random Glucose Cancelled 211 H Calcium Cancelled 9.0 Phosphorus Cancelled Magnesium Cancelled Troponin I High Sens Albumin Cancelled TSH Procedures Date of Service Date of Service: 08/06/22 Progress Note: A&P Assessment and plan (1) S/P appendectomy: Status: Acute Assessment and Plan: continues to improved feels much better today NG tube removed yesterday no nausea or vomiting appears to have good GI function restart diet encouraged to ambulate more hospitalist following heart rate still low, patient remains asymptomatic Time Spent With Patient Time: Total time managing care of this patient today ____ minutes. Quality Stroke Does the patient have a stroke diagnosis?: No VTE Prior VTE?: No VTE Risk Level:: Medical - moderate - high VTE Device Contraindication: N/A - Device Ordered VTE Drug Contraindication: N/A - Med Ordered
[2022-08-06] MEDS: Morphine Sulfate 4 MG/ML CARTRIDGE 2 MG IVPUSH ×2 (08:30)
[2022-08-06] MEDS: polyethylene glycoL 3350 17 GM POWD.PACK PO (08:33)
[2022-08-06] MEDS: ondansetron HCL 4 MG/2 ML VIAL IVPUSH (09:36)
--- NOTE | 2022-08-06 09:44 | P.PNIM_ITS ---
Subjective Subjective Date of Service: 08/06/22 Interval History: Seen and examined Interval history: Reports mild diffuse abd discomfort. Reports constipation. PPN dc'd, diet advanced. HR's improved. No sob, , lightheadedness, chest pain. Review of Systems Review of Systems: Yes all other systems are reviewed and are negative Physical Exam Vital Signs: Vital Signs: Last Vital Signs Temp 98.3 F 08/06/22 07:31 Pulse 49 L 08/06/22 07:31 Resp 16 08/06/22 07:31 BP 164/77 H 08/06/22 07:31 Pulse Ox 98 08/06/22 07:31 O2 Del Method Room Air 08/06/22 07:31 O2 Flow Rate 2.0 08/01/22 11:48 BMI result Body Mass Index 39.7 Constitutional - Awake and Alert, No apparent distress Eyes - PERRLA, EOMI Cardiovascular - S1S2, regular rhythm, bradycardia, No edema Respiratory - Normal lung expansion, Normal respiratory effort, No respiratory distress, CTA bilaterally Gastrointestinal - NT / ND; +BS; No rebound or guarding Extremities - no calf tenderness bilaterally, no swelling Skin - Warm/Dry Neurological - Alert & oriented x3 Objective Data Active Medications Apixaban (Apixaban 5 Mg Tablet) 5 mg PO BID [facility] Last Admin: 08/06/22 07:38 Dose: 5 mg Documented By: MICHAEL Buspirone HCl (Buspirone Hcl 5 Mg Tablet) 5 mg PO TID [facility] Last Admin: 08/05/22 14:34 Dose: 5 mg Documented By: RYLAN Docusate Sodium (Docusate Sodium 100 Mg Capsule) 100 mg PO BID [facility] Last Admin: 08/06/22 07:38 Dose: 100 mg Documented By: MICHAEL Escitalopram Oxalate (Escitalopram Oxalate 5 Mg Tablet) 15 mg PO DAILY [facility] Last Admin: 08/06/22 07:38 Dose: 15 mg Documented By: MICHAEL Finasteride (Finasteride 5 Mg Tablet) 5 mg PO DAILY [facility] Last Admin: 08/06/22 07:36 Dose: 5 mg Documented By: MICHAEL Piperacillin Sod/Tazobactam (Sod 3.375 gm/ Sodium Chloride) 50 mls @ 100 mls/hr IV Q6H [facility] Last Infusion: 08/06/22 08:34 Dose: 0 mls/hr Documented By: MICHAEL Promethazine HCl 12.5 mg/ (Sodium Chloride) 50.5 mls @ 202 mls/hr IV Q6H PRN PRN Reason: Nausea Last Infusion: 08/05/22 10:03 Dose: 0 mls/hr Documented By: RYLAN Magnesium Sulfate 10 meq/Potassium Phosphate 30 mmol/Calcium Gluconate 9.3 meq/Potassium Acetate 20 meq/Multivitamins 10 ml/ Trace Metals 1 ml/ Amino Acids/Electrolytes/Dextrose 1,320 mls @ 55 mls/hr IVCONT DAILY@1800 [facility] Last Admin: 08/05/22 17:27 Dose: 55 mls/hr Documented By: RYLAN Dextrose/Sodium Chloride (D51/2ns) 1,000 mls @ 50 mls/hr IVCONT .Q20H [facility] Last Admin: 08/06/22 03:27 Dose: 50 mls/hr Documented By: AGUSTIN Lisinopril (Lisinopril 20 Mg Tablet) 20 mg PO DAILY [facility]; Protocol Last Admin: 08/06/22 07:39 Dose: 20 mg Documented By: MICHAEL Lorazepam (Lorazepam 2 Mg/Ml Vial) 0.5 mg IVPUSH Q6H PRN PRN Reason: Anxiety Last Admin: 08/02/22 14:43 Dose: 0.5 mg Documented By: ZARI Mirtazapine (Mirtazapine 30 Mg Tablet) 30 mg PO BEDTIME [facility] Last Admin: 08/04/22 20:48 Dose: Not Given Documented By: SALLY Non-Admin Reason: Patient Refused Morphine Sulfate (Morphine Sulfate 4 Mg/Ml Cartridge) 2 mg IVPUSH Q4H PRN; Protocol PRN Reason: Pain, Severe (Pain Scale 7-10) Last Admin: 08/06/22 08:30 Dose: 2 mg Documented By: MICHAEL Ondansetron HCl (Ondansetron Hcl 4 Mg/2 Ml Vial) 4 mg IVPUSH Q6H PRN PRN Reason: nausea Last Admin: 08/06/22 09:36 Dose: 4 mg Documented By: MICHAEL Pharmacy Consult (Consult Rx Perform Med Rec) 1 each MISCELLANE ONCE PRN PRN Reason: Consult order Polyethylene Glycol (Polyethylene Glycol 3350 17 Gm Powd.Pack) 17 gm PO DAILY [facility] Last Admin: 08/06/22 08:33 Dose: 17 gm Documented By: MICHAEL Psyllium Hydrophilic Mucilloid (Psyllium Seed 3.4 Gm Powd.Pack) 3.4 gm PO DAILY [facility] Last Admin: 08/06/22 08:33 Dose: 3.4 gm Documented By: MICHAEL Sodium Chloride (0.9 % Sodium Chloride Flush 3 Ml Syringe) 3 ml IVFLUSH QSHIFT [facility] Last Admin: 08/06/22 07:38 Dose: Not Given Documented By: MICHAEL Non-Admin Reason: IV Running Topiramate (Topiramate 25 Mg Tablet) 50 mg PO BEDTIME [facility] Last Admin: 08/05/22 21:12 Dose: 50 mg Documented By: AGUSTIN Labs 08/03/22 07:31 08/05/22 18:04 Labs: Laboratory Results - last 24 hr 08/05/22 08/05/22 08/05/22 09:57 09:57 09:57 Anion Gap 15 Cancelled Estim Creat Clear Calc 117.8 Cancelled Estimated GFR > 60 Cancelled Random Glucose 206 H Cancelled Calcium 9.4 Cancelled Phosphorus 3.1 Cancelled Magnesium 2.3 Cancelled Troponin I High Sens 13.9 D Albumin 3.1 L Cancelled 08/05/22 18:04 Anion Gap 15 Estim Creat Clear Calc 118.9 Estimated GFR > 60 Random Glucose 211 H Calcium 9.0 Phosphorus Magnesium Troponin I High Sens Albumin Assessment and Plan (1) Atrial fibrillation: Status: Acute (2) Hypertension: Status: Acute Plan 47 year old admitted by general surgery for acute appendicitis acute Appendicitis s/p open appendectomy 07/31 Developed post-op ileus, NGT tube, now dc'd. Diet advanced continue pain management continue zosyn management per surgical team Sinus bradycardia- asymptomatic- improving- likely medication related and r/t inactivity EKG showing sinus clifford, rate 38 with t wave inversions V1, V2, V4, V5 Lytes normal except hypernatremia 152, started on D5 1/2 NS. Repeat BMP ordered. TSH and Trops normal Not on any AV etienne blockers Remeron and buspar held. 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 BMI 39.7 Discussed importance of weight management as this may be contributing to worsening of other comorbidities DVT prophylaxis with heparin - resume eliquis when safe from medical perspective Attending Dr. Barney Thank you for allowing us to participate in the care of this patient. we will follow along with you Time Spent With Patient Time: Total time managing care of this patient today ____ minutes. Quality Stroke Does the patient have a stroke diagnosis?: No VTE Prior VTE?: No VTE Risk Level:: Medical - moderate - high VTE Device Contraindication: N/A - Device Ordered VTE Drug Contraindication: N/A - Med Ordered
--- NOTE | 2022-08-06 09:58 | PM.PNCARD ---
Subjective Subjective Date of Service: 08/06/22 Interval history: No cardiac complaints. States feeling okay. Review of Systems Review of Systems Yes all other systems are reviewed and are negative Constitutional: Reports as per HPI and Reports no additional constitutional complaints Eyes: Reports as per HPI and Denies no additional eye complaints Denies system reviewed and no additional complaints, except as documented and Reports as per HPI Cardiovascular: Reports as per HPI, Reports no additional cardiovascular complaints, Denies acrocyanosis, Denies cool extremities, Denies chest pain, Denies leg edema, Denies lightheadedness, Denies palpitations and Denies dyspnea Respiratory: Reports as per HPI, Denies no additional respiratory complaints and Denies dyspnea Gastrointestinal: Reports as per HPI and Denies no additional gastrointestinal complaints Genitourinary: Reports no additional male genitourinary complaints and Reports as per HPI Musculoskeletal: Reports no additional musculoskeletal complaints and Reports as per HPI Skin/Breast: Reports system reviewed and no additional complaints, except as docu Reports system reviewed and no additional complaints, except as documented and Reports as per HPI Psychiatric: Reports no additional psychiatric complaints and Reports as per HPI Endocrine: Reports no additional endocrine complaints, Reports as per HPI and Denies palpitations Hematologic/Lymphatic: Reports no additional hematologic/lymphatic complaints and Reports as per HPI Allergic/Immunologic: Reports no additional allergic/immunologic complaints and Reports as per HPI Physical Exam Vital Signs: Last Vital Signs Temp 98.3 F 08/06/22 07:31 Pulse 49 L 08/06/22 07:31 Resp 16 08/06/22 07:31 BP 164/77 H 08/06/22 07:31 Pulse Ox 98 08/06/22 07:31 O2 Del Method Room Air 08/06/22 07:31 O2 Flow Rate 2.0 08/01/22 11:48 BMI result Body Mass Index 39.7 Const General: comfortable and no acute distress Orientation/consciousness: patient oriented x3 HEENT Other: Unremarkable Head: Yes normal to inspection Neck Neck: Yes normal visual inspection Chest Chest palpation & inspection: normal inspection of the chest Resp Auscultation: clear to auscultation bilaterally Cardio Palpation: normal PMI Heart sounds: S1 normal heart sound present, S2 normal heart sound present, no gallops, no murmurs and no rubs GI Palpation (GI): Soft to palpation Back/Spine/Pelvis Other: unremarkable Skin General skin exam: no rashes or lesions noted Neuro General: patient oriented x3 Extrem General: Yes normal to inspection Psych Mental Status: mental status grossly normal Objective Labs and Meds 08/03/22 07:31 08/05/22 18:04 Lab results: Laboratory Results - last 24 hr 08/05/22 08/05/22 08/05/22 09:57 09:57 09:57 Sodium 152 H Cancelled Potassium 3.4 Cancelled Chloride 114 H Cancelled Carbon Dioxide 26 Cancelled Anion Gap 15 Cancelled BUN 25 H Cancelled Creatinine 1.05 Cancelled Estim Creat Clear Calc 117.8 Cancelled Estimated GFR > 60 Cancelled Random Glucose 206 H Cancelled Calcium 9.4 Cancelled Phosphorus 3.1 Cancelled Magnesium 2.3 Cancelled Troponin I High Sens 13.9 D Albumin 3.1 L Cancelled 08/05/22 18:04 Sodium 150 H Potassium 3.8 Chloride 115 H Carbon Dioxide 24 Anion Gap 15 BUN 21 H Creatinine 1.04 Estim Creat Clear Calc 118.9 Estimated GFR > 60 Random Glucose 211 H Calcium 9.0 Phosphorus Magnesium Troponin I High Sens Albumin Progress Note: A&P Assessment and plan (1) Sinus bradycardia: Status: Acute (2) Abnormal EKG: Status: Acute (3) S/P appendectomy: Status: Acute (4) S/P ablation of atrial fibrillation: Status: Acute (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 Sinus bradycardia with some improvement. Now more so in the 50s. Patient has absolutely no symptoms from cardiac standpoint. Bradycardia possibly related to pain as well as pain medications. These are being cut back. Regarding psychotropic medications, use only the most essential once. May remain on telemetry. Otherwise, no specific management from cardiac. Time Spent With Patient Time: Total time managing care of this patient today ____ minutes. Progress Note: Quality Stroke Does the patient have a stroke diagnosis?: No Procedures Date of Service Date of Service: 08/06/22
--- NOTE | 2022-08-06 10:01 | MHC.CLN ---
F/U PT'S DIET ADVANCED TO BLAND NG TUBE REMOVED YESTERDAY NO N/V PPN TO D/C PER MD MONITOR PO INTAKE CLOSELY
[2022-08-06 10:42] LABS: Anion Gap 11 (12-20); Blood Urea Nitrogen 15 mg/dL (9-16); Calcium 8.9 mg/dL (8.4-10.2); Carbon Dioxide 25 mmol/L (22-29); Chloride 112 mmol/L (96-108); Estimated Glomerular Filt Rate > 60; Glucose Random 179 mg/dL (60-115); Potassium 3.3 mmol/L (3.3-5.1); Sodium 145 mmol/L (135-145)
[2022-08-06 11:47] VITALS: BP 130/72; PULSE 77; RESP 18; TEMP 36.6; O2SAT 97
[2022-08-06] MEDS: 0.9 % Sodium Chloride Flush 3 ML SYRINGE IVFLUSH ×2 (14:26→20:40)
[2022-08-06 15:49] VITALS: BP 163/99; PULSE 99; RESP 18; TEMP 36; O2SAT 98
[2022-08-06 19:44] VITALS: BP 154/91; PULSE 77; RESP 18; TEMP 36; O2SAT 97
[2022-08-06] MEDS: Topiramate 25 MG TABLET 50 MG PO (20:39)
[2022-08-07] MEDS: ondansetron HCL 4 MG/2 ML VIAL IVPUSH (02:45)
[2022-08-07] MEDS: Piperacillin Sodium/Tazobactam 3.375 GM in 0.9 % Sodium Chloride 50 ML IV (02:45)
[2022-08-07 03:36] VITALS: BP 166/88; PULSE 56; RESP 16; TEMP 36.1; O2SAT 100
[2022-08-07 05:59] LABS: Anion Gap 12 (12-20); Blood Urea Nitrogen 11 mg/dL (9-16); Calcium 8.5 mg/dL (8.4-10.2); Carbon Dioxide 23 mmol/L (22-29); Chloride 110 mmol/L (96-108); Creatinine Clr Calc Pharmacy 167.1; Estimated Glomerular Filt Rate > 60; Glucose Random 136 mg/dL (60-115); Potassium 3.3 mmol/L (3.3-5.1); Sodium 142 mmol/L (135-145)
[2022-08-07 07:34] VITALS: BP 165/87; PULSE 53; RESP 16; TEMP 36.6; O2SAT 98
[2022-08-07 07:40] VITALS: BP 165/87; PULSE 53; RESP 16; TEMP 36.6; O2SAT 98
--- NOTE | 2022-08-07 08:15 | PM.PNGS ---
Subjective Subjective Date of Service: 08/07/22 Interval history: Continues to feel well Has good BMs and flatus Tolerating diet Pain well controlled Heart rate better Physical Exam Vital Signs: Vital Signs: Last Vital Signs Temp 97.8 F 08/07/22 07:40 Pulse 53 08/07/22 07:40 Resp 16 08/07/22 07:40 BP 165/87 H 08/07/22 07:40 Pulse Ox 98 08/07/22 07:40 O2 Del Method Room Air 08/07/22 07:40 O2 Flow Rate 2.0 08/01/22 11:48 BMI result Body Mass Index 39.7 Const: General: comfortable and no acute distress Resp: Effort & Inspection: normal respiratory effort Cardio: Rhythm: regular rhythm GI: Other: Incisions clean and dry, CAROLINA drain with scanty sero sanguinous output Palpation (GI): Soft to palpation, not firm and no guarding Objective Data Active Medications Apixaban (Apixaban 5 Mg Tablet) 5 mg PO BID [facility] Last Admin: 08/06/22 20:39 Dose: 5 mg Documented By: KWAME Buspirone HCl (Buspirone Hcl 5 Mg Tablet) 5 mg PO TID [facility] Last Admin: 08/05/22 14:34 Dose: 5 mg Documented By: RYLAN Docusate Sodium (Docusate Sodium 100 Mg Capsule) 100 mg PO BID [facility] Last Admin: 08/06/22 20:39 Dose: 100 mg Documented By: KWAME Escitalopram Oxalate (Escitalopram Oxalate 5 Mg Tablet) 15 mg PO DAILY [facility] Last Admin: 08/06/22 07:38 Dose: 15 mg Documented By: MICHAEL Finasteride (Finasteride 5 Mg Tablet) 5 mg PO DAILY [facility] Last Admin: 08/06/22 07:36 Dose: 5 mg Documented By: MICHAEL Piperacillin Sod/Tazobactam (Sod 3.375 gm/ Sodium Chloride) 50 mls @ 100 mls/hr IV Q6H [facility] Last Infusion: 08/07/22 03:19 Dose: 0 mls/hr Documented By: KWAME Promethazine HCl 12.5 mg/ (Sodium Chloride) 50.5 mls @ 202 mls/hr IV Q6H PRN PRN Reason: Nausea Last Infusion: 08/05/22 10:03 Dose: 0 mls/hr Documented By: RYLAN Magnesium Sulfate 10 meq/Potassium Phosphate 30 mmol/Calcium Gluconate 9.3 meq/Potassium Acetate 20 meq/Multivitamins 10 ml/ Trace Metals 1 ml/ Amino Acids/Electrolytes/Dextrose 1,320 mls @ 55 mls/hr IVCONT DAILY@1800 [facility] Last Admin: 08/06/22 17:28 Dose: Not Given Documented By: MICHAEL Non-Admin Reason: Patient Refused Lisinopril (Lisinopril 20 Mg Tablet) 20 mg PO DAILY [facility]; Protocol Last Admin: 08/06/22 07:39 Dose: 20 mg Documented By: MICHAEL Lorazepam (Lorazepam 2 Mg/Ml Vial) 0.5 mg IVPUSH Q6H PRN PRN Reason: Anxiety Last Admin: 08/02/22 14:43 Dose: 0.5 mg Documented By: ZARI Mirtazapine (Mirtazapine 30 Mg Tablet) 30 mg PO BEDTIME [facility] Last Admin: 08/04/22 20:48 Dose: Not Given Documented By: SALLY Non-Admin Reason: Patient Refused Morphine Sulfate (Morphine Sulfate 4 Mg/Ml Cartridge) 2 mg IVPUSH Q4H PRN; Protocol PRN Reason: Pain, Severe (Pain Scale 7-10) Last Admin: 08/06/22 08:30 Dose: 2 mg Documented By: MICHAEL Ondansetron HCl (Ondansetron Hcl 4 Mg/2 Ml Vial) 4 mg IVPUSH Q6H PRN PRN Reason: nausea Last Admin: 08/07/22 02:45 Dose: 4 mg Documented By: KWAME Pharmacy Consult (Consult Rx Perform Med Rec) 1 each MISCELLANE ONCE PRN PRN Reason: Consult order Polyethylene Glycol (Polyethylene Glycol 3350 17 Gm Powd.Pack) 17 gm PO DAILY [facility] Last Admin: 08/06/22 08:33 Dose: 17 gm Documented By: MICHAEL Psyllium Hydrophilic Mucilloid (Psyllium Seed 3.4 Gm Powd.Pack) 3.4 gm PO DAILY [facility] Last Admin: 08/06/22 08:33 Dose: 3.4 gm Documented By: MICHAEL Sodium Chloride (0.9 % Sodium Chloride Flush 3 Ml Syringe) 3 ml IVFLUSH QSHIFT [facility] Last Admin: 08/06/22 20:40 Dose: 3 ml Documented By: KWAME Topiramate (Topiramate 25 Mg Tablet) 50 mg PO BEDTIME [facility] Last Admin: 08/06/22 20:39 Dose: 50 mg Documented By: KWAME Labs 08/03/22 07:31 08/07/22 05:01 Labs: Laboratory Results - last 24 hr 08/06/22 08/06/22 08/07/22 09:54 09:54 05:01 Anion Gap 11 L Cancelled 12 Estim Creat Clear Calc 149.0 Cancelled 167.1 Estimated GFR > 60 Cancelled > 60 Random Glucose 179 H Cancelled 136 H Calcium 8.9 Cancelled 8.5 Procedures Date of Service Date of Service: 08/07/22 Progress Note: A&P Assessment and plan (1) Acute appendicitis: Status: Acute Assessment and Plan: Doing very well Good GI function No fever Comfortable CAROLINA discontinued Okay to DC home on p.o. Augmentin for 3 more days Discussed with hospitalist service Discussed instructions with patient in detail She needs to follow-up with her primary care physician as well in view of multiple medical problems Time Spent With Patient Time: Total time managing care of this patient today ____ minutes. Quality Stroke Does the patient have a stroke diagnosis?: No VTE Prior VTE?: No VTE Risk Level:: Medical - moderate - high VTE Device Contraindication: N/A - Device Ordered VTE Drug Contraindication: N/A - Med Ordered
--- NOTE | 2022-08-07 08:20 | PM.DS ---
DS: Providers Provider Date of Service: 08/07/22 Date of admission: 07/30/22 20:07 Date of discharge: 08/07/22 Primary care physician: Cherie Benítez MD Consults: 07/30/22 21:30 Consult to Hospitalist Routine Comment: Consulting Provider: Hospitalist Reason For Exam: a fib, CHF, HTN 08/05/22 08:23 Consult to Cardiology Routine Consulting Provider: [facility] Reason for consultation: bradycardia, t wave inversions (asymptoamtic) DS: Diagnosis Discharge Diagnosis (1) Acute appendicitis: Status: Acute DS: Summary Hospital Course Hospital Course: [age] year male identifying as female, admitted ER on 07/30/2022 for abdominal pain. She had a CAT scan showing marked inflammatory changes surrounding the appendix, with some abscesses, phlegmonous changes. She was admitted for IV antibiotics and was closely monitored. She did not feel that her pain was improving although she did remain stable and afebrile. She was brought to the operating room on 07/31/2022 and had undergone an attempted laparoscopic appendectomy converted to an open appendectomy via midline incision because of severe inflammatory changes surrounding the area of the appendix. A [place] drain was also left in place on the right gutter. She was kept on Zosyn. She was on clear liquids which she tolerated. However on August 01, she had vomiting with a KUB showing findings suggestive of ileus. An NG tube was placed. She remained stable and did to pass flatus. Her NG tube was removed on August 04, 2022. She was restarted on on clear liquids which she tolerated and her diet was advanced. She continue have good GI functions. Her CAR[place] drain did not have any significant output so this was removed She had multiple medical problems including CHF and atrial fibrillation. Eliquis was held temporarily but this had been restarted. The hospitalist service had been following her for multiple medical problems. The patient also had bradycardia in the 40s although was asymptomatic. Cardiology had seen her as well and was felt that this was secondary to psychotropic medications as well as pain medications. She remained stable throughout the rest of her hospital stay. On the day of her discharge on August 07, 2022, she was tolerating regular diet. She had remained afebrile. She had good GI function. She was given wound care instructions and follow-up instructions as well. Time Spent with Patient Time attestation: Total time managing care of this patient today ____ minutes. Discharge coordination time: Less than 30 minutes Quality: Safe Use of Opioids Does Pt have an Active Cancer Diagnosis on the Problem List?: No Quality: Stroke Does the patient have a stroke diagnosis?: No Physical Exam Vital Signs: Vital Signs: Last Vital Signs Temp 97.8 F 08/07/22 07:40 Pulse 53 08/07/22 07:40 Resp 16 08/07/22 07:40 BP 165/87 H 08/07/22 07:40 Pulse Ox 98 08/07/22 07:40 O2 Del Method Room Air 08/07/22 07:40 O2 Flow Rate 2.0 08/01/22 11:48 BMI result Body Mass Index 39.7 Const: Other: Morbidly obese General: comfortable and no acute distress Orientation/consciousness: patient oriented x3 Neck: Neck: Yes no lymphadenopathy Resp: Auscultation: clear to auscultation bilaterally Cardio: Rhythm: regular rhythm GI: Other: Incisions clean and dry Palpation (GI): Soft to palpation, nontender and no guarding Neuro: General: patient oriented x3 DS: Data Data Completed and Pending Completed studies during hospitalization [Text1]: Pending at discharge 07/31/22 14:51 Surgical [PTH] Routine Laboratory Results WBC 9.8 X10*3/uL (4.8-10.8) 08/03/22 07:31 RBC 3.85 X10*6/uL (4.60-5.80) L 08/03/22 07:31 Hgb 12.5 g/dl (14.0-18.0) L 08/03/22 07:31 Hct 38.7 % (42.0-52.0) L 08/03/22 07:31 MCV 100.5 fL (80.0-98.0) H 08/03/22 07:31 MCH 32.5 pg (27.0-33.0) 08/03/22 07:31 MCHC 32.3 g/dl (31.0-36.0) 08/03/22 07:31 RDW 13.9 % (11.0-16.0) 08/03/22 07:31 Plt Count 364 X10*3/uL (160-400) D 08/03/22 07:31 MPV 10.4 fL (9.4-12.4) 08/03/22 07:31 Immature Gran % (Auto) 0.4 % (0.0-0.4) 07/30/22 14:04 Neut % (Auto) 62.4 % (45-73) 07/30/22 14:04 Lymph % (Auto) 25.0 % (20-40) 07/30/22 14:04 [place] % (Auto) 9.5 % (2-11) 07/30/22 14:04 Eos % (Auto) 2.1 % (0-4) 07/30/22 14:04 Baso % (Auto) 0.6 % (0-2) 07/30/22 14:04 Lymph # (Auto) 2.3 X10*3/uL (1.2-4.9) 07/30/22 14:04 [place] # (Auto) 0.9 X10*3/uL (0.1-1.2) 07/30/22 14:04 Eos # (Auto) 0.2 X10*3/uL (0.0-0.4) 07/30/22 14:04 Baso # (Auto) 0.1 X10*3/uL (0.0-0.2) 07/30/22 14:04 Abs Immat Gran (auto) 0.04 X10*3/uL (0.00-0.03) H 07/30/22 14:04 Absolute Neuts (auto) 5.8 x10*3/uL (2.0-8.3) 07/30/22 14:04 Absolute Nucleated RBC 0.000 X10*3/uL (0.0-0.012) 08/03/22 07:31 Nucleated RBC % (auto) 0.0 /100WBC (0.0-0.2) 08/03/22 07:31 PT 12.4 SEC (10.0-13.1) 07/30/22 14:04 INR 1.1 (0.9-1.1) 07/30/22 14:04 Sodium 142 mmol/L (135-145) 08/07/22 05:01 Potassium 3.3 mmol/L (3.3-5.1) 08/07/22 05:01 Chloride 110 mmol/L (96-108) H 08/07/22 05:01 Carbon Dioxide 23 mmol/L (22-29) 08/07/22 05:01 Anion Gap 12 (12-20) 08/07/22 05:01 BUN 11 mg/dL (9-16) 08/07/22 05:01 Creatinine 0.74 mg/dL (0.5-1.4) 08/07/22 05:01 Estim Creat Clear Calc 167.1 08/07/22 05:01 Estimated GFR > 60 08/07/22 05:01 Random Glucose 136 mg/dL (60-115) H 08/07/22 05:01 Lactic Acid 1.6 mmol/L (0.5-2.0) 07/30/22 21:34 Calcium 8.5 mg/dL (8.4-10.2) 08/07/22 05:01 Phosphorus 3.1 mg/dL (2.7-4.5) 08/05/22 09:57 Phosphorus Cancelled 08/05/22 09:57 Magnesium 2.3 mg/dL (1.6-2.6) 08/05/22 09:57 Magnesium Cancelled 08/05/22 09:57 Total Bilirubin 0.4 mg/dL (0.0-1.0) 08/04/22 06:55 Direct Bilirubin 0.1 mg/dL (0.0-0.5) 08/04/22 06:55 AST 50 U/L (5-37) H 08/04/22 06:55 ALT 41 U/L (0-40) H 08/04/22 06:55 Alkaline Phosphatase 58 U/L (39-117) 08/04/22 06:55 Troponin I High Sens 13.9 ng/L (<3.5-35.0) D 08/05/22 09:57 Total Protein 6.5 g/dL (6.5-8.0) 08/04/22 06:55 Albumin 3.1 g/dL (3.5-5.0) L 08/05/22 09:57 Albumin Cancelled 08/05/22 09:57 Lipase 16 U/L (8-78) 07/30/22 14:04 TSH 1.54 uIU/mL (0.32-4.0) 08/05/22 08:38 Urine Color Yellow 07/30/22 21:34 Urine Appearance Clear 07/30/22 21:34 Urine pH 6.0 (5.0-9.0) 07/30/22 21:34 Ur Specific [place] >= 1.030 (1.005-1.025) H 07/30/22 21:34 Urine Protein Negative mg/dL (Neg-Trace) 07/30/22 21:34 Urine Glucose (UA) Negative mg/dL (Negative) 07/30/22 21: Urine Ketones Negative mg/dL (Negative) 07/30/22 21:34 Urine Blood Negative (Negative) 07/30/22 21: Urine Nitrite Negative (Negative) 07/30/22 21:34 Ur Leukocyte Esterase Negative (Negative) 07/30/22 21:34 Impressions Abdomen/Pelvis CT 07/30/22 18:53 IMPRESSION: Acute appendicitis with extensive inflammatory changes in the right lower quadrant. Small periappendiceal air pockets questionable for contained perforation versus small abscesses. No evidence of free air. Constipation. Probable posttraumatic changes to the spleen. Enlarged fatty liver. Findings were communicated to Tana EVANS by telephone on 07/30/2022 at 1951 hours Fleischner guidelines were followed. KUB X-Ray 08/02/22 15:17 IMPRESSION: Generalized ileus. Chest X-Ray 08/02/22 16:10 IMPRESSION: Satisfactory position of nasogastric Labs on day of discharge: Laboratory Results - last 24 hr 08/06/22 08/06/22 08/07/22 09:54 09:54 05:01 Sodium 145 Cancelled 142 Potassium 3.3 Cancelled 3.3 Chloride 112 H Cancelled 110 H Carbon Dioxide 25 Cancelled 23 Anion Gap 11 L Cancelled 12 BUN 15 Cancelled 11 Creatinine 0.83 Cancelled 0.74 Estim Creat Clear Calc 149.0 Cancelled 167.1 Estimated GFR > 60 Cancelled > 60 Random Glucose 179 H Cancelled 136 H Calcium 8.9 Cancelled 8.5 Discharge Plan Discharge Anticipated Discharge Date/Time: 08/07/22 08:10 Patient Disposition: Home Health Service Discharge Diagnosis: Acute appendicitis with abscesses, phlegmon Referrals: [facility] [Other] - 1 Week Cherie Benítez MD [Primary Care Provider] - 1 Week Jakob Schultz MD [Physician] - 2 Weeks Discharge Medications: Continued cyclobenzaprine 10 mg tablet 10 mg PO BID PRN (Reason: muscle spasm) buspirone 5 mg tablet 5 mg PO TID sennosides [senna] 8.6 mg tablet 8.6 mg PO BID lisinopril 20 mg tablet 20 mg PO DAILY mirtazapine 30 mg tablet 30 mg PO BEDTIME docusate sodium 100 mg capsule 100 mg PO BID estradiol 0.1 mg/24 hr Patch Weekly 3 patch TRANSDERMAL Q72H finasteride 5 mg tablet 5 mg PO DAILY escitalopram oxalate 10 mg tablet 15 mg PO DAILY atomoxetine [Strattera] 60 mg capsule 60 mg PO DAILY topiramate 50 mg tablet 50 mg PO BEDTIME Eliquis 5 mg tablet 5 mg PO BID Discontinued oxycodone-acetaminophen [Percocet] 5-325 mg tablet 1 tab PO Q4-6H PRN (Reason: pain) Qty: 10 0RF Rx Instructions: Partial Fill upon patient request. No Action amoxicillin-pot clavulanate 875-125 mg tablet 1 tab PO BID Qty: 6 0RF ondansetron 8 mg tablet,disintegrating 8 mg PO Q8H PRN (Reason: nausea and vomiting) Qty: 10 0RF oxycodone-acetaminophen [Percocet] 5-325 mg tablet 1 tab PO Q4-6H PRN (Reason: pain) Qty: 10 0RF Rx Instructions: Partial Fill upon patient request. Discharge Orders: Discharge Order (Routine); Ordered 08/07/22 Ordered By: Jakob Schultz Diet: Advance to usual diet Activity on Discharge: No heavy lifting Stand Alone Forms: Patient Portal Discharge page Activity Restrictions/Additional Instructions: If the incision area is tender, you may apply an ice pack for short intervals (No more than 20 minutes on, followed by at least 20 minutes off). Do not apply heat. Do not use creams, lotions, or topical antibiotics unless instructed to do so by your surgeon. These can cause infection or allergic reaction. No lifting more than 20 lbs Okay to shower after 24 hours Okay to change dressings with gauze daily No strenuous activities Call the office for follow-up in 2 weeks - with Dr. Schultz You need to follow-up with her primary care physician within next 1-2 weeks Call Your Doctor If: -Your temperature exceeds 101.5? F -You experience excessive pain or swelling -You have an unexpected reaction to medication -You have excessive bleeding -You experience continued vomiting/nausea -Your incision begins to separate -Your incision shows signs of infection such as increased redness, swelling, excessive pain, drainage (light blood or clear fluid is normal) or heat Care Plan Goals: Pain management Oral antibiotics for 3 more days Health Concerns: Recent appendicitis CHF AFib History of drug abuse Plan of Treatment: Oral pain meds as needed Oral antibiotics Follow-up in the office She needs to follow-up with her primary care physician as well Low Heart rate -heart rate low during admission, likely secondary to inactivity and medications (pain and psychiatric) -Be sure to walk and remain active -Resume remeron on discharge and continue topamax and lexapro. Continue holding buspar. Resume at discretion of pcp if heart rate remains stable -Use pain medications only as needed Assessment: Doing very well Discharge Date/Time: 08/07/22 11:34
[2022-08-07] MEDS: lisinopriL 20 MG TABLET PO (08:36)
[2022-08-07] MEDS: Apixaban 5 MG TABLET PO (08:36)
[2022-08-07] MEDS: Escitalopram Oxalate 5 MG TABLET 15 MG PO (08:36)
[2022-08-07] MEDS: Finasteride 5 MG TABLET PO (08:36)
[2022-08-07] MEDS: Docusate Sodium 100 MG CAPSULE PO (08:36)
[2022-08-07] MEDS: polyethylene glycoL 3350 17 GM POWD.PACK PO (08:37)
[2022-08-07] MEDS: 0.9 % Sodium Chloride Flush 3 ML SYRINGE IVFLUSH (08:37)
--- NOTE | 2022-08-07 08:48 | MHC.CM.PN ---
pt dcd home with resumption of [facility] orders faxed
--- NOTE | 2022-08-07 09:09 | MHC.CM.PN ---
[facility] back to [facility] he will arrange own transportaion [facility] notified of dc orderes faxed
--- NOTE | 2022-08-07 15:09 | MHC.CM.PN ---
received call from [facility] who says thats pt scripts went to a closed pharmacey t/w requested dr rehman resend the scripts to [facility]
== END 2022-08-07 11:34 | disposition home health service (06) | DRG 339 ==
LOC: HO.ED 20:06 → HO.EDOVER 20:17 → HO.S3 21:38
PROVIDERS: Physician Assistant; Physician Assistant Medical; Registered Nurse Emergency; Admitting Provider Surgery; Emergency Provider Emergency Medicine; PCP Internal Medicine; Visit Provider Surgery
PROC: 0DTJ4ZZ Resection of Appendix, Percutaneous Endoscopic Approach (ICD-10-PCS; CPT 44970; principal; 2022-07-31 12:00)
DX: K35.33 Acute appendicitis with perforation, localized peritonitis, and gangrene, with abscess (principal); E87.0 Hyperosmolality and hypernatremia; K56.7 Ileus, unspecified; R00.1 Bradycardia, unspecified; F11.11 Opioid abuse, in remission; F32.A Depression, unspecified; Z68.39 Body mass index [BMI] 39.0-39.9, adult; I48.0 Paroxysmal atrial fibrillation; F15.11 Other stimulant abuse, in remission; E66.01 Morbid (severe) obesity due to excess calories; I10 Essential (primary) hypertension; Z79.01 Long term (current) use of anticoagulants; Z79.899 Other long term (current) drug therapy
CPT/HCPCS: 36415; 71045; 74018; 74177; 80048; 80076; 81003; 82040; 83605; 83690; 83735; 84100; 84443; 84484; 85025; 85027; 85610; 87040; 88304; 93005; 97116; 97161; 99285; C1758; J0131; J0612; J1170; J1643; J2060; J2250; J2270; J2370; J2405; J2543; J2550; J3010; J3475; Q9967

== ENCOUNTER → 2022-08-08 14:10 | Outpatient (BNVA) | payer MEDICARE, MEDICAID, SELFPAY | PROVIDERS: PCP Internal Medicine; Visit Provider Surgery | DX: Z48.815 Encounter for surgical aftercare following surgery on the digestive system (principal); Z90.49 Acquired absence of other specified parts of digestive tract | CPT/HCPCS: 99212 ==

== ENCOUNTER 2022-08-11 23:13 | Emergency (ER) | payer MEDICARE, MEDICAID, SELFPAY ==
[2022-08-11 23:34] VITALS: BP 112/70; PULSE 101; O2SAT 96
--- NOTE | 2022-08-11 23:38 | ED_ITS ---
HPI - Psych General Chief Complaint: General Medical Stated Complaint: ABD PAIN EARLIER,PSYCH TONIGHT FROM [facility] Time Seen by Provider: 08/11/22 23:38 Source: patient and EMS Mode of arrival: EMS Limitations: no limitations History of Present Illness HPI Narrative: Patient 39 it is sore transgender male to female with history of CHF, AFib status post ablation, substance abuse heroin and meth, s/p appendectomy on 07/31 was seen at [facility] yesterday for D since of surgical wound after fall yesterday. Comes here as patient was very agitated cutting her clothes and complaining abdominal pain by the time patient came here pain has improved denies any SI or HI or hallucinations says that staff was very upset that is when she was angry and abdominal pain is fine it was at the site of the surgery and already been evaluated at [facility] yesterday Related Data Home Medications Medication Instructions Recorded Confirmed apixaban 5 mg tablet (Eliquis) 5 mg PO BID 07/30/22 08/08/22 atomoxetine 60 mg capsule 60 mg PO DAILY 07/30/22 08/08/22 (Strattera) buspirone 5 mg tablet 5 mg PO TID 07/30/22 08/08/22 cyclobenzaprine 10 mg tablet 10 mg PO BID PRN muscle spasm 07/30/22 08/08/22 docusate sodium 100 mg capsule 100 mg PO BID 07/30/22 08/08/22 escitalopram oxalate 10 mg tablet 15 mg PO DAILY 07/30/22 08/08/22 estradiol 0.1 mg/24 hr weekly 3 patch transdermal Q72H 07/30/22 08/08/22 transdermal patch finasteride 5 mg tablet 5 mg PO DAILY 07/30/22 08/08/22 lisinopril 20 mg tablet 20 mg PO DAILY 07/30/22 08/08/22 mirtazapine 30 mg tablet 30 mg PO BEDTIME 07/30/22 08/08/22 sennosides 8.6 mg tablet (senna) 8.6 mg PO BID 07/30/22 08/08/22 topiramate 50 mg tablet 50 mg PO BEDTIME 07/30/22 08/08/22 Previous Rx's Medication Instructions Recorded amoxicillin 875 mg-potassium 1 tab PO BID #6 tabs 08/07/22 clavulanate 125 mg tablet ondansetron 8 mg disintegrating 8 mg PO Q8H PRN nausea and 08/07/22 tablet vomiting #10 tabs oxycodone-acetaminophen 5 mg-325 1 tab PO Q4-6H PRN pain #10 tabs 08/07/22 mg tablet (Percocet) Allergies Allergy/AdvReac Type Severity Reaction Status Date / Time cephalexin Allergy Mild Hives Verified 08/08/22 14:24 Review of Systems Review of Systems: Yes all other systems are reviewed and are negative [facility] Past Medical History Medical History Atrial fibrillation CHF (congestive heart failure) Depression Drug abuse in remission Hypertension Obesity Surgical History S/P ablation of atrial fibrillation Status post laparoscopic cholecystectomy Status post laparoscopic procedure Family History Family History Mother Angina pectoris Social History Social History Household Members: Other Housing: Other Housing Other:: longterm Do you presently have visiting nurse or other home services: Yes Alcohol intake: never Patient Tobacco Use Status: Never used Tobacco Substance Use Type: Methamphetamine Advance Directives: No Advance Directives Information Provided: Yes service: No Current occupational status: unemployed Physical Exam Vital Signs: Vital Signs: Last Vital Signs Temp 97.9 F 08/11/22 23:39 Pulse 100 08/11/22 23:39 Resp 18 08/11/22 23:39 BP 135/84 08/11/22 23:39 Pulse Ox 97 08/11/22 23:39 O2 Del Method Room Air 08/11/22 23:39 BMI result Body Mass Index 37.0 Appearance: Alert. Oriented X3. No acute distress. Eyes: PERRLA, No Nystagmus ENT: Pharynx normal. Oral Mucosa moist Neck: Normal inspection. Neck supple. CVS: Normal heart rate and rhythm. Pulses normal. Respiratory: No respiratory distress. Equal air entry bilateral, no wheezing/rales/rhonchi Abdomen: Soft and nontender. Bowel sounds are present, no mass palpable, no CVA tenderness slight dehiscence of the laparotomy wound without any fluid discharge or fluid collection no tenderness Skin: Skin warm and dry. Normal skin color. Normal skin turgor. Extremities: No lower extremity edema. No calf tenderness psych:, cooperative with intermittent explosive behavior denies any depression SI like to go back and live alone Neuro: Oriented X 3. No motor deficit. No sensory deficit.No cerebellar signs , cranial nerves II-XII intact Medical Decision Making Medical Decision Making MDM Narrative: Patient's depression with explosive mood disorder feels safe to go back to longterm surgical wound been taking care of VNA and surgeon patient feels safe denies any SI at this time Discharge Plan Discharge Clinical Impression: Depression Patient Disposition: Home, Self-Care Instructions: Depression (ED) Additional Instructions: Continue you medication and follow up psych Follow-up with surgeon for your abdominal wound Prescriptions: No Action amoxicillin-pot clavulanate 875-125 mg tablet 1 tab PO BID Qty: 6 0RF ondansetron 8 mg tablet,disintegrating 8 mg PO Q8H PRN (Reason: nausea and vomiting) Qty: 10 0RF oxycodone-acetaminophen [Percocet] 5-325 mg tablet 1 tab PO Q4-6H PRN (Reason: pain) Qty: 10 0RF Rx Instructions: Partial Fill upon patient request. cyclobenzaprine 10 mg tablet 10 mg PO BID PRN (Reason: muscle spasm) buspirone 5 mg tablet 5 mg PO TID sennosides [senna] 8.6 mg tablet 8.6 mg PO BID lisinopril 20 mg tablet 20 mg PO DAILY mirtazapine 30 mg tablet 30 mg PO BEDTIME docusate sodium 100 mg capsule 100 mg PO BID estradiol 0.1 mg/24 hr Patch Weekly 3 patch TRANSDERMAL Q72H finasteride 5 mg tablet 5 mg PO DAILY escitalopram oxalate 10 mg tablet 15 mg PO DAILY atomoxetine [Strattera] 60 mg capsule 60 mg PO DAILY topiramate 50 mg tablet 50 mg PO BEDTIME Eliquis 5 mg tablet 5 mg PO BID
[2022-08-11 23:39] VITALS: BP 135/84; PULSE 100; RESP 18; TEMP 36.6; O2SAT 97; BMI 37.0
[2022-08-12] MEDS: Lidocaine HCl Viscous 2 % 15 ML SOLUTION MUCOUS MEM (00:14)
== END 2022-08-12 00:21 | disposition home or self-care (01) ==
PROVIDERS: Emergency Provider Internal Medicine
DX: F31.9 Bipolar disorder, unspecified (principal); R45.1 Restlessness and agitation; F64.0 Transsexualism; F11.20 Opioid dependence, uncomplicated; F60.9 Personality disorder, unspecified; Z90.49 Acquired absence of other specified parts of digestive tract; I11.0 Hypertensive heart disease with heart failure; I50.9 Heart failure, unspecified; I48.91 Unspecified atrial fibrillation; Z79.01 Long term (current) use of anticoagulants; Z79.899 Other long term (current) drug therapy
CPT/HCPCS: 99282

== ENCOUNTER 2022-08-12 11:18 | Inpatient (IN) | payer MEDICARE, MEDICAID, SELFPAY ==
[2022-08-12] VITALS (7 sets, daily range): BP systolic 119–156; BP diastolic 68–90; PULSE 86–110; RESP 14–20; TEMP 36.1–36.9; O2SAT 92–100; BMI 37.7
--- NOTE | 2022-08-12 11:27 | MHC.CARE ---
Call from marketing effectiveness manager, Morenita Ro [phone], she is available to provide information about patient.
--- NOTE | 2022-08-12 11:58 | ED_ITS ---
HPI - Psych General Chief Complaint: Psychiatric Symptoms Stated Complaint: CRISIS Time Seen by Provider: 08/12/22 11:25 Source: patient and EMS Mode of arrival: EMS Limitations: no limitations History of Present Illness HPI Narrative: 47 year old male to female with history of depression, s/p cholecystectomy prese nts today via EMS for SI. Per EMS, residential staff called them reporting that the patient was threatening her life, putting scissors up to her throat. In the ED, patient currently denies SI/HI. Her main complaint today is irritation/ redness around her cholecystectomy surgical scar. Related Data Home Medications Medication Instructions Recorded Confirmed apixaban 5 mg tablet (Eliquis) 5 mg PO BID 07/30/22 08/12/22 atomoxetine 60 mg capsule 60 mg PO DAILY 07/30/22 08/12/22 (Strattera) docusate sodium 100 mg capsule 100 mg PO BID 07/30/22 08/12/22 escitalopram oxalate 10 mg tablet 15 mg PO DAILY 07/30/22 08/12/22 estradiol 0.1 mg/24 hr weekly 3 patch transdermal Q72H 07/30/22 08/12/22 transdermal patch finasteride 5 mg tablet 5 mg PO DAILY 07/30/22 08/12/22 lisinopril 20 mg tablet 20 mg PO DAILY 07/30/22 08/12/22 mirtazapine 30 mg tablet 30 mg PO BEDTIME 07/30/22 08/12/22 sennosides 8.6 mg tablet (senna) 8.6 mg PO BID 07/30/22 08/12/22 topiramate 50 mg tablet 50 mg PO BEDTIME 07/30/22 08/12/22 emtricitabine 200 mg-tenofovir 1 tab PO DAILY 08/12/22 08/12/22 disoproxil fumarate 300 mg tablet pregabalin 150 mg capsule 150 mg PO BID 08/12/22 08/12/22 torsemide 20 mg tablet 20 mg PO BID 08/12/22 08/12/22 Previous Rx's Medication Instructions Recorded ondansetron 8 mg disintegrating 8 mg PO Q8H PRN nausea and 08/07/22 tablet vomiting #10 tabs oxycodone-acetaminophen 5 mg-325 1 tab PO Q4-6H PRN pain #10 tabs 08/07/22 mg tablet (Percocet) amoxicillin 875 mg-potassium 1 tab PO Q12H #20 tabs 08/12/22 clavulanate 125 mg tablet Allergies Allergy/AdvReac Type Severity Reaction Status Date / Time cephalexin Allergy Mild Hives Verified 08/12/22 12:05 Review of Systems Review of Systems: Yes all other systems are reviewed and are negative Neurologic: Denies Sensory deficit (Neuro) [facility] Past Medical History Medical History Atrial fibrillation CHF (congestive heart failure) Depression Drug abuse in remission Hypertension Obesity Surgical History S/P ablation of atrial fibrillation Status post laparoscopic cholecystectomy Status post laparoscopic procedure Family History Family History Mother Angina pectoris Social History Social History Household Members: Other Housing: Other Housing Other:: care home Do you presently have visiting nurse or other home services: Yes Alcohol intake: never Patient Tobacco Use Status: Never used Tobacco Smoked in Last 30 Days: No Use of substances other than those prescribed or required for medical reasons: No Substance Use Type: Methamphetamine Advance Directives: No Advance Directives Information Provided: Yes service: No Current occupational status: unemployed Physical Exam Vital Signs: Vital Signs: Last Vital Signs Temp 98.3 F 08/12/22 14:00 Pulse 92 08/12/22 14:00 Resp 14 08/12/22 15:31 BP 141/87 H 08/12/22 14:00 Pulse Ox 100 08/12/22 14:00 O2 Del Method Room Air 08/12/22 14:00 BMI result Body Mass Index 37.7 Const: General: healthy appearing Nutritional Appearance: average body habitus Orientation/consciousness: oriented to person and patient oriented x3 Limitations: no limitations HEENT: Head: Yes normal to inspection Ears: external ears normal General nose exam: Normal external nose present Mouth: Normal oral and palatal mucosa present and oropharynx normal Throat: Yes posterior oropharynx normal Eyes: General: appearance normal, both eyes and all related structures Neck: Other: supple Neck: Yes normal visual inspection Chest: Chest palpation & inspection: normal inspection of the chest Resp: Auscultation: clear to auscultation bilaterally Cardio: Jugular venous distension: no JVD Rate: regular rate Rhythm: regular rhythm Heart sounds: S1 normal heart sound present and S2 normal heart sound present GI: Inspection: Yes normal to inspection Palpation (GI): Soft to palpation, nontender and No hepatosplenomegaly present Auscultation: normal bowel sounds : General: Yes no CVA tenderness Back/Spine/Pelvis: Back: no CVA tenderness Skin: Other: + midline incision noted around the umbilicus with some wound dehiscence, puss, and slight erythema Neuro: General: oriented to person and patient oriented x3 Cranial nerves: Yes CN's II-XII intact bilaterally Motor exam (neuro): 5/5 motor strength present throughout Sensory Exam: No Sensory deficit (Neuro) Extrem: General: Yes normal to inspection Psych: Appearance: grossly normal Course Reevaluation(s) Reevaluation #1: Patient is a 47 yo transgnder female who presents with question of suicidal jonathan ation and reevaluation of wound dehiscence. If patient is cleared by crisis, she will be able to be discharged. Time: 16:12 Reevaluation #2: Physician obs: patient awaiting crisis evaluation and clearance. Time: 16:13 Medications Administered Discontinued Medications Generic Name Dose Route Start Last Admin Trade Name Freq PRN Reason Stop Dose Admin Acetaminophen/Codeine Phosphate 1 tab 08/12/22 14:01 08/12/22 14:26 Acetaminophen With Codeine # 3 Tablet PO 08/12/22 14:02 1 tab ONCE ONE Administration Amoxicillin/Clavulanate Potassium 875 mg 08/12/22 15:07 08/12/22 15:23 Amoxicillin/Potassium Clav 875 Mg Tablet PO 08/12/22 15:08 875 mg ONCE ONE Administration Lidocaine HCl 15 ml 08/12/22 14:02 08/12/22 14:26 Lidocaine Hcl Viscous 2 % 15 Ml Solution MUCOUS MEM 08/12/22 14:03 15 ml ONCE ONE Administration Medical Decision Making Differential Diagnosis Differential Diagnoses: The differential diagnosis associated with the presentation includes (depression, suicidal ideation, wound dehiscence was all included. ) Admission/Observation Consideration of admission/observation: Escalation of care including admission/observation considered (Upon arrival, 47 yo with SI and wound dehiscence was considered for admission.) Consult Healthcare Provider Management of the patient was discussed with: Behavioral Health Provider Lab Data [facility] Lab Attestation statement: I reviewed the patient's lab results. (Labs negative for elevated white count.) 08/12/22 12:56 08/12/22 12:56 Labs: Lab Results 08/12/22 08/12/22 08/12/22 Range/Units 12:08 12:56 12:56 WBC 8.4 (4.8-10.8) X10*3/uL RBC 3.71 L (4.60-5.80) X10*6/uL Hgb 11.9 L (14.0-18.0) g/dl Hct 36.4 L (42.0-52.0) % MCV 98.1 H (80.0-98.0) fL MCH 32.1 (27.0-33.0) pg MCHC 32.7 (31.0-36.0) g/dl RDW 13.7 (11.0-16.0) % Plt Count 531 H D (160-400) X10*3/uL MPV 10.2 (9.4-12.4) fL Immature Gran % (Auto) 1.3 H (0.0-0.4) % Neut % (Auto) 62.9 (45-73) % Lymph % (Auto) 21.9 (20-40) % [place] % (Auto) 11.2 H (2-11) % Eos % (Auto) 2.0 (0-4) % Baso % (Auto) 0.7 (0-2) % Lymph # (Auto) 1.9 (1.2-4.9) X10*3/uL [place] # (Auto) 0.9 (0.1-1.2) X10*3/uL Eos # (Auto) 0.2 (0.0-0.4) X10*3/uL Baso # (Auto) 0.1 (0.0-0.2) X10*3/uL Abs Immat Gran (auto) 0.11 H (0.00-0.03) X10*3/uL Absolute Neuts (auto) 5.3 (2.0-8.3) x10*3/uL Absolute Nucleated RBC 0.000 (0.0-0.012) X10*3/uL Nucleated RBC % (auto) 0.0 (0.0-0.2) /100WBC Sodium 136 (135-145) mmol/L Potassium 4.1 D (3.3-5.1) mmol/L Chloride 103 (96-108) mmol/L Carbon Dioxide 24 (22-29) mmol/L Anion Gap 13 (12-20) BUN 21 H (9-16) mg/dL Creatinine 0.91 (0.5-1.4) mg/dL Estim Creat Clear Calc 132.2 Estimated GFR > 60 Random Glucose 209 H (60-115) mg/dL Calcium 9.3 D (8.4-10.2) mg/dL Urine Opiates Screen Not Detected (Not Detect) Urine Fentanyl Screen Not Detected (Not Detect) Ur Barbiturates Screen Not Detected (Not Detect) Ur Phencyclidine Scrn Not Detected (Not Detect) Ur Amphetamines Screen Not Detected (Not Detect) U Benzodiazepines Scrn Not Detected (Not Detect) Urine Cocaine Screen Not Detected (Not Detect) U Marijuana (THC) Screen Not Detected (Not Detect) Ethyl Alcohol < 10 mg/dL Independent Historian Clinical information obtained from an independent historian. History obtained f rom or confirmed by: EMS Tests considered The following testing was considered but not selected: Considered CT of abd but pt is afebrile. No expression of puss. Normal WBC count. So, i did not scan the patient. Social Determinants Patient?s care significantly limited by Social Determinants of Health including: Other Social Determinant of Health (care home) Discharge Plan Discharge Clinical Impression: Depression, Suicidal ideation, Abdominal wound dehiscence Patient Disposition: Still a Patient Instructions: Depression (ED), Wound Dehiscence (ED) Prescriptions: New amoxicillin-pot clavulanate 875-125 mg tablet 1 tab PO Q12H Qty: 20 0RF No Action ondansetron 8 mg tablet,disintegrating 8 mg PO Q8H PRN (Reason: nausea and vomiting) Qty: 10 0RF oxycodone-acetaminophen [Percocet] 5-325 mg tablet 1 tab PO Q4-6H PRN (Reason: pain) Qty: 10 0RF Rx Instructions: Partial Fill upon patient request. sennosides [senna] 8.6 mg tablet 8.6 mg PO BID lisinopril 20 mg tablet 20 mg PO DAILY mirtazapine 30 mg tablet 30 mg PO BEDTIME docusate sodium 100 mg capsule 100 mg PO BID estradiol 0.1 mg/24 hr Patch Weekly 3 patch TRANSDERMAL Q72H finasteride 5 mg tablet 5 mg PO DAILY escitalopram oxalate 10 mg tablet 15 mg PO DAILY atomoxetine [Strattera] 60 mg capsule 60 mg PO DAILY topiramate 50 mg tablet 50 mg PO BEDTIME Eliquis 5 mg tablet 5 mg PO BID torsemide 20 mg tablet 20 mg PO BID emtricitabine-tenofovir (TDF) 200-300 mg tablet 1 tab PO DAILY pregabalin 150 mg capsule 150 mg PO BID Interventions: [place]-Suicide Risk Severity Scale Last Done: 08/12/22 13:19
[2022-08-12 12:25] LABS: Amphetamine Screen Urine Not Detected (Not Detect); Barbiturates, Urine Not Detected (Not Detect); Benzodiazepines Screen Urine Not Detected (Not Detect); Cannabinoid Screen Urine Not Detected (Not Detect); Cocaine Screen Urine Not Detected (Not Detect); Fentanyl, urine Not Detected (Not Detect); Opiate Screen Urine Not Detected (Not Detect); Phencyclidine Screen Urine Not Detected (Not Detect)
[2022-08-12 13:00] LABS: MANUAL DIFF FLAG NO
[2022-08-12 13:02] LABS: Basophils Absolute Auto 0.1 X10*3/uL (0.0-0.2); Basophils Percent Auto 0.7 % (0-2); Eosinophils Absolute Auto 0.2 X10*3/uL (0.0-0.4); Hematocrit 36.4 % (42.0-52.0); Hemoglobin 11.9 g/dl (14.0-18.0); Imm Gran Abs Auto 0.11 X10*3/uL (0.00-0.03); Imm Gran Pct Auto 1.3 % (0.0-0.4); Lymphocytes Absolute Auto 1.9 X10*3/uL (1.2-4.9); Lymphocytes Percent Auto 21.9 % (20-40); Mean Corpuscular HGB Conc 32.7 g/dl (31.0-36.0); Mean Corpuscular Hemoglobin 32.1 pg (27.0-33.0); Mean Corpuscular Volume 98.1 fL (80.0-98.0); Mean Platelet Volume 10.2 fL (9.4-12.4); Monocytes Absolute Auto 0.9 X10*3/uL (0.1-1.2); Monocytes Percent Auto 11.2 % (2-11); Neutrophils Absolute Auto 5.3 x10*3/uL (2.0-8.3); Neutrophils Percent Auto 62.9 % (45-73); Platelet Count 531 X10*3/uL (160-400); Red Blood Count 3.71 X10*6/uL (4.60-5.80); Red Cell Distribution Width 13.7 % (11.0-16.0); White Blood Count 8.4 X10*3/uL (4.8-10.8)
[2022-08-12 13:16] LABS: Anion Gap 13 (12-20); Blood Urea Nitrogen 21 mg/dL (9-16); Calcium 9.3 mg/dL (8.4-10.2); Carbon Dioxide 24 mmol/L (22-29); Chloride 103 mmol/L (96-108); Creatinine Clr Calc Pharmacy 132.2; Estimated Glomerular Filt Rate > 60; Glucose Random 209 mg/dL (60-115); Potassium 4.1 mmol/L (3.3-5.1); Sodium 136 mmol/L (135-145)
--- NOTE | 2022-08-12 13:20 | PC.NURSE ---
pt is alert and oriented, skin pwd, respirations even and unlabored, pt is hyperverbal enplaning how she came from her recover home for medical reasons and that the home is making up lies about her wanting to hurt herself, denies si.hi. she reports falling at the home and laying on the ground without anybody coming to help so she got frustrated and was yelling for help, was picking at the abd staple because it was hurting her not because she wanted to hurt herself-pt has a large heeling wound on her abd with multiple kentrell- the 4 the staple from the bottom of the wound appears to be missing with very minim of draining coming out, there is a large rash around the wound-appears like a reaction to the tape. vs stable sitter in place,
[2022-08-12] MEDS: Lidocaine HCl Viscous 2 % 15 ML SOLUTION MUCOUS MEM (14:26)
--- NOTE | 2022-08-12 15:00 | PHA.MEDREC ---
Pharmacy Consult ? Medication Reconciliation Pharmacy has completed the medication reconciliation. spoke with patient and confirmed her meds. She is no longer taking metoprolol and Epclusa. Patient reports drinking a shake every morning containing Metamucil and Miralax for constipation.
--- NOTE | 2022-08-12 15:01 | MHC.CARE ---
CARE Team left for water resources program director for collateral contact
--- NOTE | 2022-08-12 15:10 | PC.NURSE ---
Pt requesting food, provider aware and ok with pt eating. wctm.
--- NOTE | 2022-08-12 15:14 | PC.NURSE ---
Care team requesting urine BA in order to see pt. Care team reports calling [facility] several times and unable to reach anyone.
[2022-08-12] MEDS: Amoxicillin/Potassium Clav 875 MG TABLET PO (15:23)
--- NOTE | 2022-08-12 15:28 | PC.NURSE ---
Pt requested and given food and drink. Pt requested all soft foods for dinner. wctm.
--- NOTE | 2022-08-12 15:39 | PC.NURSE ---
Ambulates with steady gait. urine collected. [facility].
[2022-08-12 15:48] LABS: Ethanol < 10 mg/dL
--- NOTE | 2022-08-12 15:57 | MHC.CARE ---
CARE Team left VM with updated phone for Morenita at [facility] ([phone])
[2022-08-12 16:20] LABS: Appearance Urine Clear; Color Urine Yellow; Glucose Urine UA Negative (Negative); Leukocyte Esterase Urine Negative (Negative); Nitrite Urine Negative (Negative); PH 5.5 (5.0-9.0); Specific Gravity - Urine 1.015 (1.005-1.025); Urine Blood Negative (Negative); Urine Ketones Negative (Negative); Urine Protein Negative (Neg-Trace)
--- NOTE | 2022-08-12 16:43 | PC.NURSE ---
Pt advised being moved to pod. Pt cooperative. Ambulating with a steady gait.
[2022-08-12] MEDS: Ondansetron ODT 8 MG TAB.RAPDIS TRANSLINGU (17:50)
[2022-08-12] MEDS: LORazepam 1 MG TABLET PO (17:50)
[2022-08-12] MEDS: oxyCODONE HCl Immed Release 5 MG TABLET PO (18:00)
[2022-08-12] MEDS: Finasteride 5 MG TABLET PO (18:38)
[2022-08-12] MEDS: Emtricitabin/Tenofovir 200/300 TABLET 1 TAB PO (18:39)
[2022-08-12] MEDS: lisinopriL 20 MG TABLET PO (18:39)
[2022-08-12] MEDS: Escitalopram Oxalate 5 MG TABLET 15 MG PO (18:39)
[2022-08-12] MEDS: Topiramate 25 MG TABLET 50 MG PO (20:58)
[2022-08-12] MEDS: Pregabalin 150 MG CAPSULE PO (20:58)
[2022-08-12] MEDS: Torsemide 20 MG TABLET PO (20:58)
[2022-08-12] MEDS: Mirtazapine 30 MG TABLET PO (20:58)
[2022-08-12] MEDS: Sennosides 8.6 MG TABLET PO (20:58)
[2022-08-12] MEDS: Apixaban 5 MG TABLET PO (20:58)
[2022-08-12] MEDS: Docusate Sodium 100 MG CAPSULE PO (20:58)
[2022-08-13 00:10] VITALS: BP 129/73; PULSE 100; RESP 17; TEMP 36.2; O2SAT 100
[2022-08-13] MEDS: oxyCODONE HCl Immed Release 5 MG TABLET PO ×3 (03:20→15:16)
--- NOTE | 2022-08-13 05:06 | PC.NURSE ---
Patient slept intermittently, behavior unpredictable with highly labile mood, med rec completed/medication compliant, Oxycodone 5 mg PRN administered at 0320 with + effect, patient was assessed by care team, disposition pending, care team will talk to facility in the morning, VSS, will continue to monitor.
[2022-08-13 07:33] VITALS: BP 147/91; PULSE 110; RESP 18; TEMP 36.2; O2SAT 98
--- NOTE | 2022-08-13 08:27 | PC.NURSE ---
Pt. requesting dose of Oxycodone. It is appx. half an hour too early to give next dose based on PRN Q6hrs schedule. Verbally OK per Neil Jones MD to give dose now.
[2022-08-13] MEDS: Torsemide 20 MG TABLET PO ×2 (08:30→21:18)
[2022-08-13] MEDS: Escitalopram Oxalate 5 MG TABLET 15 MG PO (08:31)
[2022-08-13] MEDS: Docusate Sodium 100 MG CAPSULE PO ×2 (08:32→21:04)
[2022-08-13] MEDS: Pregabalin 150 MG CAPSULE PO ×2 (08:32→21:04)
[2022-08-13] MEDS: lisinopriL 20 MG TABLET PO (08:32)
[2022-08-13] MEDS: Sennosides 8.6 MG TABLET PO ×2 (08:32→21:04)
[2022-08-13] MEDS: Apixaban 5 MG TABLET PO ×2 (08:33→21:04)
[2022-08-13] MEDS: Finasteride 5 MG TABLET PO (08:33)
[2022-08-13] MEDS: Emtricitabin/Tenofovir 200/300 TABLET 1 TAB PO (09:18)
[2022-08-13] MEDS: Amoxicillin/Potassium Clav 875 MG TABLET PO ×2 (09:18→21:04)
--- NOTE | 2022-08-13 14:05 | MHC.CARE ---
Patient evaluated by the CARE Team and will require an inpatient psychiatric admission.
[2022-08-13 15:48] LABS: COVID-19 Test Negative (Negative); IDNOW Serial# 6674DD1D
[2022-08-13] MEDS: LORazepam 1 MG TABLET 2 MG PO (17:09)
[2022-08-13] MEDS: diphenhydrAMINE HCL 25 MG CAPSULE 50 MG PO (17:09)
[2022-08-13] MEDS: HaloperidoL 5 MG TABLET PO (17:09)
--- NOTE | 2022-08-13 17:40 | P.CNPS_ITS ---
History of Present Illness Date of Service: 08/13/2022 Chief Complaint: CRISIS Reason for Consult: labile mood, paranoid Discussed with referring provider: Yes Sources of Information: patient interviewed, chart reviewed and crisis/core team assessment reviewed HPI Narrative: Ms. Treviño is a 47 y/o trans woman who was brought on sect 12a from [facility] program due to presenting as paranoid, labile, irritable. Utox is negative. Pt has been at program for past 6 months and staff at [facility] program report after she had surgery for appendecitis pt later presented as labile, accusatory thought to be secondary to paranoia, irritable. Utox is negative. Pt seen in ED. Pt presents as hyperverbal, irritable edge. Pt reports she has been in this program for the past 6 months and has worked very hard on recovery. Pt reports e new staff at [facility] who she does not trust. She reports she has filed complaints against this staff and believes these 3 staff were fired and now going after her (program reports the staff continue to work there). Pt several times at edge of becoming more irritable when she thought this technical publications writer was not paying attention to her as this technical publications writer asked for clarifying question. Pt denies SI/HI. She does report fear for her life as she thinks staff from [facility] will go after her. She reports her mental health is the best I've ever been, my medications as working! As she also becomes tearful. Pt initially declined any medication changes and started yelling at this technical publications writer to leave. Pt later able to calm down and some insight that I need anger management, I know. [facility] Medical History Atrial fibrillation CHF (congestive heart failure) Depression Drug abuse in remission Hypertension Obesity Surgical History S/P ablation of atrial fibrillation Status post laparoscopic cholecystectomy Status post laparoscopic procedure Diagnostics Vital Signs (24Hr): Vital Signs - 24 hr 08/12/22 17:55 08/12/22 20:00 08/12/22 21:17 Temperature 97 F 98.2 F 98.4 F Pulse Rate 91 108 H 98 Respiratory Rate 18 15 20 Blood Pressure 122/68 156/80 H 140/86 H Pulse Oximetry 99 92 98 Oxygen Delivery Method Room Air Room Air Room Air 08/13/22 00:10 08/13/22 07:33 Temperature 97.2 F 97.2 F Pulse Rate 100 110 H Respiratory Rate 17 18 Blood Pressure 129/73 147/91 H Pulse Oximetry 100 98 Oxygen Delivery Method Room Air Room Air BMI result Body Mass Index 37.7 Labs 08/12/22 12:56 08/12/22 12:56 Labs: Laboratory Results - last 48 hr 08/12/22 08/12/22 08/12/22 12:08 12:56 12:56 WBC 8.4 RBC 3.71 L Hgb 11.9 L Hct 36.4 L MCV 98.1 H MCH 32.1 MCHC 32.7 RDW 13.7 Plt Count 531 H D MPV 10.2 Immature Gran % (Auto) 1.3 H Neut % (Auto) 62.9 Lymph % (Auto) 21.9 [place] % (Auto) 11.2 H Eos % (Auto) 2.0 Baso % (Auto) 0.7 Lymph # (Auto) 1.9 [place] # (Auto) 0.9 Eos # (Auto) 0.2 Baso # (Auto) 0.1 Abs Immat Gran (auto) 0.11 H Absolute Neuts (auto) 5.3 Absolute Nucleated RBC 0.000 Nucleated RBC % (auto) 0.0 Sodium 136 Potassium 4.1 D Chloride 103 Carbon Dioxide 24 Anion Gap 13 BUN 21 H Creatinine 0.91 Estim Creat Clear Calc 132.2 Estimated GFR > 60 Random Glucose 209 H Calcium 9.3 D Urine Color Urine Appearance Urine pH Ur Specific [place] Urine Protein Urine Glucose (UA) Urine Ketones Urine Blood Urine Nitrite Ur Leukocyte Esterase Urine Opiates Screen Not Detected Urine Fentanyl Screen Not Detected Ur Barbiturates Screen Not Detected Ur Phencyclidine Scrn Not Detected Ur Amphetamines Screen Not Detected U Benzodiazepines Scrn Not Detected Urine Cocaine Screen Not Detected U Marijuana (THC) Screen Not Detected Ethyl Alcohol < 10 COVID-19 ([facility]) COVID-19 Clin Com 08/12/22 08/13/22 15:51 15:27 WBC RBC Hgb Hct MCV MCH MCHC RDW Plt Count MPV Immature Gran % (Auto) Neut % (Auto) Lymph % (Auto) [place] % (Auto) Eos % (Auto) Baso % (Auto) Lymph # (Auto) [place] # (Auto) Eos # (Auto) Baso # (Auto) Abs Immat Gran (auto) Absolute Neuts (auto) Absolute Nucleated RBC Nucleated RBC % (auto) Sodium Potassium Chloride Carbon Dioxide Anion Gap BUN Creatinine Estim Creat Clear Calc Estimated GFR Random Glucose Calcium Urine Color Yellow Urine Appearance Clear Urine pH 5.5 Ur Specific [place] 1.015 Urine Protein Negative Urine Glucose (UA) Negative Urine Ketones Negative Urine Blood Negative Urine Nitrite Negative Ur Leukocyte Esterase Negative Urine Opiates Screen Urine Fentanyl Screen Ur Barbiturates Screen Ur Phencyclidine Scrn Ur Amphetamines Screen U Benzodiazepines Scrn Urine Cocaine Screen U Marijuana (THC) Screen Ethyl Alcohol COVID-19 ([facility]) Negative COVID-19 Clin Com See Note Mental Status Exam Mental Status Exam Narrative: Appearance: casually groomed, bold, fair hygiene, in NAD Behavior: fluctuation from friendly to irritable Psychomotor: some agitation noted Speech: clear, hyperverbal not pressured, spontaneous, loud at times TP: tangential but no loose associations. TC: paranoid towards staff at [facility], not feeling safe Mood: best it has ever been Affect: labile SI: denies HI: denies VH/AH: none Delusions: paranoia. Insight/judgment: poor x 2 into psychiatric symptoms and need for treatment. Memory/cog: alert, oriented x 3. poor attention. Medications Medications Current Medications Acetaminophen (Acetaminophen 325 Mg Tablet) 650 mg PO Q6H PRN PRN Reason: Pain, Moderate(Pain Scale 4-6) Amoxicillin/Clavulanate Potassium (Amoxicillin/Potassium Clav 875 Mg Tablet) 875 mg PO Q12H [facility] Last Admin: 08/13/22 09:18 Dose: 875 mg Apixaban (Apixaban 5 Mg Tablet) 5 mg PO BID [facility] Last Admin: 08/13/22 08:33 Dose: 5 mg Clonidine HCl (Clonidine Hcl 0.1 Mg Tablet) 0.1 mg PO TID [facility]; Protocol Docusate Sodium (Docusate Sodium 100 Mg Capsule) 100 mg PO BID [facility] Last Admin: 08/13/22 08:32 Dose: 100 mg Emtricitabine/Tenofovir (Emtricitabin/Tenofovir 200/300 Tablet) 1 tab PO DAILY [facility] Last Admin: 08/13/22 09:18 Dose: 1 tab Escitalopram Oxalate (Escitalopram Oxalate 5 Mg Tablet) 15 mg PO DAILY [facility] Last Admin: 08/13/22 08:31 Dose: 15 mg Finasteride (Finasteride 5 Mg Tablet) 5 mg PO DAILY [facility] Last Admin: 08/13/22 08:33 Dose: 5 mg Haloperidol (Haloperidol 5 Mg Tablet) 5 mg PO BID [facility] Lisinopril (Lisinopril 20 Mg Tablet) 20 mg PO DAILY [facility]; Protocol Last Admin: 08/13/22 08:32 Dose: 20 mg Lorazepam (Lorazepam 1 Mg Tablet) 1 mg PO BID [facility] Mirtazapine (Mirtazapine 15 Mg Tablet) 15 mg PO BEDTIME [facility] Non-Formulary Medication (Estradiol) 3 patch TRANSDERMA Q72H [facility] Ondansetron HCl (Ondansetron Odt 8 Mg Tab.Rapdis) 8 mg TRANSLINGU Q8H PRN PRN Reason: nausea and vomiting Last Admin: 08/12/22 17:50 Dose: 8 mg Oxycodone HCl (Oxycodone Hcl Immed Release 5 Mg Tablet) 5 mg PO Q6H PRN PRN Reason: Pain, Severe (Pain Scale 7-10) Last Admin: 08/13/22 15:16 Dose: 5 mg Pharmacy Consult (Consult Rx Perform Med Rec) 1 each MISCELLANE ONCE PRN PRN Reason: Consult order Pregabalin (Pregabalin 150 Mg Capsule) 150 mg PO BID [facility] Last Admin: 08/13/22 08:32 Dose: 150 mg Senna (Sennosides 8.6 Mg Tablet) 8.6 mg PO BID [facility] Last Admin: 08/13/22 08:32 Dose: 8.6 mg Topiramate (Topiramate 25 Mg Tablet) 50 mg PO BEDTIME [facility] Last Admin: 08/12/22 20:58 Dose: 50 mg Torsemide (Torsemide 20 Mg Tablet) 20 mg PO BID [facility]; Protocol Last Admin: 08/13/22 08:30 Dose: 20 mg Allergies Allergies Allergy/AdvReac Type Severity Reaction Status Date / Time cephalexin Allergy Mild Hives Verified 08/12/22 12:05 Assessment & Plan Assessment & Plan (1) Bipolar 1 disorder with moderate amber: Status: Acute Code(s): F31.12 - Bipolar disorder, current episode manic without psychotic features, moderate (2) Personality disorder in adult: Status: Acute Code(s): F60.9 - Personality disorder, unspecified Plan Ms. Treviño is a 47 year-old trans woman brought on sect 12a due to increase paranoia, labile mood, explosive behaviors from [facility] program where she has reside for the past 6 months. Per staff at [facility] program, pt started showing these symptoms in past 2 weeks after appendectomy. Unclear her psych hx. In the ED, pt presents as labile some paranoia noted. There are some characteriological traits to her presentation but I do suspect an underlying Bipolar Dirsorder exacerbating such traits. After discussing risks, benefits and alternative treatment option, pt did agree to stop stratera, hold on lexapro, schedule haldol 5mg po BID with temporary ativan while pt more stable. She also agree to start clonidine. PLAN 1. pt meets criteria for a voluntary conditional admission to inpatient psychiatric unit. 2. d/c lexapro/ d/c strattera due to worsening of labile mood, paranoid 3. schedule haldol 5mg po BID ativan 1mg po BID (ativan while in ED as pt continues to work on recovery). Start clonidine 0.1mg po BID Total time managing care of this patient today ____ minutes.
[2022-08-13] MEDS: LORazepam 1 MG TABLET PO (21:03)
[2022-08-13] MEDS: Topiramate 25 MG TABLET 50 MG PO (21:03)
[2022-08-13] MEDS: Mirtazapine 15 MG TABLET PO (21:04)
[2022-08-13 21:15] VITALS: BP 142/81; PULSE 90; RESP 12; TEMP 35.8; O2SAT 98
[2022-08-13] MEDS: cloNIDine HCL 0.1 MG TABLET PO (21:19)
--- NOTE | 2022-08-14 04:55 | PC.NURSE ---
Patient slept through the night, no distress observed/reported, behavior unpredictable consistent with borderline personality disorder, medication compliant, disposition per care team voluntary inpatient bed search, VSS, will continue to monitor.
[2022-08-14 06:25] VITALS: RESP 17
[2022-08-14 07:43] VITALS: BP 106/44; PULSE 81; RESP 15; TEMP 36.3; O2SAT 99
[2022-08-14] MEDS: Amoxicillin/Potassium Clav 875 MG TABLET PO ×2 (07:44→23:09)
[2022-08-14] MEDS: Pregabalin 150 MG CAPSULE PO ×2 (07:45→23:11)
[2022-08-14] MEDS: Sennosides 8.6 MG TABLET PO ×2 (07:45→23:11)
[2022-08-14] MEDS: Apixaban 5 MG TABLET PO ×2 (07:45→23:09)
[2022-08-14] MEDS: Docusate Sodium 100 MG CAPSULE PO ×2 (07:46→23:10)
[2022-08-14] MEDS: Finasteride 5 MG TABLET PO (07:46)
[2022-08-14] MEDS: Emtricitabin/Tenofovir 200/300 TABLET 1 TAB PO (07:46)
[2022-08-14] MEDS: oxyCODONE HCl Immed Release 5 MG TABLET PO ×3 (07:46→23:32)
[2022-08-14] MEDS: LORazepam 1 MG TABLET PO ×2 (07:46→23:08)
[2022-08-14] MEDS: HaloperidoL 5 MG TABLET PO ×2 (07:52→23:10)
--- NOTE | 2022-08-14 14:21 | MHC.CARE ---
Pt has [facility] a [facility] ([facility]) since Mar 13. Today, CARE Team receives a call from Rocio, integrated program teacher that effective immediately pt is discharged from the program. They report that this is due to pt requesting a [employer], self harm and pt damaging property. CARE Team has been very clear with the [facility] since pt's arrival to the ED that re-housing, nor establishing a new program for the pt is not beneficial, nor is it an intervention that is being provided. CARE Team has been clear in communication with the [facility] that plan was to help to re-stabilize the pt to baseline functioning so she can return to the [facility] and continue to be successful in recovery. Pt is now homeless. IT program when questioned showed some willingness to assist in finding pt a placement for post d/c. Inpt s/w team encouraged to f/u with Rocio. Pt is not aware at this time that she has been discharged from the [facility].
--- NOTE | 2022-08-14 14:40 | PC.NURSE ---
Patient requesting lidocaine swishes for her painful teeth. Provider made aware and this nurse was told that the Lidocaine is on backorder. Patient made aware, given ice cream per request.
[2022-08-14] MEDS: Torsemide 20 MG TABLET PO (23:09)
[2022-08-14] MEDS: cloNIDine HCL 0.1 MG TABLET PO (23:10)
[2022-08-14] MEDS: Topiramate 25 MG TABLET 50 MG PO (23:11)
[2022-08-14] MEDS: Mirtazapine 15 MG TABLET PO (23:14)
[2022-08-15] MEDS: Acetaminophen 325 MG TABLET 650 MG PO (03:30)
[2022-08-15] MEDS: OLANZapine 5 MG TABLET PO ×2 (03:30→11:51)
--- NOTE | 2022-08-15 03:46 | PC.ADMIT ---
Pt is a 48 yo transgender M-F woman, admitted on a CV from [facility] with a diagnosis of unspecified psychotic disorder. Pt live in a residential program for the past 6 months and have abdominal surgery on 08/01/22, having wound breakdown with slough. Wound clean and dressed, hospitalist informed for consultation. Pt is talkative with incoherent and irrelevant speech sometimes. She appeared unkempt with delusional thoughts, manic and paranoia. She became verbally aggressive toward staff when directed not to bring all her belongings from residential program. Pt did not give authorization to anyone and does not want anybody to be informed about her admission. She is a high fall risk having history of fall recently while at home and moving with the aid of a walker. She eats well but not sleeping at night. She claimed to be sober for 6 months, treatment plan initiated.
[2022-08-15 10:09] VITALS: BP 109/55; PULSE 77; TEMP 36.2; O2SAT 96
[2022-08-15] MEDS: lisinopriL 20 MG TABLET PO (10:33)
[2022-08-15] MEDS: Amoxicillin/Potassium Clav 875 MG TABLET PO ×2 (10:33→22:14)
[2022-08-15] MEDS: Docusate Sodium 100 MG CAPSULE PO ×2 (10:33→22:16)
[2022-08-15] MEDS: Pregabalin 150 MG CAPSULE PO ×2 (10:33→22:16)
[2022-08-15] MEDS: Emtricitabin/Tenofovir 200/300 TABLET 1 TAB PO (10:34)
[2022-08-15] MEDS: Apixaban 5 MG TABLET PO ×2 (10:34→22:14)
[2022-08-15] MEDS: HaloperidoL 5 MG TABLET PO ×2 (10:34→22:16)
[2022-08-15] MEDS: Torsemide 20 MG TABLET PO ×2 (10:34→22:15)
[2022-08-15] MEDS: cloNIDine HCL 0.1 MG TABLET PO ×2 (10:35→22:20)
[2022-08-15] MEDS: Finasteride 5 MG TABLET PO (10:35)
[2022-08-15] MEDS: Sennosides 8.6 MG TABLET PO ×2 (10:35→22:15)
[2022-08-15] MEDS: LORazepam 1 MG TABLET PO (10:35)
[2022-08-15] MEDS: oxyCODONE HCl Immed Release 5 MG TABLET PO ×2 (11:51→22:20)
--- NOTE | 2022-08-15 16:17 | P.HPPS_ITS ---
HPI Date of Service: 08/15/22 Chief Complaint: Dysregulated Sources of Information: patient interviewed, chart reviewed and crisis/core team assessment reviewed HPI Subjective Notes: Solomon Warning and Conditional Voluntary Narrative: Ms. Treviño is a 47 y/o trans woman who was brought on sect 12a from [facility] program due to presenting as paranoid, labile, irritable. Utox is negative. Pt has been at program for past 6 months and staff at [facility] program report after she had surgery for appendecitis pt later presented as labile, accusatory thought to be secondary to paranoia, irritable. Utox is negative. Pt seen in ED. Pt presents as hyperverbal, irritable edge. Pt reports she has been in this program for the past 6 months and has worked very hard on recovery. Pt reports e new staff at program who she does not trust. She reports she has fi led complaints against this staff and believes these 3 staff were fired and now going after her (program reports the staff continue to work there). Pt several times at edge of becoming more irritable when she thought this principal technical writer was not paying attention to her as this principal technical writer asked for clarifying question. Pt denies SI/HI. She does report fear for her life as she thinks staff from [facility] will go after her. She reports her mental health is the best I've ever been, my medications as working! As she also becomes tearful. Pt initially declined any medication changes and started yelling at this principal technical writer to leave. Pt later able to calm down and some insight that I need anger management, I know. On the unit, pt presents more somnolent. She continues to denied suicidal or homicidal ideation. Pt slept through the night and has been taking medications as prescribed. Pt reports she wants to go to SNF, however, she does not qualify for such level of care. Pt continues to report paranoia towards staff at [facility]. Past Psychiatric History: Inpatient: past inpt admission but no detail provided OP: none currently. Past medication trials: stratera, seroquel, lexapro, risperidone Medical Evaluation Reviewed: Yes [facility] Medical History Atrial fibrillation CHF (congestive heart failure) Depression Drug abuse in remission Hypertension Obesity Surgical History S/P ablation of atrial fibrillation Status post laparoscopic cholecystectomy Status post laparoscopic procedure Diagnostics Vital Signs (24Hr): Vital Signs - 24 hr 08/15/22 10:09 Temperature 97.2 F Pulse Rate 77 Blood Pressure 109/55 L Pulse Oximetry 96 Oxygen Delivery Method Room Air BMI result Body Mass Index 37.7 Labs 08/12/22 12:56 08/12/22 12:56 Meds/Allergies Meds Home Medications Medication Instructions Recorded Confirmed Type apixaban 5 mg tablet (Eliquis) 5 mg PO BID 07/30/22 08/12/22 History atomoxetine 60 mg capsule 60 mg PO DAILY 07/30/22 08/12/22 History (Strattera) docusate sodium 100 mg capsule 100 mg PO BID 07/30/22 08/12/22 History escitalopram oxalate 10 mg tablet 15 mg PO DAILY 07/30/22 08/12/22 History estradiol 0.1 mg/24 hr weekly 3 patch transdermal Q72H 07/30/22 08/12/22 History transdermal patch finasteride 5 mg tablet 5 mg PO DAILY 07/30/22 08/12/22 History lisinopril 20 mg tablet 20 mg PO DAILY 07/30/22 08/12/22 History mirtazapine 30 mg tablet 30 mg PO BEDTIME 07/30/22 08/12/22 History sennosides 8.6 mg tablet (senna) 8.6 mg PO BID 07/30/22 08/12/22 History topiramate 50 mg tablet 50 mg PO BEDTIME 07/30/22 08/12/22 History emtricitabine 200 mg-tenofovir 1 tab PO DAILY 08/12/22 08/12/22 History disoproxil fumarate 300 mg tablet pregabalin 150 mg capsule 150 mg PO BID 08/12/22 08/12/22 History torsemide 20 mg tablet 20 mg PO BID 08/12/22 08/12/22 History Allergies Allergies Allergy/AdvReac Type Severity Reaction Status Date / Time cephalexin Allergy Mild Hives Verified 08/12/22 12:05 Mental Status Exam Mental Status Exam Narrative: Appearance: casually groomed, bold, fair hygiene, in NAD Behavior: calmer Psychomotor: no agitation or retardation noted Speech: clear, hyperverbal not pressured, spontaneous, loud at times TP: tangential but no loose associations. TC: paranoid towards staff at [facility], not feeling safe Mood: good Affect: somnolent SI: denies HI: denies VH/AH: none Delusions: paranoia. Insight/judgment: poor x 2 into psychiatric symptoms and need for treatment. Memory/cog: alert, oriented x 3. poor attention. Assessment & Plan Assessment & Plan (1) Bipolar 1 disorder with moderate amber: Status: Acute Code(s): F31.12 - Bipolar disorder, current episode manic without psychotic features, moderate (2) Personality disorder in adult: Status: Acute Code(s): F60.9 - Personality disorder, unspecified Plan Ms. Treviño is a 47 year-old trans woman brought on sect 12a due to increase paranoia, labile mood, explosive behaviors from [facility] program where she has reside for the past 6 months. Per staff at [facility] program, pt started showing these symptoms in past 2 weeks after appendectomy. Unclear her psych hx. In the ED, pt presents as labile some paranoia noted. There are some characteriological traits to her presentation but I do suspect an underlying Bipolar Dirsorder exacerbating such traits. After discussing risks, benefits and alternative treatment option, pt did agree to stop stratera, hold on lexapro, schedule haldol 5mg po BID with temporary ativan while pt more stable. She also agree to start clonidine. PLAN 1. Julio Cesar to M3, CV, 15 minutes checks for safety. 2. d/c lexapro/ d/c strattera due to worsening of labile mood, paranoia 3. continue scheduled haldol 5mg po BID, decrease to ativan 0.5mg po BID (ativan while in ED as pt continues to work on recovery). continue clonidine 0.1mg po B ID 4. aftercare planning. Patient educated on: diagnosis, medication risk/benefits and substance abuse Informed Consent: understands Reason for continued inpatient stay Substantial Risk for: inability to function Statement Statement: I have reviewed the history and physical and performed a pertinent examination on my patient. No changes have occurred unless specified. If the History and Physical was not performed prior to admission, the Hospitalist's service will be consulted for completing the admission physical. Time Spent With Patient Time: Total time managing care of this patient today ____ minutes.
[2022-08-15] MEDS: Mirtazapine 15 MG TABLET PO (22:14)
[2022-08-15 22:15] VITALS: BP 128/82; PULSE 101; RESP 18; TEMP 36; O2SAT 98
[2022-08-15] MEDS: Topiramate 25 MG TABLET 50 MG PO (22:16)
[2022-08-15] MEDS: LORazepam 0.5 MG TABLET PO (22:16)
[2022-08-16 08:17] VITALS: BP 122/68; PULSE 84; RESP 16; TEMP 37.1; O2SAT 96
[2022-08-16] MEDS: Finasteride 5 MG TABLET PO (08:24)
[2022-08-16] MEDS: Pregabalin 150 MG CAPSULE PO ×2 (08:24→20:13)
[2022-08-16] MEDS: cloNIDine HCL 0.1 MG TABLET PO ×2 (08:24→20:12)
[2022-08-16] MEDS: Docusate Sodium 100 MG CAPSULE PO ×2 (08:24→20:13)
[2022-08-16] MEDS: HaloperidoL 5 MG TABLET PO ×2 (08:25→20:14)
[2022-08-16] MEDS: lisinopriL 20 MG TABLET PO (08:25)
[2022-08-16] MEDS: LORazepam 0.5 MG TABLET PO (08:25)
[2022-08-16] MEDS: Torsemide 20 MG TABLET PO ×2 (08:25→20:13)
[2022-08-16] MEDS: Sennosides 8.6 MG TABLET PO ×2 (08:25→20:15)
[2022-08-16] MEDS: Apixaban 5 MG TABLET PO ×2 (08:25→20:13)
[2022-08-16] MEDS: Emtricitabin/Tenofovir 200/300 TABLET 1 TAB PO (08:25)
[2022-08-16] MEDS: Amoxicillin/Potassium Clav 875 MG TABLET PO ×2 (08:25→20:13)
[2022-08-16] MEDS: Acetaminophen 325 MG TABLET 650 MG PO (13:18)
[2022-08-16] MEDS: hydrOXYzine HCL 25 MG TABLET PO (13:18)
[2022-08-16] MEDS: oxyCODONE HCl Immed Release 5 MG TABLET PO ×2 (13:39→20:23)
[2022-08-16] MEDS: OLANZapine 5 MG TABLET PO (13:40)
--- NOTE | 2022-08-16 16:04 | HO.PSYCHPN ---
Subjective Subjective Date of Service: 08/16/22 Reason For Visit: Dysregulated Subjective Notes: Conditional Voluntary Interim History: Pt denies suicidal or homicidal ideation. Pt request medical intervention not clinically indicated. Pt not able to return to [facility] program. Pt currently homeless. She slept through the night. She reports she can't go to assisted given recent surgery, in addition to not feeling safe. At times, explosive, less so than days prior. Medication Compliance: Yes Review of Systems Review of Systems Yes all other systems are reviewed and are negative Denies Sensory deficit (Neuro) Mental Status Exam Mental Status Exam Narrative: Appearance: casually groomed, bold, fair hygiene, in NAD Behavior: calmer Psychomotor: no agitation or retardation noted Speech: clear, hyperverbal not pressured, spontaneous, loud at times TP: tangential but no loose associations. TC: paranoid towards staff at [facility], not feeling safe Mood: good Affect: brighter SI: denies HI: denies VH/AH: none Delusions: paranoia. Insight/judgment: poor x 2 into psychiatric symptoms and need for treatment. Memory/cog: alert, oriented x 3. poor attention. Diagnostics Vital Signs (24Hr): Vital Signs - 24 hr 08/15/22 22:15 08/16/22 08:17 Temperature 96.8 F 98.7 F Pulse Rate 101 H 84 Respiratory Rate 18 16 Blood Pressure 128/82 122/68 Pulse Oximetry 98 96 Oxygen Delivery Method Room Air Room Air BMI result Body Mass Index 37.7 Labs 08/12/22 12:56 08/12/22 12:56 Medications Medications Current Medications Acetaminophen (Acetaminophen 325 Mg Tablet) 650 mg PO Q6H PRN PRN Reason: Headache/Pain Mild Scale (1-3) Last Admin: 08/16/22 13:18 Dose: 650 mg Al Hydroxide/Mg Hydroxide (Magnesium Hydrox/Alum Hydrox 30 Ml Oral.Susp) 30 ml PO Q6H PRN PRN Reason: Heartburn/Nausea Amoxicillin/Clavulanate Potassium (Amoxicillin/Potassium Clav 875 Mg Tablet) 875 mg PO Q12H [facility] Stop: 08/20/22 20:31 Last Admin: 08/16/22 08:25 Dose: 875 mg Apixaban (Apixaban 5 Mg Tablet) 5 mg PO BID NELLY Last Admin: 08/16/22 08:25 Dose: 5 mg Clonidine HCl (Clonidine Hcl 0.1 Mg Tablet) 0.1 mg PO BID [facility]; Protocol Last Admin: 08/16/22 08:24 Dose: 0.1 mg Docusate Sodium (Docusate Sodium 100 Mg Capsule) 100 mg PO BID [facility] Last Admin: 08/16/22 08:24 Dose: 100 mg Emtricitabine/Tenofovir (Emtricitabin/Tenofovir 200/300 Tablet) 1 tab PO DAILY [facility] Last Admin: 08/16/22 08:25 Dose: 1 tab Escitalopram Oxalate (Escitalopram Oxalate 5 Mg Tablet) 15 mg PO DAILY [facility] Last Admin: 08/13/22 08:31 Dose: 15 mg Finasteride (Finasteride 5 Mg Tablet) 5 mg PO DAILY [facility] Last Admin: 08/16/22 08:24 Dose: 5 mg Haloperidol (Haloperidol 5 Mg Tablet) 5 mg PO BID [facility] Last Admin: 08/16/22 08:25 Dose: 5 mg Hydroxyzine HCl (Hydroxyzine Hcl 25 Mg Tablet) 25 mg PO Q6H PRN PRN Reason: Anxiety Last Admin: 08/16/22 13:18 Dose: 25 mg Lisinopril (Lisinopril 20 Mg Tablet) 20 mg PO DAILY [facility]; Protocol Last Admin: 08/16/22 08:25 Dose: 20 mg Lorazepam (Lorazepam 0.5 Mg Tablet) 0.5 mg PO BID [facility] Last Admin: 08/16/22 08:25 Dose: 0.5 mg Magnesium Hydroxide (Milk Of Magnesia 30 Ml Oral.Susp) 30 ml PO DAILY PRN PRN Reason: Constipation Mirtazapine (Mirtazapine 15 Mg Tablet) 15 mg PO BEDTIME [facility] Last Admin: 08/15/22 22:14 Dose: 15 mg Nicotine (Nicotine 21 Mg Patch.Td24) 21 mg TRANSDERMA DAILY PRN PRN Reason: smoking cessation Nicotine Polacrilex (Nicotine Polacrilex 2 Mg Gum) 4 mg BUCCAL Q2H PRN PRN Reason: Nicotine Cravings Non-Formulary Medication (Estradiol) 3 patch TRANSDERMA Q72H [facility] Olanzapine (Olanzapine 5 Mg Tablet) 5 mg PO TID PRN PRN Reason: agitation Last Admin: 08/16/22 13:40 Dose: 5 mg Ondansetron HCl (Ondansetron Odt 8 Mg Tab.Rapdis) 8 mg TRANSLINGU Q8H PRN PRN Reason: nausea and vomiting Last Admin: 08/12/22 17:50 Dose: 8 mg Oxycodone HCl (Oxycodone Hcl Immed Release 5 Mg Tablet) 5 mg PO Q6H PRN PRN Reason: Pain, Severe (Pain Scale 7-10) Last Admin: 08/16/22 13:39 Dose: 5 mg Pharmacy Consult (Consult Rx Perform Med Rec) 1 each MISCELLANE ONCE PRN PRN Reason: Consult order Pregabalin (Pregabalin 150 Mg Capsule) 150 mg PO BID [facility] Last Admin: 08/16/22 08:24 Dose: 150 mg Senna (Sennosides 8.6 Mg Tablet) 8.6 mg PO BID [facility] Last Admin: 08/16/22 08:25 Dose: 8.6 mg Topiramate (Topiramate 25 Mg Tablet) 50 mg PO BEDTIME [facility] Last Admin: 08/15/22 22:16 Dose: 50 mg Torsemide (Torsemide 20 Mg Tablet) 20 mg PO BID [facility]; Protocol Last Admin: 08/16/22 08:25 Dose: 20 mg Trazodone HCl (Trazodone Hcl 50 Mg Tablet) 50 mg PO BEDTIME MRX1 PRN PRN Reason: Insomnia Allergies Allergies Allergy/AdvReac Type Severity Reaction Status Date / Time cephalexin Allergy Mild Hives Verified 08/12/22 12:05 Assessment & Plan Assessment & Plan (1) Bipolar 1 disorder with moderate amber: Status: Acute Code(s): F31.12 - Bipolar disorder, current episode manic without psychotic features, moderate (2) Personality disorder in adult: Status: Acute Code(s): F60.9 - Personality disorder, unspecified Plan Ms. Treviño is a 47 year-old trans woman brought on sect 12a due to increase paranoia, labile mood, explosive behaviors from [facility] where she has reside for the past 6 months. Per staff at [facility] program, pt started showing these symptoms in past 2 weeks after appendectomy. Unclear her psych hx. In the ED, pt presents as labile some paranoia noted. There are some characteriological traits to her presentation but I do suspect an underlying Bipolar Dirsorder exacerbating such traits. After discussing risks, benefits and alternative treatment option, pt did agree to stop stratera, hold on lexapro, schedule haldol 5mg po BID with temporary ativan while pt more stable. She also agree to start clonidine. PLAN 1. Julio Cesar to M3, CV, 15 minutes checks for safety. 2. d/c lexapro/ d/c strattera due to worsening of labile mood, paranoia 3. continue scheduled haldol 5mg po BID, decrease to ativan 0.5mg po BID (ativan while in ED as pt continues to work on recovery). continue clonidine 0.1mg po BID 4. aftercare planning. 08/16- pt does not need walker, should be instructed to change dressing on her own although observed by RN. Pt should be encouraged to attend groups. continue current medications. will dc ativan. Reason for continued inpatient stay Substantial Risk for: inability to function Time Spent With Patient Time: Total time managing care of this patient today ____ minutes.
[2022-08-16] MEDS: Topiramate 25 MG TABLET 50 MG PO (20:12)
[2022-08-16] MEDS: Mirtazapine 15 MG TABLET PO (20:15)
[2022-08-16 20:18] VITALS: BP 126/82; PULSE 91; TEMP 36.3; O2SAT 99
[2022-08-17 08:00] VITALS: BP 116/72; PULSE 80; RESP 18; TEMP 36.6; O2SAT 98
[2022-08-17] MEDS: cloNIDine HCL 0.1 MG TABLET PO ×2 (08:28→20:21)
[2022-08-17] MEDS: HaloperidoL 5 MG TABLET PO ×2 (08:28→20:23)
[2022-08-17] MEDS: Torsemide 20 MG TABLET PO ×2 (08:28→20:21)
[2022-08-17] MEDS: Emtricitabin/Tenofovir 200/300 TABLET 1 TAB PO (08:29)
[2022-08-17] MEDS: Sennosides 8.6 MG TABLET PO ×2 (08:30→20:20)
[2022-08-17] MEDS: Docusate Sodium 100 MG CAPSULE PO ×2 (08:30→20:22)
[2022-08-17] MEDS: Amoxicillin/Potassium Clav 875 MG TABLET PO ×2 (08:30→20:21)
[2022-08-17] MEDS: lisinopriL 20 MG TABLET PO (08:30)
[2022-08-17] MEDS: Apixaban 5 MG TABLET PO ×2 (08:31→20:22)
[2022-08-17] MEDS: Finasteride 5 MG TABLET PO (08:31)
[2022-08-17] MEDS: Pregabalin 150 MG CAPSULE PO ×2 (08:31→20:21)
[2022-08-17] MEDS: oxyCODONE HCl Immed Release 5 MG TABLET PO (09:51)
--- NOTE | 2022-08-17 14:29 | HO.PSYCHPN ---
Subjective Subjective Date of Service: 08/17/22 Reason For Visit: Dysregulated Subjective Notes: Conditional Voluntary Medical Problems Affecting Mental Status: No Interim History: met with patient. Discussed with Nursing. Chart reviewed. Isolative. No suicidal thoughts. With journalists and other writers reports feeling safe and supported and getting good care in the hospital. Is frustrated regarding [facility] environment and describes recent falls. Reports they do not want to return to the [facility] and hopeful for an alternative disposition plan. Denies depression, SI or psychosis. No concerns regarding current medication regimen Medication Compliance: Yes Side effects from medications: No Attending Groups: No Review of Systems Acute medical concerns: No Review of Systems Review of Systems recent surgery and no wound complications. Diagnostics Vital Signs (24Hr): Vital Signs - 24 hr 08/16/22 20:18 08/17/22 08:00 Temperature 97.3 F 97.9 F Pulse Rate 91 80 Respiratory Rate 18 Blood Pressure 126/82 116/72 Pulse Oximetry 99 98 Oxygen Delivery Method Room Air BMI result Body Mass Index 37.7 Labs 08/12/22 12:56 08/12/22 12:56 Medications Medications Current Medications Acetaminophen (Acetaminophen 325 Mg Tablet) 650 mg PO Q6H PRN PRN Reason: Headache/Pain Mild Scale (1-3) Last Admin: 08/16/22 13:18 Dose: 650 mg Al Hydroxide/Mg Hydroxide (Magnesium Hydrox/Alum Hydrox 30 Ml Oral.Susp) 30 ml PO Q6H PRN PRN Reason: Heartburn/Nausea Amoxicillin/Clavulanate Potassium (Amoxicillin/Potassium Clav 875 Mg Tablet) 875 mg PO Q12H [facility] Stop: 08/20/22 20:31 Last Admin: 08/17/22 08:30 Dose: 875 mg Apixaban (Apixaban 5 Mg Tablet) 5 mg PO BID [facility] Last Admin: 08/17/22 08:31 Dose: 5 mg Clonidine HCl (Clonidine Hcl 0.1 Mg Tablet) 0.1 mg PO BID [facility]; Protocol Last Admin: 08/17/22 08:28 Dose: 0.1 mg Docusate Sodium (Docusate Sodium 100 Mg Capsule) 100 mg PO BID [facility] Last Admin: 08/17/22 08:30 Dose: 100 mg Emtricitabine/Tenofovir (Emtricitabin/Tenofovir 200/300 Tablet) 1 tab PO DAILY [facility] Last Admin: 08/17/22 08:29 Dose: 1 tab Escitalopram Oxalate (Escitalopram Oxalate 5 Mg Tablet) 15 mg PO DAILY [facility] Last Admin: 08/13/22 08:31 Dose: 15 mg Finasteride (Finasteride 5 Mg Tablet) 5 mg PO DAILY [facility] Last Admin: 08/17/22 08:31 Dose: 5 mg Haloperidol (Haloperidol 5 Mg Tablet) 5 mg PO BID [facility] Last Admin: 08/17/22 08:28 Dose: 5 mg Hydroxyzine HCl (Hydroxyzine Hcl 25 Mg Tablet) 25 mg PO Q6H PRN PRN Reason: Anxiety Last Admin: 08/16/22 13:18 Dose: 25 mg Lisinopril (Lisinopril 20 Mg Tablet) 20 mg PO DAILY [facility]; Protocol Last Admin: 08/17/22 08:30 Dose: 20 mg Magnesium Hydroxide (Milk Of Magnesia 30 Ml Oral.Susp) 30 ml PO DAILY PRN PRN Reason: Constipation Mirtazapine (Mirtazapine 15 Mg Tablet) 15 mg PO BEDTIME [facility] Last Admin: 08/16/22 20:15 Dose: 15 mg Nicotine (Nicotine 21 Mg Patch.Td24) 21 mg TRANSDERMA DAILY PRN PRN Reason: smoking cessation Nicotine Polacrilex (Nicotine Polacrilex 2 Mg Gum) 4 mg BUCCAL Q2H PRN PRN Reason: Nicotine Cravings Non-Formulary Medication (Estradiol) 3 patch TRANSDERMA Q72H [facility] Olanzapine (Olanzapine 5 Mg Tablet) 5 mg PO TID PRN PRN Reason: agitation Last Admin: 08/16/22 13:40 Dose: 5 mg Ondansetron HCl (Ondansetron Odt 8 Mg Tab.Rapdis) 8 mg TRANSLINGU Q8H PRN PRN Reason: nausea and vomiting Last Admin: 08/12/22 17:50 Dose: 8 mg Oxycodone HCl (Oxycodone Hcl Immed Release 5 Mg Tablet) 5 mg PO Q6H PRN PRN Reason: Pain, Severe (Pain Scale 7-10) Last Admin: 08/17/22 09:51 Dose: 5 mg Pharmacy Consult (Consult Rx Perform Med Rec) 1 each MISCELLANE ONCE PRN PRN Reason: Consult order Pregabalin (Pregabalin 150 Mg Capsule) 150 mg PO BID [facility] Last Admin: 08/17/22 08:31 Dose: 150 mg Senna (Sennosides 8.6 Mg Tablet) 8.6 mg PO BID [facility] Last Admin: 08/17/22 08:30 Dose: 8.6 mg Topiramate (Topiramate 25 Mg Tablet) 50 mg PO BEDTIME [facility] Last Admin: 08/16/22 20:12 Dose: 50 mg Torsemide (Torsemide 20 Mg Tablet) 20 mg PO BID [facility]; Protocol Last Admin: 08/17/22 08:28 Dose: 20 mg Trazodone HCl (Trazodone Hcl 50 Mg Tablet) 50 mg PO BEDTIME MRX1 PRN PRN Reason: Insomnia Allergies Allergies Allergy/AdvReac Type Severity Reaction Status Date / Time cephalexin Allergy Mild Hives Verified 08/12/22 12:05 Assessment & Plan Assessment & Plan (1) Bipolar 1 disorder with moderate amber: Status: Acute Code(s): F31.12 - Bipolar disorder, current episode manic without psychotic features, moderate (2) Personality disorder in adult: Status: Acute Code(s): F60.9 - Personality disorder, unspecified Plan Ms. Treviño is a 47 year-old trans woman brought on sect 12a due to increase paranoia, labile mood, explosive behaviors from [employer] [facility] program where she has reside for the past 6 months. Per staff at [facility] program, pt started showing these symptoms in past 2 weeks after appendectomy. Unclear her psych hx. In the ED, pt presents as labile some paranoia noted. There are some characteriological traits to her presentation but I do suspect an underlying Bipolar Dirsorder exacerbating such traits. After discussing risks, benefits and alternative treatment option, pt did agree to stop stratera, hold on lexapro, schedule haldol 5mg po BID with temporary ativan while pt more stable. She also agree to start clonidine. PLAN 1. Julio Cesar to M3, CV, 15 minutes checks for safety. 2. d/c lexapro/ d/c strattera due to worsening of labile mood, paranoia 3. continue scheduled haldol 5mg po BID, decrease to ativan 0.5mg po BID (ativan while in ED as pt continues to work on recovery). continue clonidine 0.1mg po BID 4. aftercare planning. 08/16- pt does not need walker, should be instructed to change dressing on her own although observed by RN. Pt should be encouraged to attend groups. continue current medications. will dc ativan. 08/17/2022: No changes to current treatment plan Reason for continued inpatient stay Substantial Risk for: inability to function Time Spent With Patient Time: Total time managing care of this patient today ____ minutes.
--- NOTE | 2022-08-17 15:36 | PC.NURSE ---
1130 asked Pt if now was a good time to do dressing change. She reported that she had already changed it today. However if she decides to take a shower later she will have me change it. Dressing to lower abdomen is dry and intact @ at his time.
[2022-08-17 20:17] VITALS: BP 111/74; PULSE 86; TEMP 36.4; O2SAT 96
[2022-08-17] MEDS: Mirtazapine 15 MG TABLET PO (20:21)
[2022-08-17] MEDS: Topiramate 25 MG TABLET 50 MG PO (20:21)
[2022-08-18 07:45] VITALS: BP 120/68; PULSE 86; RESP 18; TEMP 36.6; O2SAT 97
[2022-08-18] MEDS: Finasteride 5 MG TABLET PO (08:09)
[2022-08-18] MEDS: Amoxicillin/Potassium Clav 875 MG TABLET PO ×2 (08:10→21:05)
[2022-08-18] MEDS: Emtricitabin/Tenofovir 200/300 TABLET 1 TAB PO (08:10)
[2022-08-18] MEDS: HaloperidoL 5 MG TABLET PO ×2 (08:10→21:05)
[2022-08-18] MEDS: Docusate Sodium 100 MG CAPSULE PO ×2 (08:10→21:04)
[2022-08-18] MEDS: Pregabalin 150 MG CAPSULE PO ×2 (08:11→21:03)
[2022-08-18] MEDS: Apixaban 5 MG TABLET PO ×2 (08:11→21:05)
[2022-08-18] MEDS: cloNIDine HCL 0.1 MG TABLET PO ×2 (08:11→21:05)
[2022-08-18] MEDS: Sennosides 8.6 MG TABLET PO ×2 (08:11→21:05)
[2022-08-18] MEDS: lisinopriL 20 MG TABLET PO (08:12)
[2022-08-18] MEDS: Torsemide 20 MG TABLET PO (08:12)
--- NOTE | 2022-08-18 13:37 | HO.PSYCHPN ---
Subjective Subjective Date of Service: 08/18/22 Reason For Visit: Dysregulated Subjective Notes: Conditional Voluntary Medical Problems Affecting Mental Status: No Interim History: met with patient. Discussed with Nursing. Painful gums. Chart reviewed. Isolative. No suicidal thoughts. With chart writer reports feeling safe and supported and getting good care in the hospital. Gums are painful- normally has dentures. No evidence of infection or thrush, but gums are swollen. Still reports they do not want to return to the nursing home and hopeful for an alternative disposition plan. Denies depression, SI or psychosis. No concerns regarding current medication regimen Medication Compliance: Yes Side effects from medications: No Attending Groups: Intermittent Review of Systems Acute medical concerns: No Review of Systems Review of Systems Gums are painful- normally has dentures. No evidence of infection or thrush, but gums are swollen. Able to eat and drink. Mental Status Exam Mental Status Exam Narrative: Appearance: casually groomed, bold, fair hygiene, in NAD Behavior: calmer Psychomotor: no agitation or retardation noted Speech: clear, hyperverbal not pressured, spontaneous, loud at times TP: tangential but no loose associations. TC: paranoid towards staff at nursing home, not feeling safe Mood: good Affect: brighter SI: denies HI: denies VH/AH: none Delusions: paranoia. Insight/judgment: poor x 2 into psychiatric symptoms and need for treatment. Memory/cog: alert, oriented x 3. poor attention. Diagnostics Vital Signs (24Hr): Vital Signs - 24 hr 08/17/22 20:17 08/18/22 07:45 Temperature 97.6 F 97.8 F Pulse Rate 86 86 Respiratory Rate 18 Blood Pressure 111/74 120/68 Pulse Oximetry 96 97 Oxygen Delivery Method Room Air Room Air BMI result Body Mass Index 37.7 Labs 08/12/22 12:56 08/12/22 12:56 Medications Medications Current Medications Acetaminophen (Acetaminophen 325 Mg Tablet) 650 mg PO Q6H PRN PRN Reason: Headache/Pain Mild Scale (1-3) Last Admin: 08/16/22 13:18 Dose: 650 mg Al Hydroxide/Mg Hydroxide (Magnesium Hydrox/Alum Hydrox 30 Ml Oral.Susp) 30 ml PO Q6H PRN PRN Reason: Heartburn/Nausea Amoxicillin/Clavulanate Potassium (Amoxicillin/Potassium Clav 875 Mg Tablet) 875 mg PO Q12H [facility] Stop: 08/20/22 20:31 Last Admin: 08/18/22 08:10 Dose: 875 mg Apixaban (Apixaban 5 Mg Tablet) 5 mg PO BID [facility] Last Admin: 08/18/22 08:11 Dose: 5 mg Clonidine HCl (Clonidine Hcl 0.1 Mg Tablet) 0.1 mg PO BID [facility]; Protocol Last Admin: 08/18/22 08:11 Dose: 0.1 mg Docusate Sodium (Docusate Sodium 100 Mg Capsule) 100 mg PO BID [facility] Last Admin: 08/18/22 08:10 Dose: 100 mg Emtricitabine/Tenofovir (Emtricitabin/Tenofovir 200/300 Tablet) 1 tab PO DAILY [facility] Last Admin: 08/18/22 08:10 Dose: 1 tab Escitalopram Oxalate (Escitalopram Oxalate 5 Mg Tablet) 15 mg PO DAILY [facility] Last Admin: 08/13/22 08:31 Dose: 15 mg Finasteride (Finasteride 5 Mg Tablet) 5 mg PO DAILY [facility] Last Admin: 08/18/22 08:09 Dose: 5 mg Haloperidol (Haloperidol 5 Mg Tablet) 5 mg PO BID [facility] Last Admin: 08/18/22 08:10 Dose: 5 mg Hydroxyzine HCl (Hydroxyzine Hcl 25 Mg Tablet) 25 mg PO Q6H PRN PRN Reason: Anxiety Last Admin: 08/16/22 13:18 Dose: 25 mg Lisinopril (Lisinopril 20 Mg Tablet) 20 mg PO DAILY [facility]; Protocol Last Admin: 08/18/22 08:12 Dose: 20 mg Magnesium Hydroxide (Milk Of Magnesia 30 Ml Oral.Susp) 30 ml PO DAILY PRN PRN Reason: Constipation Mirtazapine (Mirtazapine 15 Mg Tablet) 15 mg PO BEDTIME [facility] Last Admin: 08/17/22 20:21 Dose: 15 mg Nicotine (Nicotine 21 Mg Patch.Td24) 21 mg TRANSDERMA DAILY PRN PRN Reason: smoking cessation Nicotine Polacrilex (Nicotine Polacrilex 2 Mg Gum) 4 mg BUCCAL Q2H PRN PRN Reason: Nicotine Cravings Non-Formulary Medication (Estradiol) 3 patch TRANSDERMA Q72H [facility] Nystatin (Nystatin Cream 15 Gm Tube) 1 appl TOPICAL BID [facility]; Protocol Last Admin: 08/18/22 08:14 Dose: 1 appl Olanzapine (Olanzapine 5 Mg Tablet) 5 mg PO TID PRN PRN Reason: agitation Last Admin: 08/16/22 13:40 Dose: 5 mg Ondansetron HCl (Ondansetron Odt 8 Mg Tab.Rapdis) 8 mg TRANSLINGU Q8H PRN PRN Reason: nausea and vomiting Last Admin: 08/12/22 17:50 Dose: 8 mg Oxycodone HCl (Oxycodone Hcl Immed Release 5 Mg Tablet) 5 mg PO Q6H PRN PRN Reason: severe pain (7-10) Last Admin: 08/18/22 08:12 Dose: 5 mg Pharmacy Consult (Consult Rx Perform Med Rec) 1 each MISCELLANE ONCE PRN PRN Reason: Consult order Pregabalin (Pregabalin 150 Mg Capsule) 150 mg PO BID [facility] Last Admin: 08/18/22 08:11 Dose: 150 mg Senna (Sennosides 8.6 Mg Tablet) 8.6 mg PO BID [facility] Last Admin: 08/18/22 08:11 Dose: 8.6 mg Topiramate (Topiramate 25 Mg Tablet) 50 mg PO BEDTIME [facility] Last Admin: 08/17/22 20:21 Dose: 50 mg Torsemide (Torsemide 20 Mg Tablet) 20 mg PO BID [facility]; Protocol Last Admin: 08/18/22 08:12 Dose: 20 mg Trazodone HCl (Trazodone Hcl 50 Mg Tablet) 50 mg PO BEDTIME MRX1 PRN PRN Reason: Insomnia Allergies Allergies Allergy/AdvReac Type Severity Reaction Status Date / Time cephalexin Allergy Mild Hives Verified 08/12/22 12:05 Assessment & Plan Assessment & Plan (1) Bipolar 1 disorder with moderate amber: Status: Acute Code(s): F31.12 - Bipolar disorder, current episode manic without psychotic features, moderate (2) Personality disorder in adult: Status: Acute Code(s): F60.9 - Personality disorder, unspecified Plan Ms. Treviño is a 47 year-old trans woman brought on sect 12a due to increase paranoia, labile mood, explosive behaviors from [facility] where she has reside for the past 6 months. Per staff at [facility], pt started showing these symptoms in past 2 weeks after appendectomy. Unclear her psych hx. In the ED, pt presents as labile some paranoia noted. There are some characteriological traits to her presentation but I do suspect an underlying Bipolar Dirsorder exacerbating such traits. After discussing risks, benefits and alternative treatment option, pt did agree to stop stratera, hold on lexapro, schedule haldol 5mg po BID with temporary ativan while pt more stable. She also agree to start clonidine. PLAN 1. Julio Cesar to M3, CV, 15 minutes checks for safety. 2. d/c lexapro/ d/c strattera due to worsening of labile mood, paranoia 3. continue scheduled haldol 5mg po BID, decrease to ativan 0.5mg po BID (ativan while in ED as pt continues to work on recovery). continue clonidine 0.1mg po BID 4. aftercare planning. 08/16- pt does not need walker, should be instructed to change dressing on her own although observed by RN. Pt should be encouraged to attend groups. continue current medications. will dc ativan. 08/18/2022: Order mouth wash for sore gums, otherwise no changes to current treatment plan Reason for continued inpatient stay Substantial Risk for: harm to self Time Spent With Patient Time: Total time managing care of this patient today ____ minutes.
--- NOTE | 2022-08-18 15:31 | PC.NURSE ---
dressing changed to abdomen. Incision area without drainage, minimal redness. Telfa Pad with op site applied. Pt tolerated well.
[2022-08-18 20:15] VITALS: BP 141/75; PULSE 90; RESP 18; TEMP 36.1; O2SAT 97
[2022-08-18] MEDS: Topiramate 25 MG TABLET 50 MG PO (21:03)
[2022-08-18] MEDS: Mirtazapine 15 MG TABLET PO (21:05)
--- NOTE | 2022-08-19 08:52 | HO.PSYCHPN ---
Subjective Subjective Date of Service: 08/19/22 Reason For Visit: Dysregulated Subjective Notes: Conditional Voluntary Interim History: Per nursing, pt had a good weekend without incidents or other altercations with peers or staff. Pt continues to denied SI/HI. She would like to continue treatment for both psychiatric and substance use treatment. Pt reports sleeping and eating well. Pt taking medications as prescribed. No behavioral concerns. Medication Compliance: Yes Review of Systems Review of Systems Gums are painful- normally has dentures. No evidence of infection or thrush, but gums are swollen. Able to eat and drink. Yes all other systems are reviewed and are negative Denies Sensory deficit (Neuro) Mental Status Exam Mental Status Exam Narrative: Appearance: casually groomed, bold, fair hygiene, in NAD Behavior: calmer Psychomotor: no agitation or retardation noted Speech: clear, hyperverbal not pressured, spontaneous, loud at times TP: tangential but no loose associations. TC: paranoid towards staff at [facility], not feeling safe Mood: good Affect: brighter SI: denies HI: denies VH/AH: none Delusions: paranoia. Insight/judgment: poor x 2 into psychiatric symptoms and need for treatment. Memory/cog: alert, oriented x 3. poor attention. Diagnostics Vital Signs (24Hr): Vital Signs - 24 hr 08/18/22 20:15 Temperature 97.0 F Pulse Rate 90 Respiratory Rate 18 Blood Pressure 141/75 H Pulse Oximetry 97 Oxygen Delivery Method Room Air BMI result Body Mass Index 37.7 Labs 08/12/22 12:56 08/12/22 12:56 Medications Medications Current Medications Acetaminophen (Acetaminophen 325 Mg Tablet) 650 mg PO Q6H PRN PRN Reason: Headache/Pain Mild Scale (1-3) Last Admin: 08/16/22 13:18 Dose: 650 mg Al Hydroxide/Mg Hydroxide (Magnesium Hydrox/Alum Hydrox 30 Ml Oral.Susp) 30 ml PO Q6H PRN PRN Reason: Heartburn/Nausea Amoxicillin/Clavulanate Potassium (Amoxicillin/Potassium Clav 875 Mg Tablet) 875 mg PO Q12H [facility] Stop: 08/20/22 20:31 Last Admin: 08/18/22 21:05 Dose: 875 mg Apixaban (Apixaban 5 Mg Tablet) 5 mg PO BID [facility] Last Admin: 08/18/22 21:05 Dose: 5 mg Clonidine HCl (Clonidine Hcl 0.1 Mg Tablet) 0.1 mg PO BID [facility]; Protocol Last Admin: 08/18/22 21:05 Dose: 0.1 mg Docusate Sodium (Docusate Sodium 100 Mg Capsule) 100 mg PO BID [facility] Last Admin: 08/18/22 21:04 Dose: 100 mg Emtricitabine/Tenofovir (Emtricitabin/Tenofovir 200/300 Tablet) 1 tab PO DAILY [facility] Last Admin: 08/18/22 08:10 Dose: 1 tab Escitalopram Oxalate (Escitalopram Oxalate 5 Mg Tablet) 15 mg PO DAILY [facility] Last Admin: 08/13/22 08:31 Dose: 15 mg Finasteride (Finasteride 5 Mg Tablet) 5 mg PO DAILY [facility] Last Admin: 08/18/22 08:09 Dose: 5 mg Haloperidol (Haloperidol 5 Mg Tablet) 5 mg PO BID [facility] Last Admin: 08/18/22 21:05 Dose: 5 mg Hydroxyzine HCl (Hydroxyzine Hcl 25 Mg Tablet) 25 mg PO Q6H PRN PRN Reason: Anxiety Last Admin: 08/16/22 13:18 Dose: 25 mg Lidocaine/Diphenhydr/Alum/Mg/Simeth (Mag&Al/Sim/Diphenhyd/Lidocaine 10 Ml Oral.Susp) 10 ml PO Q4H PRN; Protocol PRN Reason: painful gums Last Admin: 08/18/22 18:03 Dose: 10 ml Lisinopril (Lisinopril 20 Mg Tablet) 20 mg PO DAILY [facility]; Protocol Last Admin: 08/18/22 08:12 Dose: 20 mg Magnesium Hydroxide (Milk Of Magnesia 30 Ml Oral.Susp) 30 ml PO DAILY PRN PRN Reason: Constipation Mirtazapine (Mirtazapine 15 Mg Tablet) 15 mg PO BEDTIME [facility] Last Admin: 08/18/22 21:05 Dose: 15 mg Nicotine (Nicotine 21 Mg Patch.Td24) 21 mg TRANSDERMA DAILY PRN PRN Reason: smoking cessation Nicotine Polacrilex (Nicotine Polacrilex 2 Mg Gum) 4 mg BUCCAL Q2H PRN PRN Reason: Nicotine Cravings Non-Formulary Medication (Estradiol) 3 patch TRANSDERMA Q72H [facility] Nystatin (Nystatin Cream 15 Gm Tube) 1 appl TOPICAL BID [facility]; Protocol Last Admin: 08/18/22 21:02 Dose: 1 appl Olanzapine (Olanzapine 5 Mg Tablet) 5 mg PO TID PRN PRN Reason: agitation Last Admin: 08/16/22 13:40 Dose: 5 mg Ondansetron HCl (Ondansetron Odt 8 Mg Tab.Rapdis) 8 mg TRANSLINGU Q8H PRN PRN Reason: nausea and vomiting Last Admin: 08/12/22 17:50 Dose: 8 mg Oxycodone HCl (Oxycodone Hcl Immed Release 5 Mg Tablet) 5 mg PO Q6H PRN PRN Reason: severe pain (7-10) Last Admin: 08/18/22 21:11 Dose: 5 mg Pharmacy Consult (Consult Rx Perform Med Rec) 1 each MISCELLANE ONCE PRN PRN Reason: Consult order Pregabalin (Pregabalin 150 Mg Capsule) 150 mg PO BID [facility] Last Admin: 08/18/22 21:03 Dose: 150 mg Senna (Sennosides 8.6 Mg Tablet) 8.6 mg PO BID [facility] Last Admin: 08/18/22 21:05 Dose: 8.6 mg Topiramate (Topiramate 25 Mg Tablet) 50 mg PO BEDTIME [facility] Last Admin: 08/18/22 21:03 Dose: 50 mg Torsemide (Torsemide 20 Mg Tablet) 20 mg PO BID [facility]; Protocol Last Admin: 08/19/22 00:04 Dose: Not Given Trazodone HCl (Trazodone Hcl 50 Mg Tablet) 50 mg PO BEDTIME MRX1 PRN PRN Reason: Insomnia Allergies Allergies Allergy/AdvReac Type Severity Reaction Status Date / Time cephalexin Allergy Mild Hives Verified 08/12/22 12:05 Assessment & Plan Assessment & Plan (1) Bipolar 1 disorder with moderate amber: Status: Acute Code(s): F31.12 - Bipolar disorder, current episode manic without psychotic features, moderate (2) Personality disorder in adult: Status: Acute Code(s): F60.9 - Personality disorder, unspecified Plan Ms. Treviño is a 47 year-old trans woman brought on sect 12a due to increase paranoia, labile mood, explosive behaviors from [facility] where she has reside for the past 6 months. Per staff at [facility], pt started showing these symptoms in past 2 weeks after appendectomy. Unclear her psych hx. In the ED, pt presents as labile some paranoia noted. There are some characteriological traits to her presentation but I do suspect an underlying Bipolar Dirsorder exacerbating such traits. After discussing risks, benefits and alternative treatment option, pt did agree to stop stratera, hold on lexapro, schedule haldol 5mg po BID with temporary ativan while pt more stable. She also agree to start clonidine. PLAN 1. Julio Cesar to M3, CV, 15 minutes checks for safety. 2. d/c lexapro/ d/c strattera due to worsening of labile mood, paranoia 3. continue scheduled haldol 5mg po BID, decrease to ativan 0.5mg po BID (ativan while in ED as pt continues to work on recovery). continue clonidine 0.1mg po BID 4. aftercare planning. 08/16- pt does not need walker, should be instructed to change dressing on her own although observed by RN. Pt should be encouraged to attend groups. continue current medications. will dc ativan. 08/18/2022: Order mouth wash for sore gums, otherwise no changes to current treatment plan 08/19 pt less labile, calmer, no SI/HI. She is taking medications as prescribed. No side effects noted or reported. Reason for continued inpatient stay Substantial Risk for: inability to function Time Spent With Patient Time: Total time managing care of this patient today ____ minutes.
[2022-08-19 08:58] VITALS: BP 160/103; PULSE 104; TEMP 36.1; O2SAT 100
[2022-08-19] MEDS: Emtricitabin/Tenofovir 200/300 TABLET 1 TAB PO (09:12)
[2022-08-19] MEDS: lisinopriL 20 MG TABLET PO (09:12)
[2022-08-19] MEDS: Finasteride 5 MG TABLET PO (09:12)
[2022-08-19] MEDS: Sennosides 8.6 MG TABLET PO ×2 (09:13→19:52)
[2022-08-19] MEDS: Pregabalin 150 MG CAPSULE PO ×2 (09:13→19:52)
[2022-08-19] MEDS: Docusate Sodium 100 MG CAPSULE PO ×2 (09:13→19:53)
[2022-08-19] MEDS: Amoxicillin/Potassium Clav 875 MG TABLET PO ×2 (09:13→19:52)
[2022-08-19] MEDS: Torsemide 20 MG TABLET PO ×2 (09:14→19:53)
[2022-08-19] MEDS: Apixaban 5 MG TABLET PO ×2 (09:14→19:53)
[2022-08-19] MEDS: HaloperidoL 5 MG TABLET PO ×2 (09:14→19:52)
[2022-08-19] MEDS: cloNIDine HCL 0.1 MG TABLET PO ×2 (09:14→19:53)
[2022-08-19] MEDS: OLANZapine 5 MG TABLET PO ×2 (13:34→16:37)
[2022-08-19] MEDS: hydrOXYzine HCL 25 MG TABLET PO (18:00)
[2022-08-19 19:45] VITALS: BP 103/62; PULSE 85; TEMP 36.3; O2SAT 95
[2022-08-19] MEDS: Acetaminophen 325 MG TABLET 650 MG PO (19:50)
[2022-08-19] MEDS: Topiramate 25 MG TABLET 50 MG PO (19:51)
[2022-08-19] MEDS: Mirtazapine 15 MG TABLET PO (19:53)
[2022-08-20 08:20] VITALS: BP 136/79; PULSE 97; TEMP 36.2; O2SAT 98
[2022-08-20] MEDS: Sennosides 8.6 MG TABLET PO ×2 (08:31→21:40)
[2022-08-20] MEDS: Pregabalin 150 MG CAPSULE PO ×2 (08:31→21:39)
[2022-08-20] MEDS: Emtricitabin/Tenofovir 200/300 TABLET 1 TAB PO (08:31)
[2022-08-20] MEDS: lisinopriL 20 MG TABLET PO (08:31)
[2022-08-20] MEDS: Amoxicillin/Potassium Clav 875 MG TABLET PO ×2 (08:31→21:40)
[2022-08-20] MEDS: Apixaban 5 MG TABLET PO ×2 (08:32→21:41)
[2022-08-20] MEDS: Torsemide 20 MG TABLET PO (08:32)
[2022-08-20] MEDS: Docusate Sodium 100 MG CAPSULE PO ×2 (08:32→21:40)
[2022-08-20] MEDS: HaloperidoL 5 MG TABLET PO ×2 (08:32→21:41)
[2022-08-20] MEDS: cloNIDine HCL 0.1 MG TABLET PO ×2 (08:33→21:41)
[2022-08-20] MEDS: Finasteride 5 MG TABLET PO (08:33)
[2022-08-20] MEDS: OLANZapine 5 MG TABLET PO ×2 (10:32→14:27)
--- NOTE | 2022-08-20 10:44 | HO.PSYCHPN ---
Subjective Subjective Date of Service: 08/20/22 Reason For Visit: Dysregulated Interim History: Per nursing, pt slept through the night. No behavioral concerns. Pt continues to denied SI/HI. She would like to continue treatment for both psychiatric and substance use treatment. Pt reports sleeping and eating well. Pt taking medications as prescribed. No behavioral concerns. Dr. Schultz may remove kentrell today prior to transfer tomorrow to sober living. Medication Compliance: Yes Side effects from medications: No Review of Systems Review of Systems Gums are painful- normally has dentures. No evidence of infection or thrush, but gums are swollen. Able to eat and drink. Yes all other systems are reviewed and are negative Denies Sensory deficit (Neuro) Mental Status Exam Mental Status Exam Narrative: Appearance: casually groomed, bold, fair hygiene, in NAD Behavior: calmer Psychomotor: no agitation or retardation noted Speech: clear, hyperverbal not pressured, spontaneous, loud at times TP: tangential but no loose associations. TC: paranoid towards staff at [facility], not feeling safe Mood: good Affect: brighter SI: denies HI: denies VH/AH: none Delusions: paranoia. Insight/judgment: poor x 2 into psychiatric symptoms and need for treatment. Memory/cog: alert, oriented x 3. poor attention. Diagnostics Vital Signs (24Hr): Vital Signs - 24 hr 08/19/22 19:45 08/20/22 08:20 Temperature 97.3 F 97.1 F Pulse Rate 85 97 Blood Pressure 103/62 136/79 Pulse Oximetry 95 98 Oxygen Delivery Method Room Air Room Air BMI result Body Mass Index 37.7 Labs 08/12/22 12:56 08/12/22 12:56 Medications Medications Current Medications Acetaminophen (Acetaminophen 325 Mg Tablet) 650 mg PO Q6H PRN PRN Reason: Headache/Pain Mild Scale (1-3) Last Admin: 08/19/22 19:50 Dose: 650 mg Al Hydroxide/Mg Hydroxide (Magnesium Hydrox/Alum Hydrox 30 Ml Oral.Susp) 30 ml PO Q6H PRN PRN Reason: Heartburn/Nausea Amoxicillin/Clavulanate Potassium (Amoxicillin/Potassium Clav 875 Mg Tablet) 875 mg PO Q12H [facility] Stop: 08/20/22 20:31 Last Admin: 08/20/22 08:31 Dose: 875 mg Apixaban (Apixaban 5 Mg Tablet) 5 mg PO BID [facility] Last Admin: 08/20/22 08:32 Dose: 5 mg Clonidine HCl (Clonidine Hcl 0.1 Mg Tablet) 0.1 mg PO BID [facility]; Protocol Last Admin: 08/20/22 08:33 Dose: 0.1 mg Docusate Sodium (Docusate Sodium 100 Mg Capsule) 100 mg PO BID [facility] Last Admin: 08/20/22 08:32 Dose: 100 mg Emtricitabine/Tenofovir (Emtricitabin/Tenofovir 200/300 Tablet) 1 tab PO DAILY [facility] Last Admin: 08/20/22 08:31 Dose: 1 tab Escitalopram Oxalate (Escitalopram Oxalate 5 Mg Tablet) 15 mg PO DAILY [facility] Last Admin: 08/13/22 08:31 Dose: 15 mg Finasteride (Finasteride 5 Mg Tablet) 5 mg PO DAILY [facility] Last Admin: 08/20/22 08:33 Dose: 5 mg Haloperidol (Haloperidol 5 Mg Tablet) 5 mg PO BID [facility] Last Admin: 08/20/22 08:32 Dose: 5 mg Hydroxyzine HCl (Hydroxyzine Hcl 25 Mg Tablet) 25 mg PO Q6H PRN PRN Reason: Anxiety Last Admin: 08/19/22 18:00 Dose: 25 mg Lidocaine/Diphenhydr/Alum/Mg/Simeth (Mag&Al/Sim/Diphenhyd/Lidocaine 10 Ml Oral.Susp) 10 ml PO Q4H PRN; Protocol PRN Reason: painful gums Last Admin: 08/20/22 10:33 Dose: 10 ml Lisinopril (Lisinopril 20 Mg Tablet) 20 mg PO DAILY [facility]; Protocol Last Admin: 08/20/22 08:31 Dose: 20 mg Magnesium Hydroxide (Milk Of Magnesia 30 Ml Oral.Susp) 30 ml PO DAILY PRN PRN Reason: Constipation Mirtazapine (Mirtazapine 15 Mg Tablet) 15 mg PO BEDTIME [facility] Last Admin: 08/19/22 19:53 Dose: 15 mg Nicotine (Nicotine 21 Mg Patch.Td24) 21 mg TRANSDERMA DAILY PRN PRN Reason: smoking cessation Nicotine Polacrilex (Nicotine Polacrilex 2 Mg Gum) 4 mg BUCCAL Q2H PRN PRN Reason: Nicotine Cravings Non-Formulary Medication (Estradiol) 3 patch TRANSDERMA Q72H [facility] Nystatin (Nystatin Cream 15 Gm Tube) 1 appl TOPICAL BID [facility]; Protocol Last Admin: 08/20/22 08:34 Dose: 1 appl Olanzapine (Olanzapine 5 Mg Tablet) 5 mg PO TID PRN PRN Reason: agitation Last Admin: 08/20/22 10:32 Dose: 5 mg Ondansetron HCl (Ondansetron Odt 8 Mg Tab.Rapdis) 8 mg TRANSLINGU Q8H PRN PRN Reason: nausea and vomiting Last Admin: 08/12/22 17:50 Dose: 8 mg Oxycodone HCl (Oxycodone Hcl Immed Release 5 Mg Tablet) 5 mg PO Q6H PRN PRN Reason: severe pain (7-10) Last Admin: 08/19/22 10:21 Dose: 5 mg Pharmacy Consult (Consult Rx Perform Med Rec) 1 each MISCELLANE ONCE PRN PRN Reason: Consult order Pregabalin (Pregabalin 150 Mg Capsule) 150 mg PO BID [facility] Last Admin: 08/20/22 08:31 Dose: 150 mg Senna (Sennosides 8.6 Mg Tablet) 8.6 mg PO BID [facility] Last Admin: 08/20/22 08:31 Dose: 8.6 mg Topiramate (Topiramate 25 Mg Tablet) 50 mg PO BEDTIME [facility] Last Admin: 08/19/22 19:51 Dose: 50 mg Torsemide (Torsemide 20 Mg Tablet) 20 mg PO BID [facility]; Protocol Last Admin: 08/20/22 08:32 Dose: 20 mg Trazodone HCl (Trazodone Hcl 50 Mg Tablet) 50 mg PO BEDTIME MRX1 PRN PRN Reason: Insomnia Allergies Allergies Allergy/AdvReac Type Severity Reaction Status Date / Time cephalexin Allergy Mild Hives Verified 08/12/22 12:05 Assessment & Plan Assessment & Plan (1) Bipolar 1 disorder with moderate amber: Status: Acute Code(s): F31.12 - Bipolar disorder, current episode manic without psychotic features, moderate (2) Personality disorder in adult: Status: Acute Code(s): F60.9 - Personality disorder, unspecified Plan Ms. Treviño is a 47 year-old trans woman brought on sect 12a due to increase paranoia, labile mood, explosive behaviors from [facility] where she has reside for the past 6 months. Per staff at [facility], pt started showing these symptoms in past 2 weeks after appendectomy. Unclear her psych hx. In the ED, pt presents as labile some paranoia noted. There are some characteriological traits to her presentation but I do suspect an underlying Bipolar Dirsorder exacerbating such traits. After discussing risks, benefits and alternative treatment option, pt did agree to stop stratera, hold on lexapro, schedule haldol 5mg po BID with temporary ativan while pt more stable. She also agree to start clonidine. PLAN 1. Julio Cesar to M3, CV, 15 minutes checks for safety. 2. d/c lexapro/ d/c strattera due to worsening of labile mood, paranoia 3. continue scheduled haldol 5mg po BID, decrease to ativan 0.5mg po BID (ativan while in ED as pt continues to work on recovery). continue clonidine 0.1mg po BID 4. aftercare planning. 08/16- pt does not need walker, should be instructed to change dressing on her own although observed by RN. Pt should be encouraged to attend groups. continue current medications. will dc ativan. 08/18/2022: Order mouth wash for sore gums, otherwise no changes to current treatment plan 08/19 pt less labile, calmer, no SI/HI. She is taking medications as prescribed. No side effects noted or reported. 08/20 continue current medications. pt to be discharged tomorrow. Reason for continued inpatient stay Substantial Risk for: stable for discharge Time Spent With Patient Time: Total time managing care of this patient today ____ minutes.
[2022-08-20 21:35] VITALS: BP 125/84; PULSE 95; RESP 18; TEMP 36.3; O2SAT 99
[2022-08-20] MEDS: Mirtazapine 15 MG TABLET PO (21:42)
[2022-08-20] MEDS: Topiramate 25 MG TABLET 50 MG PO (21:42)
--- NOTE | 2022-08-21 07:48 | PM.PSYDC ---
DS: Providers Provider Date of Service: 08/21/22 Date of admission: 08/14/22 20:51 Primary care physician: Unknown Physician DS: Diagnosis Discharge Diagnosis (1) Bipolar 1 disorder with moderate amber: Status: Acute (2) Personality disorder in adult: Status: Acute DS: Medications Discharge Medications Home Medications: Previous Rx's Medication Instructions Recorded amoxicillin 875 mg-potassium 1 tab PO Q12H #20 tabs 08/12/22 clavulanate 125 mg tablet Mag&Al/Sim/Diphenhyd/Lidocaine #1 ea 08/21/22 [Magic Mouthwash] apixaban 5 mg tablet (Eliquis) 5 mg PO BID #60 tabs 08/21/22 clonidine HCl 0.1 mg tablet 0.1 mg PO BID #60 tabs 08/21/22 docusate sodium 100 mg capsule 100 mg PO BID #60 caps 08/21/22 emtricitabine 200 mg-tenofovir 1 tab PO DAILY #30 tabs 08/21/22 disoproxil fumarate 300 mg tablet (Truvada) estradiol 0.1 mg/24 hr weekly 3 patch transdermal Q72H #12 ea 08/21/22 transdermal patch finasteride 5 mg tablet 5 mg PO DAILY #30 tabs 08/21/22 haloperidol 5 mg tablet 5 mg PO BID #60 tabs 08/21/22 lisinopril 20 mg tablet 20 mg PO DAILY #30 tabs 08/21/22 mirtazapine 15 mg tablet 15 mg PO BEDTIME #30 tabs 08/21/22 nystatin 100,000 unit/gram topical 1 appl topical BID #15 grams 08/21/22 cream ondansetron 8 mg disintegrating 8 mg translingual Q8H PRN nausea 08/21/22 tablet and vomiting #10 tabs pregabalin 150 mg capsule (Lyrica) 150 mg PO BID #60 caps 08/21/22 sennosides 8.6 mg tablet (Senna 8.6 mg PO BID #60 tabs 08/21/22 Lax) topiramate 50 mg capsule,extended 50 mg PO BEDTIME #30 caps 08/21/22 release 24 hr torsemide 20 mg tablet 20 mg PO BID #60 tabs 08/21/22 Mental Status Exam Mental Status Exam Narrative: Appearance: casually groomed, bold, fair hygiene, in NAD Behavior: calmer Psychomotor: no agitation or retardation noted Speech: clear, regular rate/rhythm, spontaneous, TP: tangential but no loose associations. TC: paranoid towards staff at [facility], not feeling safe Mood: good Affect: brighter, less labile SI: denies HI: denies VH/AH: none Delusions: none Insight/judgment: fair x 2. Memory/cog: alert, oriented x 3. Grossly intact to conversational testing DS: Summary Hospital Course Hospital Course: Ms. Treviño is a 47 y/o trans woman who was brought on sect 12a from [facility] program due to presenting as paranoid, labile, irritable. Utox is negative. Pt has been at program for past 6 months and staff at [facility] program report after she had surgery for appendecitis pt later presented as labile, accusatory thought to be secondary to paranoia, irritable. Utox is negative. Pt seen in ED. Pt presents as hyperverbal, irritable edge. Pt reports she has been in this program for the past 6 months and has worked very hard on recovery. Pt reports e new staff at program who she does not trust. She reports she has filed complaints against this staff and believes these 3 staff were fired and now going after her (program reports the staff continue to work there). Pt several times at edge of becoming more irritable when she thought this jingle writer was not paying attention to her as this jingle writer asked for clarifying question. Pt denies SI/HI. She does report fear for her life as she thinks staff from [facility] will go after her. She reports her mental health is the best I've ever been, my medications as working! As she also becomes tearful. Pt initially declined any medication changes and started yelling at this jingle writer to leave. Pt later able to calm down and some insight that I need anger management, I know. On the unit, pt presents more somnolent. She continues to denied suicidal or homicidal ideation. Pt slept through the night and has been taking medications as prescribed. Pt reports she wants to go to SNF, however, she does not qualify for such level of care. Pt continues to report paranoia towards staff at [facility]. Past Psychiatric History: Inpatient: past inpt admission but no detail provided OP: none currently.? HOSPITAL COURSE On the unit, pt was admitted on a CV and placed on 15 minutes checks for safety. Pt initially presented as very labile and explosive. some degree of paranoia towards staff at [facility] program. After discussing risks, benefits and alternative treatment options, pt agreed to discontinue medication that could worsen labile mood including antidepressant, lexapro and strattera for attention problems. Pt agreed to take low dose of haldol 5mg po BID. She was also started on clonidine.She was continued on remeron for sleep Her affect gradually presented as much less labile, calmer, less intrusive. She does have characteriological traits to her presentation but underlying mood disorder also present which in turn exacerbates personality traits. There was no need for chemical or physical restraints. Pt was sleeping and eating well. She advocated to continue treatment in residential dual dx substance use treatment program. Status at Discharge Cognitive/behavioral status at discharge: Pt much less labile. No SI/HI. No psychosis or delusions. No signs of aggression towards self or others. No SI/HI. Functional status at discharge: independent ambulation Overall status at discharge: patient is progressing back to baseline Time Spent with Patient Time attestation: Total time managing care of this patient today _30___ minutes. Time spent: Greater than 30 minutes Discharge Plan Discharge Anticipated Discharge Date/Time: 08/21/22 07:32 Patient Disposition: Home, Self-Care Discharge Diagnosis: Bipolar Disorder PD Referrals: [facility] [Provider Group] - 1 Week Discharge Medications: New amoxicillin-pot clavulanate 875-125 mg tablet 1 tab PO Q12H Qty: 20 0RF clonidine HCl 0.1 mg Tablet 0.1 mg PO BID Qty: 60 0RF Protocol: Hold for SBP< HOLD for SBP < : 90 lisinopril 20 mg Tablet 20 mg PO DAILY Qty: 30 0RF Protocol: Hold for SBP< HOLD for SBP < : 90 mirtazapine 15 mg Tablet 15 mg PO BEDTIME Qty: 30 0RF emtricitabine-tenofovir (TDF) [Truvada] 200-300 mg Tablet 1 tab PO DAILY Qty: 30 0RF pregabalin [Lyrica] 150 mg Capsule 150 mg PO BID Qty: 60 0RF Eliquis 5 mg Tablet 5 mg PO BID Qty: 60 0RF topiramate 50 mg capsule,extended release 24hr 50 mg PO BEDTIME Qty: 30 0RF haloperidol 5 mg Tablet 5 mg PO BID Qty: 60 0RF torsemide 20 mg Tablet 20 mg PO BID Qty: 60 0RF Protocol: Hold for SBP< HOLD for SBP < : 90 docusate sodium 100 mg Capsule 100 mg PO BID Qty: 60 0RF sennosides [Senna Lax] 8.6 mg Tablet 8.6 mg PO BID Qty: 60 0RF ondansetron 8 mg Tablet,Disintegrating 8 mg translingual Q8H PRN (Reason: nausea and vomiting) Qty: 10 0RF nystatin 100,000 unit/gram Cream 1 appl topical BID Qty: 15 0RF Protocol: Apply to: Apply to: skin folds finasteride 5 mg Tablet 5 mg PO DAILY Qty: 30 0RF (DME) Mag&Al/Sim/Diphenhyd/Lidocaine [Magic Mouthwash] See Rx Instructions .Route .MEDSUPPLY Qty: 1 1RF Rx Instructions: As directed Continued estradiol 0.1 mg/24 hr Patch Weekly 3 patch TRANSDERMAL Q72H Qty: 12 0RF Discontinued ondansetron 8 mg tablet,disintegrating 8 mg PO Q8H PRN (Reason: nausea and vomiting) Qty: 10 0RF oxycodone-acetaminophen [Percocet] 5-325 mg tablet 1 tab PO Q4-6H PRN (Reason: pain) Qty: 10 0RF Rx Instructions: Partial Fill upon patient request. sennosides [senna] 8.6 mg tablet 8.6 mg PO BID lisinopril 20 mg tablet 20 mg PO DAILY mirtazapine 30 mg tablet 30 mg PO BEDTIME docusate sodium 100 mg capsule 100 mg PO BID finasteride 5 mg tablet 5 mg PO DAILY escitalopram oxalate 10 mg tablet 15 mg PO DAILY atomoxetine [Strattera] 60 mg capsule 60 mg PO DAILY topiramate 50 mg tablet 50 mg PO BEDTIME Eliquis 5 mg tablet 5 mg PO BID torsemide 20 mg tablet 20 mg PO BID emtricitabine-tenofovir (TDF) 200-300 mg tablet 1 tab PO DAILY pregabalin 150 mg capsule 150 mg PO BID Discharge Orders: Discharge Order (Routine); Ordered 08/21/22 Ordered By: Mildred Cerda Diet: Regular diet Activity on Discharge: As tolerated Stand Alone Forms: Patient Portal Discharge page Care Plan Goals: 1. Maintain mood 2. No SI/HI 3. No aggression towards self or others Health Concerns: Follow up with PCP Plan of Treatment: 1. take medications as prescribed 2. Go to nearest ED or call 911 in event of emergency Assessment: Pt with less labile affect. No SI/HI. No overt psychosis or delusions. Pt sleeping and eating well. No signs of aggression towards self or others. Patient Instructions: Depression (ED), Wound Dehiscence (ED)
[2022-08-21 08:23] VITALS: BP 132/82; PULSE 88; RESP 17; TEMP 36.6; O2SAT 99
[2022-08-21] MEDS: Emtricitabin/Tenofovir 200/300 TABLET 1 TAB PO (08:25)
[2022-08-21] MEDS: cloNIDine HCL 0.1 MG TABLET PO (08:25)
[2022-08-21] MEDS: Finasteride 5 MG TABLET PO (08:25)
[2022-08-21] MEDS: Docusate Sodium 100 MG CAPSULE PO (08:25)
[2022-08-21] MEDS: Sennosides 8.6 MG TABLET PO (08:25)
[2022-08-21] MEDS: Apixaban 5 MG TABLET PO (08:25)
[2022-08-21] MEDS: Torsemide 20 MG TABLET PO (08:25)
[2022-08-21] MEDS: Pregabalin 150 MG CAPSULE PO (08:26)
[2022-08-21] MEDS: lisinopriL 20 MG TABLET PO (08:26)
== END 2022-08-21 09:58 | disposition home or self-care (01) | DRG 885 ==
LOC: HO.ED 17:20 → HO.PADLT16 08-14 21:00
PROVIDERS: Emergency Medicine; Admitting Provider Psychiatry & Neurology Psychiatry; Emergency Provider Emergency Medicine Emergency Medical Services; Visit Provider Psychiatry & Neurology Psychiatry
DX: F31.12 Bipolar disorder, current episode manic without psychotic features, moderate (principal); I10 Essential (primary) hypertension; F64.0 Transsexualism; Z20.822 Contact with and (suspected) exposure to COVID-19; Z79.01 Long term (current) use of anticoagulants; Z79.899 Other long term (current) drug therapy
CPT/HCPCS: 36415; 80048; 80307; 81003; 85025; 87635; 99282; 99285